=== PATIENT | male | born 1935 | race Caucasian/White ===

== ENCOUNTER → 2016-08-26 | Outpatient (CLI) | payer MEDICARE, OTHER ==
[~2016-08-26] MED LIST: ALLO300T2 PO; AMLO10TA82 PO; ASPI-875 PO; ATOR40TA PO; CHOL200025 PO; CYCL5TAB11 PO; DCS100C PO; FAMO20TA13 PO; FOLI0.4T2 PO; IRBE300T9 PO; ISM30TCR PO; ISM60TCR PO; MELO-195 PO; MTP25TSR PO; MULT-1029 PO; OMEG1CAP51 PO; RT-ALBUTEROL SULF 2.5 MG/3 ML PRE-MIX VIAL IH ONE; TERA2CAP13 PO; TESTOSTERONE INJ
== END ==
LOC: RT 13:27
PROVIDERS: ATTEND Family Medicine
DX: R06.00 Dyspnea, unspecified (principal); F17.210 Nicotine dependence, cigarettes, uncomplicated
CPT/HCPCS: 94060; 94640; 94726; 94729

== ENCOUNTER → 2016-09-08 | Outpatient (CLI) | payer MEDICARE, OTHER ==
[~2016-09-08] MED LIST changes: -RT-ALBUTEROL SULF 2.5 MG/3 ML PRE-MIX VIAL IH ONE
--- NOTE | 2016-09-08 15:25 | Diagnostic Imaging Report ---
EXAMINATION: DEXA scan. INDICATION: Osteopenia. TECHNIQUE: Bone mineral density estimated based on dual energy radiography over the lumbar spine and femoral necks, was performed. FINDINGS: The lumbar spine T-score is 3.4. This is exaggerated by degenerative sclerosis despite attempted correction and femoral neck density measurement would be more accurate in this patient. T score over the left femoral neck is -0.9 and on the right side is -1.3 for an average of -1.1. IMPRESSION: Osteopenia. Dictated by: Dictated on workstation # [id number]
== END ==
LOC: RAD 09:47
PROVIDERS: ATTEND Family Medicine
DX: M85.872 Other specified disorders of bone density and structure, left ankle and foot (principal)
CPT/HCPCS: 77080

== ENCOUNTER → 2016-10-24 | Outpatient (CLI) | payer MEDICARE, OTHER ==
--- NOTE | 2016-10-24 11:23 | Diagnostic Imaging Report ---
PROCEDURE: CT chest without contrast. TECHNIQUE: Multiple contiguous axial images were obtained through the chest without the use of intravenous contrast. INDICATION: Obstructive lung disease. Shortness of breath. FINDINGS: There is beam hardening artifact related to right shoulder replacement. In the right lower lobe posterolateral aspect, there is a 6 mm nodule with central calcification, better appreciated on an image on a thin section reconstruction performed on [employer] with a saved image sent to PACS. This is consistent with a benign calcified granuloma. There is no significant consolidation, mass, or suspicious nodule seen otherwise. No significant interstitial lung disease, emphysema, or bronchiectasis is seen. There is mild ectasia of the thoracic aorta. The heart size is normal. There is no mediastinal mass or significantly enlarged lymph node. No axillary significantly enlarged node. The jose are not opacified on this unenhanced exam with no obvious hilar mass or significant lymphadenopathy. No pericardial or pleural effusion. There are prominent atherosclerotic coronary artery calcifications. Sections in the upper abdomen demonstrate multiple calcified gallstones and a mild degree of diffuse hepatic steatosis. Prominent degenerative changes of the thoracic spine are seen. IMPRESSION: 1. No acute pulmonary abnormality. 2. Cholelithiasis. 3. Hepatic steatosis. Dictated by: Dictated on workstation # [id number]
== END ==
LOC: RAD 08:28
PROVIDERS: ATTEND Nurse Practitioner Family
DX: K80.20 Calculus of gallbladder without cholecystitis without obstruction; R06.00 Dyspnea, unspecified; K76.0 Fatty (change of) liver, not elsewhere classified; G47.34 Idiopathic sleep related nonobstructive alveolar hypoventilation
CPT/HCPCS: 71250

== ENCOUNTER 2016-11-10 19:50 | Outpatient (CLI) | payer MEDICARE, OTHER | END 2016-11-11 06:15 | disposition home or self-care (01) | LOC: SLEEP 19:50 | PROVIDERS: ATTEND Nurse Practitioner Family | DX: G47.34 Idiopathic sleep related nonobstructive alveolar hypoventilation (principal); G47.50 Parasomnia, unspecified | CPT/HCPCS: 95811 ==

== ENCOUNTER 2017-06-20 15:35 | Emergency (ER) | payer MEDICARE, OTHER ==
[~2017-06-20] VITALS: Ht 177.8 cm; Wt 93.4 kg
--- OUTSIDE RECORDS SUMMARY | 2017-06-20 15:42 | XMS REPORT | CCD ---
Author Author [facility]ice [facility] Organization [facility] Address [address] [place] [address] Phone Care Team Providers Care Boiler Technician Name Role Phone PP Unavailable CCM Unavailable Summary Purpose Interface Exchange Insurance Providers Payer name Policy type / Coverage type Covered republican ID Effective Begin Date Effective End Date Earlier Media Commercial Insurance [id number] Unknown Unknown Family history Father Diagnosis Age At Onset Arthritis Unknown Heart Attack Unknown Daughter Nunu Salvador Diagnosis Age At Onset Melanoma Unknown Runs in the family Diagnosis Age At Onset Colon cancer Unknown brain cancer Unknown Social History Social History Element Codes Description Effective Dates Marital status Unknown Amee 08/18/2016 Number of children Unknown 2 10/22/2014 Employment Unknown Retired 10/22/[address]: 675756 Currently drinks alcohol 10/22/2014 Allergies, Adverse Reactions, Alerts Allergies, Adverse Reactions, Alerts data not found Past Medical History Illness Codes Condition Status Onset Date Resolved Date Essential (primary) hypertension ICD-9: 401.1 ICD-10: I10 Active 08/18/2016 Unknown Mixed hyperlipidemia ICD-9: 272.4 ICD-10: E78.2 Active 10/21/2014 Unknown Obstructive sleep apnea (adult) (pediatric) ICD-9: 327.23 ICD-10: G47.33 Active 12/26/2016 Unknown Encounter for immunization ICD-9: V04.81 ICD-10: Z23 Active 01/16/2017 Unknown Benign prostatic hyperplasia without lower urinary tract symptoms ICD-9: 600.00 ICD-10: N40.0 Active 12/26/2016 Unknown Other forms of dyspnea ICD-9: 786.09 ICD-10: R06.09 Active 12/08/2015 Unknown Other specified disorders of bone density and structure, left ankle and foot ICD-9: 733.90 ICD-10: M85.872 Active 08/18/2016 Unknown Essential (primary) hypertension ICD-9: 401.9 ICD-10: I10 Active 10/21/2014 Unknown Slow transit constipation ICD-9: 564.01 ICD-10: K59.01 Active 08/04/2015 Unknown Encounter for immunization ICD-9: V03.9 ICD-10: Z23 Active 12/29/2015 Unknown Tinea corporis ICD-9: 110.5 ICD-10: B35.4 Active 12/29/2015 Unknown Anemia, unspecified ICD-9: 285.9 ICD-10: D64.9 Active 12/08/2015 Unknown Other myositis, unspecified lower leg ICD-9: 729.1 ICD-10: M60.869 Active 10/21/2014 Unknown Pain in leg, unspecified ICD-9: 729.5 ICD-10: M79.606 Active 02/01/2015 Unknown Hyperlipidemia Unknown Active 10/22/2014 Unknown Hypertension Unknown Active 10/22/2014 Unknown ESSENTIAL HYPERTENSION ICD-9: 401.9 Active 10/21/2014 Unknown HYPERLIPIDEMIA ICD-9: 272.4 Active 10/21/2014 Unknown MYALGIA AND MYOSITIS ICD-9: 729.1 Active 10/21/2014 Unknown Problems Condition Codes Effective Dates Condition Status Essential (primary) hypertension ICD-9: 401.1 ICD-10: I10 08/18/2016 Active Mixed hyperlipidemia ICD-9: 272.4 ICD-10: E78.2 10/21/2014 Active Obstructive sleep apnea (adult) (pediatric) ICD-9: 327.23 ICD-10: G47.33 12/26/2016 Active Encounter for immunization ICD-9: V04.81 ICD-10: Z23 01/16/2017 Active Benign prostatic hyperplasia without lower urinary tract symptoms ICD-9: 600.00 ICD-10: N40.0 12/26/2016 Active Other forms of dyspnea ICD-9: 786.09 ICD-10: R06.09 12/08/2015 Active Other specified disorders of bone density and structure, left ankle and foot ICD-9: 733.90 ICD-10: M85.872 08/18/2016 Active Essential (primary) hypertension ICD-9: 401.9 ICD-10: I10 10/21/2014 Active Slow transit constipation ICD-9: 564.01 ICD-10: K59.01 08/04/2015 Active Encounter for immunization ICD-9: V03.9 ICD-10: Z23 12/29/2015 Active Tinea corporis ICD-9: 110.5 ICD-10: B35.4 12/29/2015 Active Anemia, unspecified ICD-9: 285.9 ICD-10: D64.9 12/08/2015 Active Other myositis, unspecified lower leg ICD-9: 729.1 ICD-10: M60.869 10/21/2014 Active Pain in leg, unspecified ICD-9: 729.5 ICD-10: M79.606 02/01/2015 Active Hyperlipidemia Unknown 10/22/2014 Active Hypertension Unknown 10/22/2014 Active ESSENTIAL HYPERTENSION ICD-9: 401.9 10/21/2014 Active HYPERLIPIDEMIA ICD-9: 272.4 10/21/2014 Active MYALGIA AND MYOSITIS ICD-9: 729.1 10/21/2014 Active Medications Medication Codes Instructions Start Date Stop Date Status Fill Instructions Avapro 300 mg tablet RxNorm: 188330 TAKE 1 TABLET DAILY 201604/06/2018 Active meloxicam 15 mg tablet RxNorm: 175574 TAKE 1 TABLET DAILY 04/0704/01/2018 Active isosorbide mononitrate ER 30 mg tablet,extended release 24 hr RxNorm: 182037 TAKE 1 TABLET DAILY 04/07/2017 04/01/2018 Active atorvastatin 20 mg tablet RxNorm: 863886 TAKE 1 TABLET DAILY 10/09/2017 Active Breo Ellipta 100 mcg-25 mcg/dose powder for inhalation RxNorm: 4386914 1 Puff(s) INH daily 09/30/2016 09/24/2017 Active Breo Ellipta 100 mcg-25 mcg/dose powder for inhalation RxNorm: 3564474 1 Puff(s) INH daily 09/30/2016 09/29/2016 Inactive Calcium 600 + D(3) 600 mg-125 unit tablet RxNorm: 7507861 1 Tablet(s) PO daily 09/19/2016 No Stop Date Active terazosin 2 mg capsule RxNorm: 319080 TAKE 1 CAPSULE AT BEDTIME 09/02/2016 08/27/2017 Active metoprolol succinate ER 25 mg tablet,extended release 24 hr RxNorm: 483236 TAKE 1 TABLET DAILY 07/29/2016 07/23/2017 Active Avapro 300 mg tablet RxNorm: 278358 TAKE 1 TABLET DAILY 201604/08/2017 Inactive allopurinol 300 mg tablet RxNorm: 148242 TAKE 1 TABLET DAILY 06/14/2017 Active amoxicillin 500 mg capsule RxNorm: 715380 4 Capsule(s) PO daily 06/20/2016 06/23/2016 Inactive clotrimazole-betamethasone 1 %-0.05 % topical cream RxNorm: 567498 APPLY 1 APPLICATION TOPICALLY 3 TIMES A DAY 06/03/2016 08/31/2016 Inactive famotidine 20 mg tablet RxNorm: 241252 TAKE 1 TABLET TWICE A DAY 05/26/2016 05/20/2017 Inactive meloxicam 15 mg tablet RxNorm: 970862 1 Tablet(s) PO daily 06/201604/06/2017 Inactive isosorbide mononitrate ER 30 mg tablet,extended release 24 hr RxNorm: 087584 TAKE 1 TABLET DAILY 04/07/2016 04/01/2017 Inactive Diflucan 150 mg tablet RxNorm: 685493 1 Tablet(s) PO daily 01/12/2016 Inactive atorvastatin 20 mg tablet RxNorm: 619433 TAKE 1 TABLET DAILY 12/10/2016 Inactive Diflucan 150 mg tablet RxNorm: 032918 1 Tablet(s) PO daily 12/22/2015 Inactive Avapro 300 mg tablet RxNorm: 029550 TAKE 1 TABLET DAILY 201507/12/2016 Inactive terazosin 2 mg capsule RxNorm: 404800 1 Capsule(s) PO [facility] 09/1609/01/2016 Inactive terazosin 2 mg capsule RxNorm: 692113 TAKE 1 CAPSULE DAILY 03/07/2016 Inactive metoprolol succinate ER 25 mg tablet,extended release 24 hr RxNorm: 562317 1 Tablet(s) PO daily 07/22/2015 07/15/2016 Inactive allopurinol 300 mg tablet RxNorm: 303353 1 Tablet(s) PO daily 06/18/2015 06/11/2016 Inactive isosorbide mononitrate ER 30 mg tablet,extended release 24 hr RxNorm: 793567 1 Tablet(s) PO daily 03/31/2015 03/24/2016 Inactive meloxicam 15 mg tablet RxNorm: 954854 1 Tablet(s) PO daily 03/09/2016 Inactive coenzyme Q10 100 mg capsule RxNorm: 588862 1 Capsule(s) PO daily 02/02/2015 03/03/2015 Inactive ketoconazole 2 % shampoo RxNorm: 605654 1 Application TOP daily 02/02/2015 04/02/2015 Inactive clotrimazole-betamethasone 1 %-0.05 % topical cream RxNorm: 667072 1 Application TOP TID 02/02/2015 06/01/2015 Inactive Avapro 300 mg tablet RxNorm: 814076 1 Tablet(s) PO daily 201410/19/2015 Inactive famotidine 20 mg tablet RxNorm: 264399 1 Tablet(s) PO BID 01/0103/25/2016 Inactive famotidine 20 mg tablet RxNorm: 803275 1 Tablet(s) PO daily 12/31/2014 Inactive famotidine 20 mg tablet RxNorm: 875211 1 Tablet(s) PO daily 12/31/2014 Inactive famotidine 20 mg tablet RxNorm: 725494 1 Tablet(s) PO daily 12/31/2014 Inactive terazosin 2 mg capsule RxNorm: 697764 1 Capsule(s) PO daily 07/201409/09/2015 Inactive terazosin 2 mg capsule RxNorm: 181789 1 Capsule(s) PO daily 07/201412/18/2014 Inactive atorvastatin 20 mg tablet RxNorm: 874814 1 Tablet(s) PO daily 10/22/2014 12/16/2015 Inactive amoxicillin 500 mg capsule RxNorm: 270979 4 Capsule(s) PO daily 10/22/2014 10/25/2014 Inactive atorvastatin 40 mg tablet RxNorm: 377784 1 Tablet(s) PO daily 09/18/2014 10/21/2014 Inactive atorvastatin 40 mg tablet RxNorm: 546156 1 Tablet(s) PO daily 09/18/2014 09/17/2014 Inactive amlodipine 10 mg tablet RxNorm: 502928 1 Tablet(s) PO daily No Start Date Active Colace 100 mg capsule RxNorm: 3136939 1 Capsule(s) PO BID No Start Date Active aspirin 81 mg tablet RxNorm: 044624 1 Tablet(s) PO daily No Start Date Active Vitamin D3 5,000 unit tablet RxNorm: 791696 1 Tablet(s) PO daily No Start Date Active metoprolol succinate ER 25 mg tablet,extended release 24 hr RxNorm: 045157 1 Tablet(s) PO daily No Start Date 2015 Inactive omega 3-vitamin E-fish oil oral RxNorm: 4419 oral No Start Date 08/04/2015 Inactive Calcium 600 oral RxNorm: oral No Start Date 09/18/2016 Inactive isosorbide mononitrate ER 30 mg tablet,extended release 24 hr RxNorm: 026567 1 Tablet(s) PO daily No Start Date 2014 Inactive Avapro 300 mg tablet RxNorm: 890057 1 Tablet(s) PO daily No Start Date 01/22/2015 Inactive allopurinol 300 mg tablet RxNorm: 932847 1 Tablet(s) PO daily No Start Date 06/17/2015 Inactive Vitamin D3 (with calcium carbonate) oral RxNorm: 433500 oral No Start Date 09/18/2016 Inactive famotidine 20 mg tablet RxNorm: 104982 1 Tablet(s) PO daily No Start Date 12/29/2014 Inactive multivitamin oral RxNorm: 23488 oral No Start Date 08/04/2015 Inactive terazosin 2 mg tablet RxNorm: 562360 1 Tablet(s) PO QHS No Start Date 09/16/2015 Inactive meloxicam 15 mg tablet RxNorm: 803726 1 Tablet(s) PO daily No Start Date 03/15/2015 Inactive Lipitor 40 mg tablet RxNorm: 273135 1 Tablet(s) PO daily No Start Date 02/02/2015 Inactive Medication Administered No Medication Administered data Immunizations Vaccine Codes Date Status Influenza CVX: 141 01/16/2017 completed Influenza CVX: 141 12/30/2015 completed Pneumococcal (Adult) CVX: 133 12/30/2015 completed Influenza CVX: 141 02/15/2014 completed Zoster CVX: 121 08/16/2011 completed Assessments Condition Codes Effective Dates Mixed hyperlipidemia ICD-10: E78.2 ICD-9: 272.4 05/29/2017 Essential (primary) hypertension ICD-10: I10 ICD-9: 401.1 05/29/2017 Obstructive sleep apnea (adult) (pediatric) ICD-10: G47.33 ICD-9: 327.23 05/29/2017 Encounter for immunization ICD-10: Z23 ICD-9: V04.81 01/16/2017 Benign prostatic hyperplasia without lower urinary tract symptoms ICD-10: N40.0 ICD-9: 600.00 12/26/2016 Other forms of dyspnea ICD-10: R06.09 ICD-9: 786.09 08/18/2016 Other specified disorders of bone density and structure, left ankle and foot ICD-10: M85.872 ICD-9: 733.90 08/18/2016 Slow transit constipation ICD-10: K59.01 ICD-9: 564.01 04/28/2016 Essential (primary) hypertension ICD-10: I10 ICD-9: 401.9 04/28/2016 Tinea corporis ICD-10: B35.4 ICD-9: 110.5 12/30/2015 Encounter for immunization ICD-10: Z23 ICD-9: V03.9 12/30/2015 Anemia, unspecified ICD-10: D64.9 ICD-9: 285.9 12/09/2015 Pain in leg, unspecified ICD-10: M79.606 ICD-9: 729.5 02/02/2015 Other myositis, unspecified lower leg ICD-10: M60.869 ICD-9: 729.1 02/02/2015 HYPERLIPIDEMIA ICD-9: 272.4 10/22/2014 ESSENTIAL HYPERTENSION ICD-9: 401.9 10/22 MYALGIA AND MYOSITIS ICD-9: 729.1 2014 Reason For Visit Reason For Visit Effective Dates Notes hypertension 05/29/2017 hypertension 01/16/2017 hypertension 12/26/2016 hypertension 08/18/2016 hypertension 04/28/2016 hypertension 12/30/2015 hypertension 12/09/2015 myalgias 08/05/2015 myalgias 02/02/2015 myalgias 10/22/2014 Results Observation Observation Code Item Item Code Result Date Comp Metabolic Jwg513 NA 143 mEq/L 05/18/2017 Comp Metabolic Oyg059 K 5.1 mEq/L 05/18/2017 Comp Metabolic Kmp021 CL 105 mEq/L 05/18/2017 Comp Metabolic Epu701 CO2 30.0 mEq/L 05/18/2017 Comp Metabolic Ifo933 ANION GAP 13 05/18/2017 Comp Metabolic Uje176 GLUCOSE 108 mg/dL 05/18/2017 Comp Metabolic Ejy194 Creat 1.0 mg/dL 05/18/2017 Comp Metabolic Dsi266 eGFR 77 ml/min/1.73m2 05/18/2017 Comp Metabolic Qpf127 BUN 12 mg/dL 05/18/2017 Comp Metabolic Qno359 B/C Ratio 12.1 Ratio 05/18/2017 Comp Metabolic Fjx146 CALCIUM 9.7 mg/dL 05/18/2017 Comp Metabolic Wzm979 ALK PHOS 140 U/L 05/18/2017 Comp Metabolic Dar577 AST(SGOT) 18 U/L 05/18/2017 Comp Metabolic Xmc753 ALT(SGPT) 30 U/L 05/18/2017 Comp Metabolic Oxq621 BILI T 0.6 mg/dL 05/18/2017 Comp Metabolic Uys296 ALBUMIN 4.1 g/dL 05/18/2017 Comp Metabolic Vdq343 TPRO 6.5 g/dL 05/18/2017 Comp Metabolic Nks835 GLOB 2.4 g/dL 05/18/2017 Comp Metabolic Jwt927 A/G Ratio 1.7 Ratio 05/18/2017 Comp Metabolic Pbz241 Osmo 285 mOsmo 05/18/2017 B12 Uas117 B12 1065.00 pg/ml 05/18/2017 Tsh Ord6 TSH (3rd IS) 1.53 uIU/mL 05/18/2017 Cbc With Differential Ord2 WBC 9.29 K/ul 05/18/2017 Cbc With Differential Ord2 RBC 4.18 M/ul 05/18/2017 Cbc With Differential Ord2 HGB 13.6 g/dl 05/18/2017 Cbc With Differential Ord2 Neut% 58.0 % 05/18/2017 Cbc With Differential Ord2 HCT 41.1 % 05/18/2017 Cbc With Differential Ord2 MCV 98.3 fl 05/18/2017 Cbc With Differential Ord2 Lymph% 29.0 % 05/18/2017 Cbc With Differential Ord2 MCH 32.5 pg 05/18/2017 Cbc With Differential Ord2 [place]% 8.9 % 05/18/2017 Cbc With Differential Ord2 MCHC 33.1 pg 05/18/2017 Cbc With Differential Ord2 Eos% 3.9 % 05/18/2017 Cbc With Differential Ord2 PLT 184 K/ul 05/18/2017 Cbc With Differential Ord2 Baso% 0.2 % 05/18/2017 Cbc With Differential Ord2 RDW 13.4 % 05/18/2017 Cbc With Differential Ord2 Neut ABS# 5.39 K/ul 05/18/2017 Cbc With Differential Ord2 Lymph ABS# 2.69 K/ul 05/18/2017 Cbc With Differential Ord2 [place] ABS# 0.8 K/ul 05/18/2017 Cbc With Differential Ord2 Eos ABS# 0.4 K/ul 05/18/2017 Cbc With Differential Ord2 Baso ABS# 0.0 K/ul 05/18/2017 Lipid Ord30 CHOL 165 mg/dL 05/18/2017 Lipid Ord30 HDL 68.0 mg/dl 05/18/2017 Lipid Ord30 TRIG 168 mg/dL 05/18/2017 Lipid Ord30 LDL 63 mg/dL 05/18/2017 Lipid Ord30 C/HDL 2.4 Ratio 05/18/2017 Total Psa Ord10 PSA 1.37 ng/mL 12/23/2016 Cbc With Differential Ord2 WBC 7.23 K/ul 12/23/2016 Cbc With Differential Ord2 RBC 3.86 M/ul 12/23/2016 Cbc With Differential Ord2 HGB 12.8 g/dl 12/23/2016 Cbc With Differential Ord2 Neut% 51.6 % 12/23/2016 Cbc With Differential Ord2 HCT 37.9 % 12/23/2016 Cbc With Differential Ord2 MCV 98.2 fl 12/23/2016 Cbc With Differential Ord2 Lymph% 33.6 % 12/23/2016 Cbc With Differential Ord2 MCH 33.2 pg 12/23/2016 Cbc With Differential Ord2 [place]% 10.1 % 12/23/2016 Cbc With Differential Ord2 MCHC 33.8 pg 12/23/2016 Cbc With Differential Ord2 Eos% 4.4 % 12/23/2016 Cbc With Differential Ord2 PLT 184 K/ul 12/23/2016 Cbc With Differential Ord2 Baso% 0.3 % 12/23/2016 Cbc With Differential Ord2 RDW 13.4 % 12/23/2016 Cbc With Differential Ord2 Neut ABS# 3.73 K/ul 12/23/2016 Cbc With Differential Ord2 Lymph ABS# 2.43 K/ul 12/23/2016 Cbc With Differential Ord2 [place] ABS# 0.7 K/ul 12/23/2016 Cbc With Differential Ord2 Eos ABS# 0.3 K/ul 12/23/2016 Cbc With Differential Ord2 Baso ABS# 0.0 K/ul 12/23/2016 B12 Hpw151 B12 1132.00 pg/ml 12/23/2016 Lipid Ord30 CHOL 168 mg/dL 12/23/2016 Lipid Ord30 HDL 57.0 mg/dl 12/23/2016 Lipid Ord30 TRIG 138 mg/dL 12/23/2016 Lipid Ord30 LDL 83 mg/dL 12/23/2016 Lipid Ord30 C/HDL 2.9 Ratio 12/23/2016 Comp Metabolic Dow587 NA 142 mEq/L 12/23/2016 Comp Metabolic Yaf659 K 4.5 mEq/L 12/23/2016 Comp Metabolic Cfd950 CL 106 mEq/L 12/23/2016 Comp Metabolic Gda683 CO2 28.0 mEq/L 12/23/2016 Comp Metabolic Eou994 ANION GAP 13 12/23/2016 Comp Metabolic Ici258 GLUCOSE 119 mg/dL 12/23/2016 Comp Metabolic Iiz626 Creat 0.9 mg/dL 12/23/2016 Comp Metabolic Eck888 eGFR 88 ml/min/1.73m2 12/23/2016 Comp Metabolic Wza665 BUN 14 mg/dL 12/23/2016 Comp Metabolic Whi379 B/C Ratio 15.9 Ratio 12/23/2016 Comp Metabolic Yst100 CALCIUM 9.1 mg/dL 12/23/2016 Comp Metabolic Zbz093 ALK PHOS 105 U/L 12/23/2016 Comp Metabolic Tdf047 AST(SGOT) 18 U/L 12/23/2016 Comp Metabolic Vlm606 ALT(SGPT) 21 U/L 12/23/2016 Comp Metabolic Siw359 BILI T 0.6 mg/dL 12/23/2016 Comp Metabolic Wau531 ALBUMIN 4.0 g/dL 12/23/2016 Comp Metabolic Zsb652 TPRO 6.3 g/dL 12/23/2016 Comp Metabolic Paz711 GLOB 2.3 g/dL 12/23/2016 Comp Metabolic Rmt892 A/G Ratio 1.7 Ratio 12/23/2016 Comp Metabolic Aje670 Osmo 285 mOsmo 12/23/2016 Lipid Ord30 CHOL 209 mg/dL 04/25/2016 Lipid Ord30 HDL 61.0 mg/dl 04/25/2016 Lipid Ord30 TRIG 276 mg/dL 04/25/2016 Lipid Ord30 LDL 93 mg/dL 04/25/2016 Lipid Ord30 C/HDL 3.4 Ratio 04/25/2016 Comp Metabolic Nea117 NA 139 mEq/L 04/25/2016 Comp Metabolic Nau963 K 5.0 mEq/L 04/25/2016 Comp Metabolic Jaj152 CL 104 mEq/L 04/25/2016 Comp Metabolic Hnv811 CO2 29.0 mEq/L 04/25/2016 Comp Metabolic Ovg432 ANION GAP 11 04/25/2016 Comp Metabolic Kgl001 GLUCOSE 110 mg/dL 04/25/2016 Comp Metabolic Orh359 Creat 1.0 mg/dL 04/25/2016 Comp Metabolic Kns618 eGFR 77 ml/min/1.73m2 04/25/2016 Comp Metabolic Qbz993 BUN 17 mg/dL 04/25/2016 Comp Metabolic Zto184 B/C Ratio 17.2 Ratio 04/25/2016 Comp Metabolic Ker969 CALCIUM 9.6 mg/dL 04/25/2016 Comp Metabolic Kog812 ALK PHOS 114 U/L 04/25/2016 Comp Metabolic Ieg015 AST(SGOT) 22 U/L 04/25/2016 Comp Metabolic Gey552 ALT(SGPT) 24 U/L 04/25/2016 Comp Metabolic Ggt524 BILI T 0.6 mg/dL 04/25/2016 Comp Metabolic Xte282 ALBUMIN 4.4 g/dL 04/25/2016 Comp Metabolic Ail059 TPRO 6.8 g/dL 04/25/2016 Comp Metabolic Vae656 GLOB 2.4 g/dL 04/25/2016 Comp Metabolic Dms954 A/G Ratio 1.8 Ratio 04/25/2016 Comp Metabolic Mqq378 Osmo 280 mOsmo 04/25/2016 B12 Vmt050 B12 264.00 pg/ml 04/25/2016 Cbc With Differential Ord2 WBC 7.82 K/ul 04/25/2016 Cbc With Differential Ord2 RBC 4.26 M/ul 04/25/2016 Cbc With Differential Ord2 HGB 13.9 g/dl 04/25/2016 Cbc With Differential Ord2 Neut% 51.8 % 04/25/2016 Cbc With Differential Ord2 HCT 41.1 % 04/25/2016 Cbc With Differential Ord2 MCV 96.5 fl 04/25/2016 Cbc With Differential Ord2 Lymph% 33.5 % 04/25/2016 Cbc With Differential Ord2 MCH 32.6 pg 04/25/2016 Cbc With Differential Ord2 [place]% 10.1 % 04/25/2016 Cbc With Differential Ord2 MCHC 33.8 pg 04/25/2016 Cbc With Differential Ord2 Eos% 4.3 % 04/25/2016 Cbc With Differential Ord2 PLT 177 K/ul 04/25/2016 Cbc With Differential Ord2 Baso% 0.3 % 04/25/2016 Cbc With Differential Ord2 RDW 13.1 % 04/25/2016 Cbc With Differential Ord2 Neut ABS# 4.05 K/ul 04/25/2016 Cbc With Differential Ord2 Lymph ABS# 2.62 K/ul 04/25/2016 Cbc With Differential Ord2 [place] ABS# 0.8 K/ul 04/25/2016 Cbc With Differential Ord2 Eos ABS# 0.3 K/ul 04/25/2016 Cbc With Differential Ord2 Baso ABS# 0.0 K/ul 04/25/2016 B12 Hmo515 B12 239.00 pg/ml 12/09/2015 Tsh Ord6 hTSH II 1.24 uIU/mL 12/07/2015 Comp Metabolic Hqi820 NA 140 mEq/L 12/07/2015 Comp Metabolic Hds681 K 4.6 mEq/L 12/07/2015 Comp Metabolic Zlb324 CL 105 mEq/L 12/07/2015 Comp Metabolic Bib820 CO2 29.0 mEq/L 12/07/2015 Comp Metabolic Cvt568 ANION GAP 11 12/07/2015 Comp Metabolic Xhy729 GLUCOSE 116 mg/dL 12/07/2015 Comp Metabolic Jrv123 Creat 0.9 mg/dL 12/07/2015 Comp Metabolic Zmi045 eGFR 89 ml/min/1.73m2 12/07/2015 Comp Metabolic Oqv837 BUN 11 mg/dL 12/07/2015 Comp Metabolic Sbu270 B/C Ratio 12.6 Ratio 12/07/2015 Comp Metabolic Aht298 CALCIUM 9.4 mg/dL 12/07/2015 Comp Metabolic Edb531 ALK PHOS 94 U/L 12/07/2015 Comp Metabolic Gbo157 AST(SGOT) 16 U/L 12/07/2015 Comp Metabolic Apv369 ALT(SGPT) 16 U/L 12/07/2015 Comp Metabolic Tdi566 BILI T 0.6 mg/dL 12/07/2015 Comp Metabolic Epl891 ALBUMIN 4.1 g/dL 12/07/2015 Comp Metabolic Imt533 TPRO 6.4 g/dL 12/07/2015 Comp Metabolic Fvl994 GLOB 2.3 g/dL 12/07/2015 Comp Metabolic Cce636 A/G Ratio 1.8 Ratio 12/07/2015 Comp Metabolic Czi009 Osmo 280 mOsmo 12/07/2015 Lipid Ord30 CHOL 186 mg/dL 12/07/2015 Lipid Ord30 HDL 56.0 mg/dl 12/07/2015 Lipid Ord30 TRIG 199 mg/dL 12/07/2015 Lipid Ord30 LDL 90 mg/dL 12/07/2015 Lipid Ord30 C/HDL 3.3 Ratio 12/07/2015 Cbc With Differential Ord2 WBC 7.44 K/ul 12/07/2015 Cbc With Differential Ord2 RBC 4.06 M/ul 12/07/2015 Cbc With Differential Ord2 HGB 13.3 g/dl 12/07/2015 Cbc With Differential Ord2 Neut% 48.5 % 12/07/2015 Cbc With Differential Ord2 HCT 39.7 % 12/07/2015 Cbc With Differential Ord2 MCV 97.8 fl 12/07/2015 Cbc With Differential Ord2 Lymph% 36.2 % 12/07/2015 Cbc With Differential Ord2 MCH 32.8 pg 12/07/2015 Cbc With Differential Ord2 [place]% 9.9 % 12/07/2015 Cbc With Differential Ord2 MCHC 33.5 pg 12/07/2015 Cbc With Differential Ord2 Eos% 5.0 % 12/07/2015 Cbc With Differential Ord2 PLT 169 K/ul 12/07/2015 Cbc With Differential Ord2 Baso% 0.4 % 12/07/2015 Cbc With Differential Ord2 RDW 13.3 % 12/07/2015 Cbc With Differential Ord2 Neut ABS# 3.61 K/ul 12/07/2015 Cbc With Differential Ord2 Lymph ABS# 2.69 K/ul 12/07/2015 Cbc With Differential Ord2 [place] ABS# 0.7 K/ul 12/07/2015 Cbc With Differential Ord2 Eos ABS# 0.4 K/ul 12/07/2015 Cbc With Differential Ord2 Baso ABS# 0.0 K/ul 12/07/2015 Cbc With Differential Ord2 WBC 7.60 K/ul 07/31/2015 Cbc With Differential Ord2 RBC 4.05 M/ul 07/31/2015 Cbc With Differential Ord2 HGB 12.7 g/dl 07/31/2015 Cbc With Differential Ord2 Neut% 51.4 % 07/31/2015 Cbc With Differential Ord2 HCT 39.2 % 07/31/2015 Cbc With Differential Ord2 MCV 96.8 fl 07/31/2015 Cbc With Differential Ord2 Lymph% 33.0 % 07/31/2015 Cbc With Differential Ord2 MCH 31.4 pg 07/31/2015 Cbc With Differential Ord2 [place]% 11.2 % 07/31/2015 Cbc With Differential Ord2 MCHC 32.4 pg 07/31/2015 Cbc With Differential Ord2 Eos% 4.1 % 07/31/2015 Cbc With Differential Ord2 PLT 180 K/ul 07/31/2015 Cbc With Differential Ord2 Baso% 0.3 % 07/31/2015 Cbc With Differential Ord2 RDW 13.4 % 07/31/2015 Cbc With Differential Ord2 Neut ABS# 3.91 K/ul 07/31/2015 Cbc With Differential Ord2 Lymph ABS# 2.51 K/ul 07/31/2015 Cbc With Differential Ord2 [place] ABS# 0.9 K/ul 07/31/2015 Cbc With Differential Ord2 Eos ABS# 0.3 K/ul 07/31/2015 Cbc With Differential Ord2 Baso ABS# 0.0 K/ul 07/31/2015 Cbc With Differential Ord2 New Analyzer Notice Please note new ref ranges starting 04-29-2015 due to implemntation of new five part differential hematolgy analyzer. 07/31/2015 Comp Metabolic Mum488 NA 140 mEq/L 07/31/2015 Comp Metabolic Bww021 K 4.3 mEq/L 07/31/2015 Comp Metabolic Dea945 CL 105 mEq/L 07/31/2015 Comp Metabolic Hjz091 CO2 28.0 mEq/L 07/31/2015 Comp Metabolic Ggl623 ANION GAP 11 07/31/2015 Comp Metabolic Qew788 GLUCOSE 112 mg/dL 07/31/2015 Comp Metabolic Cqb465 Creat 0.9 mg/dL 07/31/2015 Comp Metabolic Cmc216 eGFR 85 ml/min/1.73m2 07/31/2015 Comp Metabolic Zjw967 BUN 15 mg/dL 07/31/2015 Comp Metabolic Ynr070 B/C Ratio 16.5 Ratio 07/31/2015 Comp Metabolic Jwx827 CALCIUM 9.2 mg/dL 07/31/2015 Comp Metabolic Cci892 ALK PHOS 135 U/L 07/31/2015 Comp Metabolic Dox430 AST(SGOT) 27 U/L 07/31/2015 Comp Metabolic Mew065 ALT(SGPT) 30 U/L 07/31/2015 Comp Metabolic Abf373 BILI T 0.5 mg/dL 07/31/2015 Comp Metabolic Ysf691 ALBUMIN 4.0 g/dL 07/31/2015 Comp Metabolic Aep455 TPRO 6.2 g/dL 07/31/2015 Comp Metabolic Xky399 GLOB 2.3 g/dL 07/31/2015 Comp Metabolic Nef370 A/G Ratio 1.8 Ratio 07/31/2015 Comp Metabolic Sfx122 Osmo 281 mOsmo 07/31/2015 Tsh Ord6 hTSH II 1.20 uIU/mL 07/31/2015 Lipid Ord30 CHOL 166 mg/dL 07/31/2015 Lipid Ord30 HDL 61.0 mg/dl 07/31/2015 Lipid Ord30 TRIG 129 mg/dL 07/31/2015 Lipid Ord30 LDL 79 mg/dL 07/31/2015 Lipid Ord30 C/HDL 2.7 Ratio 07/31/2015 Review of Systems System Result Effective Dates Constitutional No recent illness 2017 Constitutional No chills 05/29/2017 Constitutional fatigue 05/29/2017 Constitutional No fever 05/29/2017 Constitutional No insomnia 05/29/2017 Constitutional No malaise 05/29/2017 Eyes No blindness 05/29/2017 Eyes No vision change 05/29/2017 Ears/Nose/Throat/Neck No dental pain 03/2018 Ears/Nose/Throat/Neck No dizziness 2017 Ears/Nose/Throat/Neck No dysphagia 2017 Ears/Nose/Throat/Neck No headache 2017 Ears/Nose/Throat/Neck No hearing loss 03/2018 Ears/Nose/Throat/Neck No nasal allergies 05/29/2017 Ears/Nose/Throat/Neck No sore throat 03/2018 Ears/Nose/Throat/Neck No postnasal drip 05/29/2017 Ears/Nose/Throat/Neck No sinus congestion 05/29/2017 Cardiovascular No chest pain/pressure 03/2018 Cardiovascular dyspnea 05/29/2017 Cardiovascular No edema 05/29/2017 Cardiovascular exercise intolerance 05/29 Cardiovascular fatigue 05/29/2017 Respiratory No chest tightness 2017 Respiratory No cough 05/29/2017 Respiratory dyspnea on exertion 2017 Respiratory No dyspnea 05/29/2017 Respiratory No pedal edema 05/29/2017 Gastrointestinal No abdominal pain 2017 Gastrointestinal No constipation 2017 Gastrointestinal No diarrhea 05/29/2017 Gastrointestinal No gastroesophageal reflux 05/29/2017 Gastrointestinal No nausea 05/29/2017 Gastrointestinal No vomiting 05/29/2017 Genitourinary/Nephrology No dysuria 05/29 Genitourinary/Nephrology No urinary urgency 05/29/2017 Genitourinary/Nephrology No urinary incontinence 05/29/2017 Musculoskeletal No stiffness 05/29/2017 Musculoskeletal No swelling 05/29/2017 Musculoskeletal No muscle weakness 2017 Musculoskeletal No myalgias 05/29/2017 Dermatologic No rash 05/29/2017 Dermatologic No sores 05/29/2017 Dermatologic No scar 05/29/2017 Neurologic No dizziness 05/29/2017 Neurologic No headache 05/29/2017 Neurologic No neck pain 05/29/2017 Neurologic No syncope 05/29/2017 Psychiatric No anxiety 05/29/2017 Psychiatric No depression 05/29/2017 Constitutional No recent illness 2016 Constitutional No chills 01/16/2017 Constitutional fatigue 01/16/2017 Constitutional No fever 01/16/2017 Constitutional No insomnia 01/16/2017 Constitutional No malaise 01/16/2017 Ears/Nose/Throat/Neck No nasal allergies 01/16/2017 Ears/Nose/Throat/Neck No sore throat 05/2016 Ears/Nose/Throat/Neck No sinus congestion 01/16/2017 Cardiovascular No chest pain/pressure 05/2016 Cardiovascular dyspnea 01/16/2017 Cardiovascular No edema 01/16/2017 Cardiovascular exercise intolerance 01/16 Cardiovascular fatigue 01/16/2017 Respiratory No chest tightness 2016 Respiratory No cough 01/16/2017 Respiratory dyspnea on exertion 2016 Respiratory No dyspnea 01/16/2017 Respiratory No pedal edema 01/16/2017 Gastrointestinal No abdominal pain 2016 Gastrointestinal No constipation 2016 Gastrointestinal No diarrhea 01/16/2017 Gastrointestinal No gastroesophageal reflux 01/16/2017 Gastrointestinal No nausea 01/16/2017 Gastrointestinal No vomiting 01/16/2017 Genitourinary/Nephrology No dysuria 01/16 Genitourinary/Nephrology No urinary urgency 01/16/2017 Genitourinary/Nephrology No urinary incontinence 01/16/2017 Musculoskeletal No stiffness 01/16/2017 Musculoskeletal No swelling 01/16/2017 Musculoskeletal No muscle weakness 2016 Musculoskeletal No myalgias 01/16/2017 Dermatologic No rash 01/16/2017 Dermatologic No sores 01/16/2017 Dermatologic No scar 01/16/2017 Neurologic No dizziness 01/16/2017 Neurologic No headache 01/16/2017 Neurologic No neck pain 01/16/2017 Neurologic No syncope 01/16/2017 Psychiatric No anxiety 01/16/2017 Psychiatric No depression 01/16/2017 Ears/Nose/Throat/Neck No dizziness 2016 Constitutional No recent illness 2016 Constitutional No chills 12/26/2016 Constitutional fatigue 12/26/2016 Constitutional No fever 12/26/2016 Constitutional No insomnia 12/26/2016 Constitutional No malaise 12/26/2016 Eyes No blindness 12/26/2016 Eyes No vision change 12/26/2016 Ears/Nose/Throat/Neck No dental pain 02/2017 Ears/Nose/Throat/Neck No dizziness 2016 Ears/Nose/Throat/Neck No dysphagia 2016 Ears/Nose/Throat/Neck No headache 2016 Ears/Nose/Throat/Neck No hearing loss 02/2017 Ears/Nose/Throat/Neck No nasal allergies 12/26/2016 Ears/Nose/Throat/Neck No sore throat 02/2017 Ears/Nose/Throat/Neck No postnasal drip 12/26/2016 Ears/Nose/Throat/Neck No sinus congestion 12/26/2016 Cardiovascular No chest pain/pressure 02/2017 Cardiovascular dyspnea 12/26/2016 Cardiovascular No edema 12/26/2016 Cardiovascular exercise intolerance 12/26 Cardiovascular fatigue 12/26/2016 Respiratory No chest tightness 2016 Respiratory No cough 12/26/2016 Respiratory dyspnea on exertion 2016 Respiratory No dyspnea 12/26/2016 Respiratory No pedal edema 12/26/2016 Gastrointestinal No abdominal pain 2016 Gastrointestinal No constipation 2016 Gastrointestinal No diarrhea 12/26/2016 Gastrointestinal No gastroesophageal reflux 12/26/2016 Gastrointestinal No nausea 12/26/2016 Gastrointestinal No vomiting 12/26/2016 Musculoskeletal No stiffness 12/26/2016 Musculoskeletal No swelling 12/26/2016 Musculoskeletal No muscle weakness 2016 Musculoskeletal No myalgias 12/26/2016 Dermatologic No rash 12/26/2016 Dermatologic No sores 12/26/2016 Dermatologic No scar 12/26/2016 Neurologic No dizziness 12/26/2016 Neurologic No headache 12/26/2016 Neurologic No neck pain 12/26/2016 Neurologic No syncope 12/26/2016 Psychiatric No anxiety 12/26/2016 Psychiatric No depression 12/26/2016 Genitourinary/Nephrology No dysuria 12/26 Genitourinary/Nephrology No urinary urgency 12/26/2016 Genitourinary/Nephrology No urinary incontinence 12/26/2016 Constitutional No recent illness 2016 Constitutional No chills 08/18/2016 Constitutional fatigue 08/18/2016 Constitutional No fever 08/18/2016 Constitutional No insomnia 08/18/2016 Constitutional No malaise 08/18/2016 Eyes No blindness 08/18/2016 Eyes No vision change 08/18/2016 Ears/Nose/Throat/Neck No dental pain 07/2016 Ears/Nose/Throat/Neck No dizziness 2016 Ears/Nose/Throat/Neck No dysphagia 2016 Ears/Nose/Throat/Neck No headache 2016 Ears/Nose/Throat/Neck No hearing loss 07/2016 Ears/Nose/Throat/Neck No nasal allergies 08/18/2016 Ears/Nose/Throat/Neck No sore throat 07/2016 Ears/Nose/Throat/Neck No postnasal drip 08/18/2016 Ears/Nose/Throat/Neck No sinus congestion 08/18/2016 Cardiovascular No chest pain/pressure 07/2016 Cardiovascular dyspnea 08/18/2016 Cardiovascular No edema 08/18/2016 Cardiovascular exercise intolerance 08/18 Cardiovascular fatigue 08/18/2016 Respiratory No chest tightness 2016 Respiratory No cough 08/18/2016 Respiratory dyspnea on exertion 2016 Respiratory No dyspnea 08/18/2016 Respiratory No pedal edema 08/18/2016 Gastrointestinal No abdominal pain 2016 Gastrointestinal No constipation 2016 Gastrointestinal No diarrhea 08/18/2016 Gastrointestinal No gastroesophageal reflux 08/18/2016 Gastrointestinal No nausea 08/18/2016 Gastrointestinal No vomiting 08/18/2016 Musculoskeletal No stiffness 08/18/2016 Musculoskeletal No swelling 08/18/2016 Musculoskeletal No muscle weakness 2016 Musculoskeletal No myalgias 08/18/2016 Dermatologic No rash 08/18/2016 Dermatologic No sores 08/18/2016 Dermatologic No scar 08/18/2016 Neurologic No dizziness 08/18/2016 Neurologic No headache 08/18/2016 Neurologic No neck pain 08/18/2016 Neurologic No syncope 08/18/2016 Psychiatric No anxiety 08/18/2016 Psychiatric No depression 08/18/2016 Constitutional No recent illness 2016 Constitutional No chills 04/28/2016 Constitutional No fatigue 04/28/2016 Constitutional No fever 04/28/2016 Constitutional No insomnia 04/28/2016 Constitutional No malaise 04/28/2016 Eyes No blindness 04/28/2016 Eyes No vision change 04/28/2016 Ears/Nose/Throat/Neck No dental pain 03/2017 Ears/Nose/Throat/Neck No dizziness 2016 Ears/Nose/Throat/Neck No dysphagia 2016 Ears/Nose/Throat/Neck No headache 2016 Ears/Nose/Throat/Neck No hearing loss 03/2017 Ears/Nose/Throat/Neck No nasal allergies 04/28/2016 Ears/Nose/Throat/Neck No sore throat 03/2017 Ears/Nose/Throat/Neck No postnasal drip 04/28/2016 Ears/Nose/Throat/Neck No sinus congestion 04/28/2016 Cardiovascular No chest pain/pressure 03/2017 Cardiovascular No dyspnea 04/28/2016 Cardiovascular No edema 04/28/2016 Cardiovascular No exercise intolerance Cardiovascular No fatigue 04/28/2016 Cardiovascular No near-syncope/dizziness 04/28/2016 Respiratory No chest tightness 2016 Respiratory No cough 04/28/2016 Respiratory No dyspnea 04/28/2016 Respiratory No pedal edema 04/28/2016 Gastrointestinal No abdominal pain 2016 Gastrointestinal No constipation 2016 Gastrointestinal No diarrhea 04/28/2016 Gastrointestinal No gastroesophageal reflux 04/28/2016 Gastrointestinal No nausea 04/28/2016 Gastrointestinal No vomiting 04/28/2016 Genitourinary/Nephrology No dysuria 04/28 Genitourinary/Nephrology No nocturia 03/2017 Genitourinary/Nephrology No urinary incontinence 04/28/2016 Musculoskeletal No stiffness 04/28/2016 Musculoskeletal No swelling 04/28/2016 Musculoskeletal No muscle weakness 2016 Musculoskeletal No myalgias 04/28/2016 Dermatologic No rash 04/28/2016 Dermatologic No sores 04/28/2016 Dermatologic No scar 04/28/2016 Neurologic No dizziness 04/28/2016 Neurologic No headache 04/28/2016 Neurologic No neck pain 04/28/2016 Neurologic No syncope 04/28/2016 Psychiatric No anxiety 04/28/2016 Psychiatric No depression 04/28/2016 Constitutional No recent illness 2015 Constitutional No chills 12/30/2015 Constitutional fatigue 12/30/2015 Constitutional No fever 12/30/2015 Constitutional No insomnia 12/30/2015 Constitutional No malaise 12/30/2015 Eyes No blindness 12/30/2015 Eyes No vision change 12/30/2015 Ears/Nose/Throat/Neck No dental pain Ears/Nose/Throat/Neck No dizziness 2015 Ears/Nose/Throat/Neck No dysphagia 2015 Ears/Nose/Throat/Neck No headache 2015 Ears/Nose/Throat/Neck No hearing loss Ears/Nose/Throat/Neck No nasal allergies 12/30/2015 Ears/Nose/Throat/Neck No sore throat Ears/Nose/Throat/Neck No postnasal drip 12/30/2015 Ears/Nose/Throat/Neck No sinus congestion 12/30/2015 Cardiovascular No chest pain/pressure Cardiovascular dyspnea 12/30/2015 Cardiovascular No edema 12/30/2015 Cardiovascular exercise intolerance 12/29 Cardiovascular fatigue 12/30/2015 Respiratory No chest tightness 2015 Respiratory No cough 12/30/2015 Respiratory dyspnea on exertion 2015 Respiratory No dyspnea 12/30/2015 Respiratory No pedal edema 12/30/2015 Gastrointestinal No abdominal pain 2015 Gastrointestinal No constipation 2015 Gastrointestinal No diarrhea 12/30/2015 Gastrointestinal No gastroesophageal reflux 12/30/2015 Gastrointestinal No nausea 12/30/2015 Gastrointestinal No vomiting 12/30/2015 Musculoskeletal No stiffness 12/30/2015 Musculoskeletal No swelling 12/30/2015 Musculoskeletal No muscle weakness 2015 Musculoskeletal No myalgias 12/30/2015 Dermatologic No rash 12/30/2015 Dermatologic No sores 12/30/2015 Dermatologic No scar 12/30/2015 Neurologic No dizziness 12/30/2015 Neurologic No headache 12/30/2015 Neurologic No neck pain 12/30/2015 Neurologic No syncope 12/30/2015 Psychiatric No anxiety 12/30/2015 Psychiatric No depression 12/30/2015 Constitutional No recent illness 2015 Constitutional No chills 12/09/2015 Constitutional fatigue 12/09/2015 Constitutional No fever 12/09/2015 Constitutional No insomnia 12/09/2015 Constitutional No malaise 12/09/2015 Eyes No blindness 12/09/2015 Eyes No vision change 12/09/2015 Ears/Nose/Throat/Neck No dental pain Ears/Nose/Throat/Neck No dizziness 2015 Ears/Nose/Throat/Neck No dysphagia 2015 Ears/Nose/Throat/Neck No headache 2015 Ears/Nose/Throat/Neck No hearing loss Ears/Nose/Throat/Neck No nasal allergies 12/09/2015 Ears/Nose/Throat/Neck No sore throat Ears/Nose/Throat/Neck No postnasal drip 12/09/2015 Ears/Nose/Throat/Neck No sinus congestion 12/09/2015 Cardiovascular No chest pain/pressure Cardiovascular dyspnea 12/09/2015 Cardiovascular No edema 12/09/2015 Cardiovascular exercise intolerance 12/08 Cardiovascular fatigue 12/09/2015 Respiratory No chest tightness 2015 Respiratory No cough 12/09/2015 Respiratory No dyspnea 12/09/2015 Respiratory No pedal edema 12/09/2015 Gastrointestinal No abdominal pain 2015 Gastrointestinal No constipation 2015 Gastrointestinal No diarrhea 12/09/2015 Gastrointestinal No gastroesophageal reflux 12/09/2015 Gastrointestinal No nausea 12/09/2015 Gastrointestinal No vomiting 12/09/2015 Musculoskeletal No stiffness 12/09/2015 Musculoskeletal No swelling 12/09/2015 Musculoskeletal No muscle weakness 2015 Musculoskeletal No myalgias 12/09/2015 Dermatologic No rash 12/09/2015 Dermatologic No sores 12/09/2015 Dermatologic No scar 12/09/2015 Neurologic No dizziness 12/09/2015 Neurologic No headache 12/09/2015 Neurologic No neck pain 12/09/2015 Neurologic No syncope 12/09/2015 Psychiatric No anxiety 12/09/2015 Psychiatric No depression 12/09/2015 Respiratory dyspnea on exertion 2015 Constitutional No recent illness 2015 Constitutional No chills 08/05/2015 Constitutional No fatigue 08/05/2015 Constitutional No fever 08/05/2015 Constitutional No insomnia 08/05/2015 Constitutional No malaise 08/05/2015 Eyes No blindness 08/05/2015 Eyes No vision change 08/05/2015 Ears/Nose/Throat/Neck No dental pain Ears/Nose/Throat/Neck No dizziness 2015 Ears/Nose/Throat/Neck No dysphagia 2015 Ears/Nose/Throat/Neck No headache 2015 Ears/Nose/Throat/Neck No hearing loss Ears/Nose/Throat/Neck No nasal allergies 08/05/2015 Ears/Nose/Throat/Neck No sore throat Ears/Nose/Throat/Neck No postnasal drip 08/05/2015 Ears/Nose/Throat/Neck No sinus congestion 08/05/2015 Cardiovascular No chest pain/pressure Cardiovascular No dyspnea 08/05/2015 Cardiovascular No edema 08/05/2015 Cardiovascular No exercise intolerance Cardiovascular No fatigue 08/05/2015 Cardiovascular No near-syncope/dizziness 08/05/2015 Respiratory No chest tightness 2015 Respiratory No cough 08/05/2015 Respiratory No dyspnea 08/05/2015 Respiratory No pedal edema 08/05/2015 Gastrointestinal No abdominal pain 2015 Gastrointestinal No constipation 2015 Gastrointestinal No diarrhea 08/05/2015 Gastrointestinal No gastroesophageal reflux 08/05/2015 Gastrointestinal No nausea 08/05/2015 Gastrointestinal No vomiting 08/05/2015 Genitourinary/Nephrology No dysuria 08/04 Genitourinary/Nephrology No nocturia Genitourinary/Nephrology No urinary incontinence 08/05/2015 Musculoskeletal No stiffness 08/05/2015 Musculoskeletal No swelling 08/05/2015 Musculoskeletal No muscle weakness 2015 Musculoskeletal No myalgias 08/05/2015 Dermatologic No rash 08/05/2015 Dermatologic No sores 08/05/2015 Dermatologic No scar 08/05/2015 Neurologic No dizziness 08/05/2015 Neurologic No headache 08/05/2015 Neurologic No neck pain 08/05/2015 Neurologic No syncope 08/05/2015 Psychiatric No anxiety 08/05/2015 Psychiatric No depression 08/05/2015 Constitutional No recent illness 2014 Constitutional No chills 10/22/2014 Constitutional No fatigue 10/22/2014 Constitutional No fever 10/22/2014 Constitutional No insomnia 10/22/2014 Constitutional No malaise 10/22/2014 Eyes No blindness 10/22/2014 Eyes No vision change 10/22/2014 Ears/Nose/Throat/Neck No dental pain 11/2014 Ears/Nose/Throat/Neck No dizziness 2014 Ears/Nose/Throat/Neck No dysphagia 2014 Ears/Nose/Throat/Neck No headache 2014 Ears/Nose/Throat/Neck No hearing loss 11/2014 Ears/Nose/Throat/Neck No nasal allergies 10/22/2014 Ears/Nose/Throat/Neck No sore throat 11/2014 Ears/Nose/Throat/Neck No postnasal drip 10/22/2014 Ears/Nose/Throat/Neck No sinus congestion 10/22/2014 Cardiovascular No chest pain/pressure 11/2014 Cardiovascular No dyspnea 10/22/2014 Cardiovascular No edema 10/22/2014 Cardiovascular No exercise intolerance Cardiovascular No fatigue 10/22/2014 Cardiovascular No near-syncope/dizziness 10/22/2014 Respiratory No chest tightness 2014 Respiratory No cough 10/22/2014 Respiratory No dyspnea 10/22/2014 Respiratory No pedal edema 10/22/2014 Gastrointestinal No abdominal pain 2014 Gastrointestinal No constipation 2014 Gastrointestinal No diarrhea 10/22/2014 Gastrointestinal No gastroesophageal reflux 10/22/2014 Gastrointestinal No nausea 10/22/2014 Gastrointestinal No vomiting 10/22/2014 Genitourinary/Nephrology No dysuria 10/22 Genitourinary/Nephrology No nocturia 11/2014 Genitourinary/Nephrology No urinary incontinence 10/22/2014 Musculoskeletal No stiffness 10/22/2014 Musculoskeletal No swelling 10/22/2014 Musculoskeletal No muscle weakness 2014 Musculoskeletal No myalgias 10/22/2014 Dermatologic No rash 10/22/2014 Dermatologic No sores 10/22/2014 Dermatologic No scar 10/22/2014 Neurologic No dizziness 10/22/2014 Neurologic No headache 10/22/2014 Neurologic No neck pain 10/22/2014 Neurologic No syncope 10/22/2014 Psychiatric No anxiety 10/22/2014 Psychiatric No depression 10/22/2014 Physical Exam Exam Name System Name Item Name Status Result Effective Dates Notes Full Exam - General 1994 Constitutional general appearance Development: well developed 05/29/2017 None Full Exam - General 1994 Constitutional general appearance Development: appears stated age 0205/29/2017 None Full Exam - General 1994 Constitutional general appearance Hygiene/Attention to Grooming: good hygiene 05/29/2017 None Full Exam - General 1994 Eyes conjunctiva /eyelids Overall: conjunctiva clear 05/29/2017 None Full Exam - General 1994 Eyes conjunctiva /eyelids Overall: cornea clear 05/29/2017 None Full Exam - General 1994 Eyes conjunctiva /eyelids Overall: eyelids normal 05/29/2017 None Full Exam - General 1994 Eyes pupils and irises Overall: pupils equal, round, reactive to light and accomodation 05/29/2017 None Full Exam - General 1994 Ears/Nose/Throat otoscopic exam Overall: external auditory canals clear 05/29/2017 None Full Exam - General 1994 Ears/Nose/Throat otoscopic exam Overall: tympanic membranes clear 05/29/2017 None Full Exam - General 1994 Ears/Nose/Throat lips/teeth/gingiva Overall: benign lips 05/29/2017 None Full Exam - General 1994 Ears/Nose/Throat lips/teeth/gingiva Overall: normal dentition 05/29/2017 None Full Exam - General 1994 Ears/Nose/Throat oral cavity/pharynx/larynx Overall: oral mucosa clear 05/29/2017 None Full Exam - General 1994 Ears/Nose/Throat oral cavity/pharynx/larynx Overall: oropharyngeal mucosa clear 05/29/2017 None Full Exam - General 1994 Ears/Nose/Throat oral cavity/pharynx/larynx Overall: hypopharynx benign 05/29/2017 None Full Exam - General 1994 Ears/Nose/Throat oral cavity/pharynx/larynx Overall: no masses 05/29/2017 None Full Exam - General 1994 Respiratory auscultation Overall: breath sounds clear bilaterally 05/29/2017 None Full Exam - General 1994 Respiratory respiratory effort/rhythm Overall: no retractions 05/29/2017 None Full Exam - General 1994 Respiratory respiratory effort/rhythm Overall: normal rate 05/29/2017 None Full Exam - General 1994 Cardiovascular extremities Overall: no clubbing 05/29/2017 None Full Exam - General 1994 Cardiovascular auscultation of heart Overall: regular rate 05/29/2017 None Full Exam - General 1994 Cardiovascular auscultation of heart Overall: normal heart sounds 05/29/2017 None Full Exam - General 1994 Abdomen abdominal exam Overall: no tenderness 05/29/2017 None Full Exam - General 1994 Abdomen abdominal exam Overall: normal bowel sounds 05/29/2017 None Full Exam - General 1994 Musculoskeletal spine, ribs and pelvis Overall: spine benign 05/29/2017 None Full Exam - General 1994 Musculoskeletal spine, ribs and pelvis Overall: sacroiliac joint benign 05/29/2017 None Full Exam - General 1994 Musculoskeletal spine, ribs and pelvis Overall: good posture 05/29/2017 None Full Exam - General 1994 Musculoskeletal head and neck Overall: head atraumatic 05/29/2017 None Full Exam - General 1994 Musculoskeletal head and neck Overall: cervical spine benign 05/29/2017 None Full Exam - General 1994 Neurologic deep tendon reflexes Overall: deep tendon reflexes intact 05/29/2017 None Full Exam - General 1994 Neurologic cranial nerves Overall: crainial nerves 2 - 12 grossly intact 05/29/2017 None Full Exam - General 1994 Psychiatric orientation/consciousness Overall: oriented to person, place and time 05/29/2017 None Full Exam - General 1994 Psychiatric mood and affect Overall: normal mood and affect 05/29/2017 None Full Exam - General 1994 Constitutional general appearance Development: well developed 01/16/2017 None Full Exam - General 1994 Constitutional general appearance Development: appears stated age 1001/16/2017 None Full Exam - General 1994 Constitutional general appearance Hygiene/Attention to Grooming: good hygiene 01/16/2017 None Full Exam - General 1994 Eyes conjunctiva /eyelids Overall: conjunctiva clear 01/16/2017 None Full Exam - General 1994 Eyes conjunctiva /eyelids Overall: cornea clear 01/16/2017 None Full Exam - General 1994 Eyes conjunctiva /eyelids Overall: eyelids normal 01/16/2017 None Full Exam - General 1994 Eyes pupils and irises Overall: pupils equal, round, reactive to light and accomodation 01/16/2017 None Full Exam - General 1994 Ears/Nose/Throat otoscopic exam Overall: external auditory canals clear 01/16/2017 None Full Exam - General 1994 Ears/Nose/Throat otoscopic exam Overall: tympanic membranes clear 01/16/2017 None Full Exam - General 1994 Ears/Nose/Throat lips/teeth/gingiva Overall: benign lips 01/16/2017 None Full Exam - General 1994 Ears/Nose/Throat lips/teeth/gingiva Overall: normal dentition 01/16/2017 None Full Exam - General 1994 Ears/Nose/Throat oral cavity/pharynx/larynx Overall: oral mucosa clear 01/16/2017 None Full Exam - General 1994 Ears/Nose/Throat oral cavity/pharynx/larynx Overall: oropharyngeal mucosa clear 01/16/2017 None Full Exam - General 1994 Ears/Nose/Throat oral cavity/pharynx/larynx Overall: hypopharynx benign 01/16/2017 None Full Exam - General 1994 Ears/Nose/Throat oral cavity/pharynx/larynx Overall: no masses 01/16/2017 None Full Exam - General 1994 Respiratory auscultation Overall: breath sounds clear bilaterally 01/16/2017 None Full Exam - General 1994 Respiratory respiratory effort/rhythm Overall: no retractions 01/16/2017 None Full Exam - General 1994 Respiratory respiratory effort/rhythm Overall: normal rate 01/16/2017 None Full Exam - General 1994 Cardiovascular extremities Overall: no clubbing 01/16/2017 None Full Exam - General 1994 Cardiovascular auscultation of heart Overall: regular rate 01/16/2017 None Full Exam - General 1994 Cardiovascular auscultation of heart Overall: normal heart sounds 01/16/2017 None Full Exam - General 1994 Musculoskeletal spine, ribs and pelvis Overall: good posture 01/16/2017 None Full Exam - General 1994 Musculoskeletal head and neck Overall: head atraumatic 01/16/2017 None Full Exam - General 1994 Musculoskeletal head and neck Overall: cervical spine benign 01/16/2017 None Full Exam - General 1994 Psychiatric orientation/consciousness Overall: oriented to person, place and time 01/16/2017 None Full Exam - General 1994 Psychiatric mood and affect Overall: normal mood and affect 01/16/2017 None Full Exam - General 1994 Constitutional general appearance Development: well developed 12/26/2016 None Full Exam - General 1994 Constitutional general appearance Development: appears stated age 0912/26/2016 None Full Exam - General 1994 Constitutional general appearance Hygiene/Attention to Grooming: good hygiene 12/26/2016 None Full Exam - General 1994 Eyes conjunctiva /eyelids Overall: conjunctiva clear 12/26/2016 None Full Exam - General 1994 Eyes conjunctiva /eyelids Overall: cornea clear 12/26/2016 None Full Exam - General 1994 Eyes conjunctiva /eyelids Overall: eyelids normal 12/26/2016 None Full Exam - General 1994 Eyes pupils and irises Overall: pupils equal, round, reactive to light and accomodation 12/26/2016 None Full Exam - General 1994 Ears/Nose/Throat otoscopic exam Overall: external auditory canals clear 12/26/2016 None Full Exam - General 1994 Ears/Nose/Throat otoscopic exam Overall: tympanic membranes clear 12/26/2016 None Full Exam - General 1994 Ears/Nose/Throat lips/teeth/gingiva Overall: benign lips 12/26/2016 None Full Exam - General 1994 Ears/Nose/Throat lips/teeth/gingiva Overall: normal dentition 12/26/2016 None Full Exam - General 1994 Ears/Nose/Throat oral cavity/pharynx/larynx Overall: oral mucosa clear 12/26/2016 None Full Exam - General 1994 Ears/Nose/Throat oral cavity/pharynx/larynx Overall: oropharyngeal mucosa clear 12/26/2016 None Full Exam - General 1994 Ears/Nose/Throat oral cavity/pharynx/larynx Overall: hypopharynx benign 12/26/2016 None Full Exam - General 1994 Ears/Nose/Throat oral cavity/pharynx/larynx Overall: no masses 12/26/2016 None Full Exam - General 1994 Respiratory auscultation Overall: breath sounds clear bilaterally 12/26/2016 None Full Exam - General 1994 Respiratory respiratory effort/rhythm Overall: no retractions 12/26/2016 None Full Exam - General 1994 Respiratory respiratory effort/rhythm Overall: normal rate 12/26/2016 None Full Exam - General 1994 Cardiovascular extremities Overall: no clubbing 12/26/2016 None Full Exam - General 1994 Cardiovascular auscultation of heart Overall: regular rate 12/26/2016 None Full Exam - General 1994 Cardiovascular auscultation of heart Overall: normal heart sounds 12/26/2016 None Full Exam - General 1994 Abdomen abdominal exam Overall: no tenderness 12/26/2016 None Full Exam - General 1994 Abdomen abdominal exam Overall: normal bowel sounds 12/26/2016 None Full Exam - General 1994 Musculoskeletal spine, ribs and pelvis Overall: spine benign 12/26/2016 None Full Exam - General 1994 Musculoskeletal spine, ribs and pelvis Overall: sacroiliac joint benign 12/26/2016 None Full Exam - General 1994 Musculoskeletal spine, ribs and pelvis Overall: good posture 12/26/2016 None Full Exam - General 1994 Musculoskeletal head and neck Overall: head atraumatic 12/26/2016 None Full Exam - General 1994 Musculoskeletal head and neck Overall: cervical spine benign 12/26/2016 None Full Exam - General 1994 Neurologic deep tendon reflexes Overall: deep tendon reflexes intact 12/26/2016 None Full Exam - General 1994 Neurologic cranial nerves Overall: crainial nerves 2 - 12 grossly intact 12/26/2016 None Full Exam - General 1994 Psychiatric orientation/consciousness Overall: oriented to person, place and time 12/26/2016 None Full Exam - General 1994 Psychiatric mood and affect Overall: normal mood and affect 12/26/2016 None Full Exam - General 1994 Constitutional general appearance Development: well developed 08/18/2016 None Full Exam - General 1994 Constitutional general appearance Development: appears stated age 0508/18/2016 None Full Exam - General 1994 Constitutional general appearance Hygiene/Attention to Grooming: good hygiene 08/18/2016 None Full Exam - General 1994 Eyes conjunctiva /eyelids Overall: conjunctiva clear 08/18/2016 None Full Exam - General 1994 Eyes conjunctiva /eyelids Overall: cornea clear 08/18/2016 None Full Exam - General 1994 Eyes conjunctiva /eyelids Overall: eyelids normal 08/18/2016 None Full Exam - General 1994 Eyes pupils and irises Overall: pupils equal, round, reactive to light and accomodation 08/18/2016 None Full Exam - General 1994 Ears/Nose/Throat otoscopic exam Overall: external auditory canals clear 08/18/2016 None Full Exam - General 1994 Ears/Nose/Throat otoscopic exam Overall: tympanic membranes clear 08/18/2016 None Full Exam - General 1994 Ears/Nose/Throat lips/teeth/gingiva Overall: benign lips 08/18/2016 None Full Exam - General 1994 Ears/Nose/Throat lips/teeth/gingiva Overall: normal dentition 08/18/2016 None Full Exam - General 1994 Ears/Nose/Throat oral cavity/pharynx/larynx Overall: oral mucosa clear 08/18/2016 None Full Exam - General 1994 Ears/Nose/Throat oral cavity/pharynx/larynx Overall: oropharyngeal mucosa clear 08/18/2016 None Full Exam - General 1994 Ears/Nose/Throat oral cavity/pharynx/larynx Overall: hypopharynx benign 08/18/2016 None Full Exam - General 1994 Ears/Nose/Throat oral cavity/pharynx/larynx Overall: no masses 08/18/2016 None Full Exam - General 1994 Respiratory auscultation Overall: breath sounds clear bilaterally 08/18/2016 None Full Exam - General 1994 Respiratory respiratory effort/rhythm Overall: no retractions 08/18/2016 None Full Exam - General 1994 Respiratory respiratory effort/rhythm Overall: normal rate 08/18/2016 None Full Exam - General 1994 Cardiovascular extremities Overall: no clubbing 08/18/2016 None Full Exam - General 1994 Cardiovascular auscultation of heart Overall: regular rate 08/18/2016 None Full Exam - General 1994 Cardiovascular auscultation of heart Overall: normal heart sounds 08/18/2016 None Full Exam - General 1994 Abdomen abdominal exam Overall: no tenderness 08/18/2016 None Full Exam - General 1994 Abdomen abdominal exam Overall: normal bowel sounds 08/18/2016 None Full Exam - General 1994 Musculoskeletal spine, ribs and pelvis Overall: spine benign 08/18/2016 None Full Exam - General 1994 Musculoskeletal spine, ribs and pelvis Overall: sacroiliac joint benign 08/18/2016 None Full Exam - General 1994 Musculoskeletal spine, ribs and pelvis Overall: good posture 08/18/2016 None Full Exam - General 1994 Musculoskeletal head and neck Overall: head atraumatic 08/18/2016 None Full Exam - General 1994 Musculoskeletal head and neck Overall: cervical spine benign 08/18/2016 None Full Exam - General 1994 Integument inspection of skin Rash/Lesions: patch 08/18/2016 on back, buttocks, upper posterior thighs Full Exam - General 1994 Neurologic deep tendon reflexes Overall: deep tendon reflexes intact 08/18/2016 None Full Exam - General 1994 Neurologic cranial nerves Overall: crainial nerves 2 - 12 grossly intact 08/18/2016 None Full Exam - General 1994 Psychiatric orientation/consciousness Overall: oriented to person, place and time 08/18/2016 None Full Exam - General 1994 Psychiatric mood and affect Overall: normal mood and affect 08/18/2016 None Full Exam - General 1994 Constitutional general appearance Development: well developed 04/28/2016 None Full Exam - General 1994 Constitutional general appearance Development: appears stated age 0104/28/2016 None Full Exam - General 1994 Constitutional general appearance Hygiene/Attention to Grooming: good hygiene 04/28/2016 None Full Exam - General 1994 Eyes conjunctiva /eyelids Overall: conjunctiva clear 04/28/2016 None Full Exam - General 1994 Eyes conjunctiva /eyelids Overall: cornea clear 04/28/2016 None Full Exam - General 1994 Eyes conjunctiva /eyelids Overall: eyelids normal 04/28/2016 None Full Exam - General 1994 Eyes pupils and irises Overall: pupils equal, round, reactive to light and accomodation 04/28/2016 None Full Exam - General 1994 Ears/Nose/Throat otoscopic exam Overall: external auditory canals clear 04/28/2016 None Full Exam - General 1994 Ears/Nose/Throat otoscopic exam Overall: tympanic membranes clear 04/28/2016 None Full Exam - General 1994 Ears/Nose/Throat lips/teeth/gingiva Overall: benign lips 04/28/2016 None Full Exam - General 1994 Ears/Nose/Throat lips/teeth/gingiva Overall: normal dentition 04/28/2016 None Full Exam - General 1994 Ears/Nose/Throat oral cavity/pharynx/larynx Overall: oral mucosa clear 04/28/2016 None Full Exam - General 1994 Ears/Nose/Throat oral cavity/pharynx/larynx Overall: oropharyngeal mucosa clear 04/28/2016 None Full Exam - General 1994 Ears/Nose/Throat oral cavity/pharynx/larynx Overall: hypopharynx benign 04/28/2016 None Full Exam - General 1994 Ears/Nose/Throat oral cavity/pharynx/larynx Overall: no masses 04/28/2016 None Full Exam - General 1994 Respiratory auscultation Overall: breath sounds clear bilaterally 04/28/2016 None Full Exam - General 1994 Respiratory respiratory effort/rhythm Overall: no retractions 04/28/2016 None Full Exam - General 1994 Respiratory respiratory effort/rhythm Overall: normal rate 04/28/2016 None Full Exam - General 1994 Cardiovascular extremities Overall: no clubbing 04/28/2016 None Full Exam - General 1994 Cardiovascular auscultation of heart Overall: regular rate 04/28/2016 None Full Exam - General 1994 Cardiovascular auscultation of heart Overall: normal heart sounds 04/28/2016 None Full Exam - General 1994 Abdomen abdominal exam Overall: no tenderness 04/28/2016 None Full Exam - General 1994 Abdomen abdominal exam Overall: normal bowel sounds 04/28/2016 None Full Exam - General 1994 Lymphatic neck nodes Overall: anterior cervical chain benign 04/28/2016 None Full Exam - General 1994 Lymphatic neck nodes Overall: posterior cervical chain benign 04/28/2016 None Full Exam - General 1994 Musculoskeletal head and neck Overall: head atraumatic 04/28/2016 None Full Exam - General 1994 Musculoskeletal head and neck Overall: cervical spine benign 04/28/2016 None Full Exam - General 1994 Integument inspection of skin Overall: few scattered moles, no gross abnormalities 04/28/2016 None Full Exam - General 1994 Neurologic deep tendon reflexes Overall: deep tendon reflexes intact 04/28/2016 None Full Exam - General 1994 Neurologic cranial nerves Overall: crainial nerves 2 - 12 grossly intact 04/28/2016 None Full Exam - General 1994 Psychiatric orientation/consciousness Overall: oriented to person, place and time 04/28/2016 None Full Exam - General 1994 Psychiatric mood and affect Overall: normal mood and affect 04/28/2016 None Full Exam - General 1994 Musculoskeletal spine, ribs and pelvis Overall: good posture 04/28/2016 None Full Exam - General 1994 Constitutional general appearance Development: well developed 12/30/2015 None Full Exam - General 1994 Constitutional general appearance Development: appears stated age 0912/30/2015 None Full Exam - General 1994 Constitutional general appearance Hygiene/Attention to Grooming: good hygiene 12/30/2015 None Full Exam - General 1994 Eyes conjunctiva /eyelids Overall: conjunctiva clear 12/30/2015 None Full Exam - General 1994 Eyes conjunctiva /eyelids Overall: cornea clear 12/30/2015 None Full Exam - General 1994 Eyes conjunctiva /eyelids Overall: eyelids normal 12/30/2015 None Full Exam - General 1994 Eyes pupils and irises Overall: pupils equal, round, reactive to light and accomodation 12/30/2015 None Full Exam - General 1994 Ears/Nose/Throat otoscopic exam Overall: external auditory canals clear 12/30/2015 None Full Exam - General 1994 Ears/Nose/Throat otoscopic exam Overall: tympanic membranes clear 12/30/2015 None Full Exam - General 1994 Ears/Nose/Throat lips/teeth/gingiva Overall: benign lips 12/30/2015 None Full Exam - General 1994 Ears/Nose/Throat lips/teeth/gingiva Overall: normal dentition 12/30/2015 None Full Exam - General 1994 Ears/Nose/Throat oral cavity/pharynx/larynx Overall: oral mucosa clear 12/30/2015 None Full Exam - General 1994 Ears/Nose/Throat oral cavity/pharynx/larynx Overall: oropharyngeal mucosa clear 12/30/2015 None Full Exam - General 1994 Ears/Nose/Throat oral cavity/pharynx/larynx Overall: hypopharynx benign 12/30/2015 None Full Exam - General 1994 Ears/Nose/Throat oral cavity/pharynx/larynx Overall: no masses 12/30/2015 None Full Exam - General 1994 Respiratory auscultation Overall: breath sounds clear bilaterally 12/30/2015 None Full Exam - General 1994 Respiratory respiratory effort/rhythm Overall: no retractions 12/30/2015 None Full Exam - General 1994 Respiratory respiratory effort/rhythm Overall: normal rate 12/30/2015 None Full Exam - General 1994 Cardiovascular extremities Overall: no clubbing 12/30/2015 None Full Exam - General 1994 Cardiovascular auscultation of heart Overall: regular rate 12/30/2015 None Full Exam - General 1994 Cardiovascular auscultation of heart Overall: normal heart sounds 12/30/2015 None Full Exam - General 1994 Abdomen abdominal exam Overall: no tenderness 12/30/2015 None Full Exam - General 1994 Abdomen abdominal exam Overall: normal bowel sounds 12/30/2015 None Full Exam - General 1994 Musculoskeletal spine, ribs and pelvis Overall: spine benign 12/30/2015 None Full Exam - General 1994 Musculoskeletal spine, ribs and pelvis Overall: sacroiliac joint benign 12/30/2015 None Full Exam - General 1994 Musculoskeletal spine, ribs and pelvis Overall: good posture 12/30/2015 None Full Exam - General 1994 Musculoskeletal head and neck Overall: head atraumatic 12/30/2015 None Full Exam - General 1994 Musculoskeletal head and neck Overall: cervical spine benign 12/30/2015 None Full Exam - General 1994 Integument inspection of skin Rash/Lesions: patch 12/30/2015 on back, buttocks, upper posterior thighs Full Exam - General 1994 Neurologic deep tendon reflexes Overall: deep tendon reflexes intact 12/30/2015 None Full Exam - General 1994 Neurologic cranial nerves Overall: crainial nerves 2 - 12 grossly intact 12/30/2015 None Full Exam - General 1994 Psychiatric orientation/consciousness Overall: oriented to person, place and time 12/30/2015 None Full Exam - General 1994 Psychiatric mood and affect Overall: normal mood and affect 12/30/2015 None Full Exam - General 1994 Constitutional general appearance Development: well developed 12/09/2015 None Full Exam - General 1994 Constitutional general appearance Development: appears stated age 0812/09/2015 None Full Exam - General 1994 Constitutional general appearance Hygiene/Attention to Grooming: good hygiene 12/09/2015 None Full Exam - General 1994 Eyes conjunctiva /eyelids Overall: conjunctiva clear 12/09/2015 None Full Exam - General 1994 Eyes conjunctiva /eyelids Overall: cornea clear 12/09/2015 None Full Exam - General 1994 Eyes conjunctiva /eyelids Overall: eyelids normal 12/09/2015 None Full Exam - General 1994 Eyes pupils and irises Overall: pupils equal, round, reactive to light and accomodation 12/09/2015 None Full Exam - General 1994 Ears/Nose/Throat otoscopic exam Overall: external auditory canals clear 12/09/2015 None Full Exam - General 1994 Ears/Nose/Throat otoscopic exam Overall: tympanic membranes clear 12/09/2015 None Full Exam - General 1994 Ears/Nose/Throat lips/teeth/gingiva Overall: benign lips 12/09/2015 None Full Exam - General 1994 Ears/Nose/Throat lips/teeth/gingiva Overall: normal dentition 12/09/2015 None Full Exam - General 1994 Ears/Nose/Throat oral cavity/pharynx/larynx Overall: oral mucosa clear 12/09/2015 None Full Exam - General 1994 Ears/Nose/Throat oral cavity/pharynx/larynx Overall: oropharyngeal mucosa clear 12/09/2015 None Full Exam - General 1994 Ears/Nose/Throat oral cavity/pharynx/larynx Overall: hypopharynx benign 12/09/2015 None Full Exam - General 1994 Ears/Nose/Throat oral cavity/pharynx/larynx Overall: no masses 12/09/2015 None Full Exam - General 1994 Respiratory auscultation Overall: breath sounds clear bilaterally 12/09/2015 None Full Exam - General 1994 Respiratory respiratory effort/rhythm Overall: no retractions 12/09/2015 None Full Exam - General 1994 Respiratory respiratory effort/rhythm Overall: normal rate 12/09/2015 None Full Exam - General 1994 Cardiovascular extremities Overall: no clubbing 12/09/2015 None Full Exam - General 1994 Cardiovascular auscultation of heart Overall: regular rate 12/09/2015 None Full Exam - General 1994 Cardiovascular auscultation of heart Overall: normal heart sounds 12/09/2015 None Full Exam - General 1994 Abdomen abdominal exam Overall: no tenderness 12/09/2015 None Full Exam - General 1994 Abdomen abdominal exam Overall: normal bowel sounds 12/09/2015 None Full Exam - General 1994 Musculoskeletal spine, ribs and pelvis Overall: spine benign 12/09/2015 None Full Exam - General 1994 Musculoskeletal spine, ribs and pelvis Overall: sacroiliac joint benign 12/09/2015 None Full Exam - General 1994 Musculoskeletal spine, ribs and pelvis Overall: good posture 12/09/2015 None Full Exam - General 1994 Musculoskeletal head and neck Overall: head atraumatic 12/09/2015 None Full Exam - General 1994 Musculoskeletal head and neck Overall: cervical spine benign 12/09/2015 None Full Exam - General 1994 Neurologic deep tendon reflexes Overall: deep tendon reflexes intact 12/09/2015 None Full Exam - General 1994 Neurologic cranial nerves Overall: crainial nerves 2 - 12 grossly intact 12/09/2015 None Full Exam - General 1994 Psychiatric orientation/consciousness Overall: oriented to person, place and time 12/09/2015 None Full Exam - General 1994 Psychiatric mood and affect Overall: normal mood and affect 12/09/2015 None Full Exam - General 1994 Integument inspection of skin Rash/Lesions: patch 12/09/2015 on back, buttocks, upper posterior thighs Full Exam - General 1994 Constitutional general appearance Development: well developed 08/05/2015 None Full Exam - General 1994 Constitutional general appearance Development: appears stated age 0408/05/2015 None Full Exam - General 1994 Constitutional general appearance Hygiene/Attention to Grooming: good hygiene 08/05/2015 None Full Exam - General 1994 Eyes conjunctiva /eyelids Overall: conjunctiva clear 08/05/2015 None Full Exam - General 1994 Eyes conjunctiva /eyelids Overall: cornea clear 08/05/2015 None Full Exam - General 1994 Eyes conjunctiva /eyelids Overall: eyelids normal 08/05/2015 None Full Exam - General 1994 Eyes pupils and irises Overall: pupils equal, round, reactive to light and accomodation 08/05/2015 None Full Exam - General 1994 Ears/Nose/Throat otoscopic exam Overall: external auditory canals clear 08/05/2015 None Full Exam - General 1994 Ears/Nose/Throat otoscopic exam Overall: tympanic membranes clear 08/05/2015 None Full Exam - General 1994 Ears/Nose/Throat lips/teeth/gingiva Overall: benign lips 08/05/2015 None Full Exam - General 1994 Ears/Nose/Throat lips/teeth/gingiva Overall: normal dentition 08/05/2015 None Full Exam - General 1994 Ears/Nose/Throat oral cavity/pharynx/larynx Overall: oral mucosa clear 08/05/2015 None Full Exam - General 1994 Ears/Nose/Throat oral cavity/pharynx/larynx Overall: oropharyngeal mucosa clear 08/05/2015 None Full Exam - General 1994 Ears/Nose/Throat oral cavity/pharynx/larynx Overall: hypopharynx benign 08/05/2015 None Full Exam - General 1994 Ears/Nose/Throat oral cavity/pharynx/larynx Overall: no masses 08/05/2015 None Full Exam - General 1994 Respiratory auscultation Overall: breath sounds clear bilaterally 08/05/2015 None Full Exam - General 1994 Respiratory respiratory effort/rhythm Overall: no retractions 08/05/2015 None Full Exam - General 1994 Respiratory respiratory effort/rhythm Overall: normal rate 08/05/2015 None Full Exam - General 1994 Cardiovascular extremities Overall: no clubbing 08/05/2015 None Full Exam - General 1994 Cardiovascular auscultation of heart Overall: regular rate 08/05/2015 None Full Exam - General 1994 Cardiovascular auscultation of heart Overall: normal heart sounds 08/05/2015 None Full Exam - General 1994 Abdomen abdominal exam Overall: no tenderness 08/05/2015 None Full Exam - General 1994 Abdomen abdominal exam Overall: normal bowel sounds 08/05/2015 None Full Exam - General 1994 Lymphatic neck nodes Overall: anterior cervical chain benign 08/05/2015 None Full Exam - General 1994 Lymphatic neck nodes Overall: posterior cervical chain benign 08/05/2015 None Full Exam - General 1994 Musculoskeletal spine, ribs and pelvis Overall: spine benign 08/05/2015 None Full Exam - General 1994 Musculoskeletal spine, ribs and pelvis Overall: sacroiliac joint benign 08/05/2015 None Full Exam - General 1994 Musculoskeletal spine, ribs and pelvis Overall: good posture 08/05/2015 None Full Exam - General 1994 Musculoskeletal head and neck Overall: head atraumatic 08/05/2015 None Full Exam - General 1994 Musculoskeletal head and neck Overall: cervical spine benign 08/05/2015 None Full Exam - General 1994 Integument inspection of skin Overall: few scattered moles, no gross abnormalities 08/05/2015 None Full Exam - General 1994 Neurologic deep tendon reflexes Overall: deep tendon reflexes intact 08/05/2015 None Full Exam - General 1994 Neurologic cranial nerves Overall: crainial nerves 2 - 12 grossly intact 08/05/2015 None Full Exam - General 1994 Psychiatric orientation/consciousness Overall: oriented to person, place and time 08/05/2015 None Full Exam - General 1994 Psychiatric mood and affect Overall: normal mood and affect 08/05/2015 None Full Exam - General 1994 Constitutional general appearance Development: well developed 10/22/2014 None Full Exam - General 1994 Constitutional general appearance Development: appears stated age 0710/22/2014 None Full Exam - General 1994 Constitutional general appearance Hygiene/Attention to Grooming: good hygiene 10/22/2014 None Full Exam - General 1994 Eyes conjunctiva /eyelids Overall: conjunctiva clear 10/22/2014 None Full Exam - General 1994 Eyes conjunctiva /eyelids Overall: cornea clear 10/22/2014 None Full Exam - General 1994 Eyes conjunctiva /eyelids Overall: eyelids normal 10/22/2014 None Full Exam - General 1994 Eyes pupils and irises Overall: pupils equal, round, reactive to light and accomodation 10/22/2014 None Full Exam - General 1994 Ears/Nose/Throat otoscopic exam Overall: external auditory canals clear 10/22/2014 None Full Exam - General 1994 Ears/Nose/Throat otoscopic exam Overall: tympanic membranes clear 10/22/2014 None Full Exam - General 1994 Ears/Nose/Throat lips/teeth/gingiva Overall: benign lips 10/22/2014 None Full Exam - General 1994 Ears/Nose/Throat lips/teeth/gingiva Overall: normal dentition 10/22/2014 None Full Exam - General 1994 Ears/Nose/Throat oral cavity/pharynx/larynx Overall: oral mucosa clear 10/22/2014 None Full Exam - General 1994 Ears/Nose/Throat oral cavity/pharynx/larynx Overall: oropharyngeal mucosa clear 10/22/2014 None Full Exam - General 1994 Ears/Nose/Throat oral cavity/pharynx/larynx Overall: hypopharynx benign 10/22/2014 None Full Exam - General 1994 Ears/Nose/Throat oral cavity/pharynx/larynx Overall: no masses 10/22/2014 None Full Exam - General 1994 Respiratory auscultation Overall: breath sounds clear bilaterally 10/22/2014 None Full Exam - General 1994 Respiratory respiratory effort/rhythm Overall: no retractions 10/22/2014 None Full Exam - General 1994 Respiratory respiratory effort/rhythm Overall: normal rate 10/22/2014 None Full Exam - General 1994 Cardiovascular extremities Overall: no clubbing 10/22/2014 None Full Exam - General 1994 Cardiovascular auscultation of heart Overall: regular rate 10/22/2014 None Full Exam - General 1994 Cardiovascular auscultation of heart Overall: normal heart sounds 10/22/2014 None Full Exam - General 1994 Abdomen abdominal exam Overall: no tenderness 10/22/2014 None Full Exam - General 1994 Abdomen abdominal exam Overall: normal bowel sounds 10/22/2014 None Full Exam - General 1994 Lymphatic neck nodes Overall: anterior cervical chain benign 10/22/2014 None Full Exam - General 1994 Lymphatic neck nodes Overall: posterior cervical chain benign 10/22/2014 None Full Exam - General 1994 Musculoskeletal spine, ribs and pelvis Overall: spine benign 10/22/2014 None Full Exam - General 1994 Musculoskeletal spine, ribs and pelvis Overall: sacroiliac joint benign 10/22/2014 None Full Exam - General 1994 Musculoskeletal spine, ribs and pelvis Overall: good posture 10/22/2014 None Full Exam - General 1994 Musculoskeletal head and neck Overall: head atraumatic 10/22/2014 None Full Exam - General 1994 Musculoskeletal head and neck Overall: cervical spine benign 10/22/2014 None Full Exam - General 1994 Integument inspection of skin Overall: few scattered moles, no gross abnormalities 10/22/2014 None Full Exam - General 1994 Neurologic deep tendon reflexes Overall: deep tendon reflexes intact 10/22/2014 None Full Exam - General 1994 Neurologic cranial nerves Overall: crainial nerves 2 - 12 grossly intact 10/22/2014 None Full Exam - General 1994 Psychiatric orientation/consciousness Overall: oriented to person, place and time 10/22/2014 None Full Exam - General 1994 Psychiatric mood and affect Overall: normal mood and affect 10/22/2014 None Procedures Procedure Codes Date IIV4 VACC NO PRSV 3 YRS+ IM CPT-4: 44129 01/16/2017 FLU VAC NO PRSV 4 SURJIT 3 YRS+ CPT-4: 85314 01/16/2017 ADMIN INFLUENZA VIRUS VAC CPT-4: G0008 01/16/2017 IIV4 VACC NO PRSV 3 YRS+ IM CPT-4: 50229 01/16/2017 FLU VACC PRSV FREE INC ANTIG CPT-4: 65132 12/30/2015 PNEUMOCOCCAL VACC [address]: 62191771 CPT-4: 09724 12/30/2015 ADMIN INFLUENZA VIRUS VAC CPT-4: G0008 12/30/2015 ADMIN PNEUMOCOCCAL VACCINE SNOMED CT: 44645039 CPT-4: G0009 12/30/2015 Vital Signs Date Vital 05/29/2017 Blood Pressure 1: 148/78 Code : 8480-6 BMI: 29.0 Code : 58547-7 Heart Rate 1 : 59 bpm Height: 5'10" SpO2: 99% Weight: 202 lbs 01/16/2017 Blood Pressure 1: 140/76 Code : 8480-6 BMI: 29.9 Code : 79899-0 Heart Rate 1 : 73 bpm Height: 5'10" SpO2: 96% Weight: 208 lbs 8 oz 12/26/2016 Blood Pressure 1: 152/82 Code : 8480-6 BMI: 30.4 Code : 90677-9 Heart Rate 1 : 69 bpm Height: 5'10" SpO2: 96% Weight: 212 lbs 08/18/2016 Blood Pressure 1: 150/82 Code : 8480-6 BMI: 30.4 Code : 84517-4 Heart Rate 1 : 64 bpm Height: 5'10" SpO2: 97% Weight: 212 lbs 04/28/2016 Blood Pressure 1: 120/68 Code : 8480-6 BMI: 30.1 Code : 07543-0 Heart Rate 1 : 65 bpm Height: 5'10" SpO2: 98% Weight: 210 lbs 12/30/2015 Blood Pressure 1: 128/68 Code : 8480-6 BMI: 29.4 Code : 52010-3 Heart Rate 1 : 71 bpm Height: 5'10" SpO2: 97% Weight: 205 lbs 12/09/2015 Blood Pressure 1: 118/70 Code : 8480-6 BMI: 29.7 Code : 81135-5 Heart Rate 1 : 67 bpm Height: 5'10" SpO2: 95% Weight: 207 lbs 08/05/2015 Blood Pressure 1: 132/76 Code : 8480-6 BMI: 28.4 Code : 51941-3 Heart Rate 1 : 62 bpm Height: 5'10" SpO2: 98% Weight: 198 lbs 02/02/2015 Blood Pressure 1: 124/84 Code : 8480-6 BMI: 28.7 Code : 50844-2 Heart Rate 1 : 58 bpm Height: 5'10" SpO2: 96% Weight: 200 lbs 10/22/2014 Blood Pressure 1: 140/72 Code : 8480-6 BMI: 28.0 Code : 65231-1 Heart Rate 1 : 60 bpm Height: 5'10" Weight: 195 lbs Functional Status No Functional Status data History of Present Illness Symptom Name Status Result Effective Date Notes hypertension Quality chronic 05/29/2017 None hypertension Quality primary hypertension 05/29/2017 None hypertension Onset and Resolution ongoing 05/29/2017 None hypertension Onset of Symptom during adulthood 05/29/2017 None hypertension Alleviating Factors medication 05/29/2017 None hypertension Exacerbating Factors stress 05/29/2017 None hypertension Pertinent Findings Denies dizziness 05/29/2017 None hypertension Pertinent Findings dyspnea 05/29/2017 --improved hypertension Pertinent Findings Denies edema 05/29/2017 None dyspnea Quality intermittent 05/29/2017 He reports that there are times that he is working and he is fine, then other times he has shortness of breath without significant activty dyspnea Quality shortness of breath 05/29/2017 - pt has history of smoking cigars - he quit when he was about 69 - dyspnea Onset and Resolution ongoing 05/29/2017 None dyspnea Alleviating Factors rest 05/29/2017 None dyspnea Exacerbating Factors exertion 05/29/2017 None hyperlipidemia Onset and Resolution gradual in onset 05/29/2017 None hyperlipidemia Onset of Symptom during adulthood 05/29/2017 None hyperlipidemia Alleviating Factors medication 05/29/2017 None hyperlipidemia Exacerbating Factors diet 05/29/2017 None hyperlipidemia Quality chronic 05/29/2017 None hyperlipidemia Quality stable 05/29/2017 None hyperlipidemia Significant Medications statin 05/29/2017 None dyspnea Quality improving 05/29/2017 None dyspnea Frequency of Episodes decreasing 05/29/2017 None hypertension Quality chronic 01/16/2017 None hypertension Quality primary hypertension 01/16/2017 None hypertension Onset and Resolution ongoing 01/16/2017 None hypertension Onset of Symptom during adulthood 01/16/2017 None hypertension Alleviating Factors medication 01/16/2017 None hypertension Exacerbating Factors stress 01/16/2017 None hypertension Pertinent Findings Denies dizziness 01/16/2017 None hypertension Pertinent Findings dyspnea 01/16/2017 None hypertension Pertinent Findings Denies edema 01/16/2017 None hypertension Quality chronic 12/26/2016 None hypertension Quality primary hypertension 12/26/2016 None hypertension Onset and Resolution ongoing 12/26/2016 None hypertension Onset of Symptom during adulthood 12/26/2016 None hypertension Alleviating Factors medication 12/26/2016 None hypertension Exacerbating Factors stress 12/26/2016 None hypertension Pertinent Findings Denies dizziness 12/26/2016 None hypertension Pertinent Findings dyspnea 12/26/2016 None hypertension Pertinent Findings Denies edema 12/26/2016 None dyspnea Quality intermittent 12/26/2016 He reports that there are times that he is working and he is fine, then other times he has shortness of breath without significant activty dyspnea Quality shortness of breath 12/26/2016 - pt has history of smoking cigars - he quit when he was about 69 - dyspnea Onset and Resolution ongoing 12/26/2016 None dyspnea Frequency of Episodes unchanged 12/26/2016 None dyspnea Alleviating Factors rest 12/26/2016 None dyspnea Exacerbating Factors exertion 12/26/2016 None hyperlipidemia Onset and Resolution gradual in onset 12/26/2016 None hyperlipidemia Onset and Resolution ongoing 12/26/2016 None hyperlipidemia Onset of Symptom during adulthood 12/26/2016 None hyperlipidemia Alleviating Factors medication 12/26/2016 None hyperlipidemia Exacerbating Factors diet 12/26/2016 None hyperlipidemia Quality chronic 12/26/2016 None hyperlipidemia Quality increased cholesterol 12/26/2016 None hyperlipidemia Quality increased TG 12/26/2016 None hypertension Quality chronic 08/18/2016 None hypertension Onset and Resolution ongoing 08/18/2016 None hypertension Onset of Symptom during adulthood 08/18/2016 None hypertension Alleviating Factors medication 08/18/2016 None hypertension Exacerbating Factors stress 08/18/2016 None hypertension Pertinent Findings Denies dizziness 08/18/2016 None hypertension Pertinent Findings edema 08/18/2016 occasionally dyspnea Quality intermittent 08/18/2016 He reports that there are times that he is working and he is fine, then other times he has shortness of breath without significant activty dyspnea Quality shortness of breath 08/18/2016 - pt has history of smoking cigars - he quit when he was about 69 - dyspnea Onset and Resolution ongoing 08/18/2016 None dyspnea Frequency of Episodes unchanged 08/18/2016 None dyspnea Alleviating Factors rest 08/18/2016 None dyspnea Exacerbating Factors exertion 08/18/2016 None hyperlipidemia Onset and Resolution gradual in onset 08/18/2016 None hyperlipidemia Onset and Resolution ongoing 08/18/2016 None hyperlipidemia Onset of Symptom during adulthood 08/18/2016 None hyperlipidemia Alleviating Factors medication 08/18/2016 None hyperlipidemia Exacerbating Factors diet 08/18/2016 None hyperlipidemia Quality chronic 08/18/2016 None hyperlipidemia Quality increased cholesterol 08/18/2016 None hyperlipidemia Quality increased TG 08/18/2016 None hypertension Pertinent Findings dyspnea 08/18/2016 None hypertension Quality primary hypertension 08/18/2016 None hypertension Quality chronic 04/28/2016 None hypertension Onset and Resolution ongoing 04/28/2016 None hypertension Onset of Symptom during adulthood 04/28/2016 None hypertension Severity mild 04/28/2016 None hypertension Alleviating Factors medication 04/28/2016 None hypertension Exacerbating Factors stress 04/28/2016 None hypertension Pertinent Findings dizziness 04/28/2016 occasionally hypertension Pertinent Findings Denies edema 04/28/2016 None dyspnea Quality shortness of breath 04/28/2016 - pt has history of smoking cigars - he quit when he was about 69 - dyspnea Onset and Resolution ongoing 04/28/2016 None dyspnea Frequency of Episodes unchanged 04/28/2016 None dyspnea Alleviating Factors rest 04/28/2016 None hyperlipidemia Onset and Resolution gradual in onset 04/28/2016 None hyperlipidemia Onset and Resolution ongoing 04/28/2016 None hyperlipidemia Onset of Symptom during adulthood 04/28/2016 None hyperlipidemia Severity mild 04/28/2016 None hyperlipidemia Quality increased cholesterol 04/28/2016 None hyperlipidemia Quality increased TG 04/28/2016 None hyperlipidemia Quality worsening 04/28/2016 None hyperlipidemia Alleviating Factors medication 04/28/2016 None hyperlipidemia Exacerbating Factors diet 04/28/2016 None dyspnea Quality intermittent 04/28/2016 He reports that there are times that he is working and he is fine, then other times he has shortness of breath without significant activty dyspnea Exacerbating Factors exertion 04/28/2016 None hyperlipidemia Quality chronic 04/28/2016 None hypertension Quality chronic 12/30/2015 None hypertension Onset and Resolution ongoing 12/30/2015 None hypertension Onset of Symptom during adulthood 12/30/2015 None hypertension Severity mild 12/30/2015 None hypertension Alleviating Factors medication 12/30/2015 None hypertension Exacerbating Factors stress 12/30/2015 None hypertension Pertinent Findings Denies dizziness 12/30/2015 -Only if he gets up quickly from sitting hypertension Pertinent Findings dyspnea 12/30/2015 None hypertension Pertinent Findings Denies edema 12/30/2015 None dyspnea Quality acute 12/30/2015 None dyspnea Quality shortness of breath 12/30/2015 - pt has history of smoking cigars - he quit when he was about 69 - dyspnea Onset and Resolution ongoing 12/30/2015 None dyspnea Onset of Symptom 3+ months ago 12/30/2015 None dyspnea Alleviating Factors rest 12/30/2015 None rash Location-Trunk on the buttocks 12/30/2015 None rash Quality improving 12/30/2015 None dyspnea Frequency of Episodes unchanged 12/30/2015 None hypertension Quality chronic 12/09/2015 None hypertension Onset and Resolution ongoing 12/09/2015 None hypertension Onset of Symptom during adulthood 12/09/2015 None hypertension Severity mild 12/09/2015 None hypertension Alleviating Factors medication 12/09/2015 None hypertension Exacerbating Factors stress 12/09/2015 None hypertension Pertinent Findings Denies dizziness 12/09/2015 -Only if he gets up quickly from sitting hypertension Pertinent Findings dyspnea 12/09/2015 None hypertension Pertinent Findings Denies edema 12/09/2015 None hyperlipidemia Onset and Resolution ongoing 12/09/2015 None hyperlipidemia Onset of Symptom during adulthood 12/09/2015 None hyperlipidemia Severity mild 12/09/2015 None hyperlipidemia Alleviating Factors medication 12/09/2015 None hyperlipidemia Exacerbating Factors diet 12/09/2015 None hyperlipidemia Quality chronic 12/09/2015 None hyperlipidemia Onset and Resolution gradual in onset 12/09/2015 None dyspnea Quality acute 12/09/2015 None dyspnea Quality shortness of breath 12/09/2015 - pt has history of smoking cigars - he quit when he was about 69 - dyspnea Onset and Resolution ongoing 12/09/2015 None dyspnea Onset of Symptom 2-3 months ago 12/09/2015 None dyspnea Alleviating Factors rest 12/09/2015 None myalgias Location on the left leg 08/05/2015 None myalgias Location on the right leg 08/05/2015 None hypertension Quality chronic 08/05/2015 None hypertension Onset and Resolution ongoing 08/05/2015 None hypertension Onset of Symptom during adulthood 08/05/2015 None hypertension Severity mild 08/05/2015 None hypertension Alleviating Factors medication 08/05/2015 None hypertension Exacerbating Factors stress 08/05/2015 None hyperlipidemia Onset and Resolution ongoing 08/05/2015 None hyperlipidemia Severity mild 08/05/2015 None hyperlipidemia Quality chronic 08/05/2015 None hypertension Pertinent Findings Denies dizziness 08/05/2015 None hypertension Pertinent Findings dyspnea 08/05/2015 -occasionally hypertension Pertinent Findings Denies edema 08/05/2015 None hyperlipidemia Onset of Symptom during adulthood 08/05/2015 None hyperlipidemia Alleviating Factors medication 08/05/2015 None hyperlipidemia Exacerbating Factors diet 08/05/2015 None myalgias Quality intermittent 08/05/2015 None myalgias Exacerbating Factors medication 08/05/2015 lipitor myalgias Location on the left leg 02/02/2015 thought it was due to knees- but wondering if it is due to Lipitor- worse at night myalgias Location on the right leg 02/02/2015 None hypertension Quality chronic 02/02/2015 None hypertension Onset and Resolution ongoing 02/02/2015 None hypertension Onset of Symptom during adulthood 02/02/2015 None hypertension Severity mild 02/02/2015 None hypertension Alleviating Factors medication 02/02/2015 None hypertension Exacerbating Factors change in dietary habits 02/02/2015 None hypertension Exacerbating Factors stress 02/02/2015 None hyperlipidemia Onset and Resolution ongoing 02/02/2015 None hyperlipidemia Severity mild 02/02/2015 None hyperlipidemia Quality chronic 02/02/2015 None myalgias Location on the right leg 10/22/2014 None myalgias Location on the left leg 10/22/2014 thought it was due to knees- but wondering if it is due to Lipitor- worse at night hypertension Onset and Resolution ongoing 10/22/2014 None hyperlipidemia Onset and Resolution ongoing 10/22/2014 None hypertension Quality chronic 10/22/2014 None hypertension Onset of Symptom during adulthood 10/22/2014 None hypertension Severity mild 10/22/2014 None hypertension Alleviating Factors medication 10/22/2014 None hypertension Exacerbating Factors stress 10/22/2014 None hypertension Exacerbating Factors change in dietary habits 10/22/2014 None Advance Directives No Advance Directive data Encounters Encounter Performer Location Codes Date ([id number]) [id number] EST. PATIENT, LEVEL IV Diagnosis: Essential (primary) hypertension[ICD10: I10] Diagnosis: Mixed hyperlipidemia[ICD10: E78.2] Diagnosis: Obstructive sleep apnea (adult) (pediatric)[ICD10: G47.33] [facility] CPT-4: 66393 05/29/2017 ([id number]) 85624 EST. PATIENT, LEVEL III Diagnosis: Essential (primary) hypertension[ICD10: I10] Diagnosis: Encounter for immunization[ICD10: Z23] [facility] CPT-4: 11646 01/16/2017 ([id number]) 93236 EST. PATIENT, LEVEL IV Diagnosis: Essential (primary) hypertension[ICD10: I10] Diagnosis: Mixed hyperlipidemia[ICD10: E78.2] Diagnosis: Benign prostatic hyperplasia without lower urinary tract symptoms[ ICD10: N40.0] Diagnosis: Obstructive sleep apnea (adult) (pediatric)[ICD10: G47.33] [facility] CPT-4: 18455 12/26/2016 ([id number]) 16457 EST. PATIENT, LEVEL IV Diagnosis: Essential (primary) hypertension[ICD10: I10] Diagnosis: Other specified disorders of bone density and structure, left ankle and foot[ICD10: M85.872] Diagnosis: Other forms of dyspnea[ICD10: R06.09] Candice Salas MD [facility] CPT-4: 36193 08/18/2016 ([id number]) 09737 EST. PATIENT, LEVEL IV Diagnosis: Essential (primary) hypertension[ICD10: I10] Diagnosis: Slow transit constipation[ICD10: K59.01] Diagnosis: Mixed hyperlipidemia[ICD10: E78.2] Candice Salas MD [facility] CPT-4: 10705 04/28/2016 ([id number]) 29896 EST. PATIENT, LEVEL IV Diagnosis: Essential (primary) hypertension[ICD10: I10] Diagnosis: Mixed hyperlipidemia[ICD10: E78.2] Diagnosis: Tinea corporis[ICD10: B35.4] Candice Salas MD, [facility] CPT- 4: 09476 12/30/2015 ([id number]) 53586 EST. PATIENT, LEVEL IV Diagnosis: Essential (primary) hypertension[ICD10: I10] Diagnosis: Other forms of dyspnea[ICD10: R06.09] Diagnosis: Tinea corporis[ICD10: B35.4] Candice Salas MD [facility] CPT- 4: 37651 12/09/2015 ([id number]) 75853 EST. PATIENT, LEVEL IV Diagnosis: Essential (primary) hypertension[ICD10: I10] Diagnosis: Mixed hyperlipidemia[ICD10: E78.2] Diagnosis: Slow transit constipation[ICD10: K59.01] Candice Salas MD, [facility] CPT-4: 29704 08/05/2015 ([id number]) 14255 EST. PATIENT, LEVEL III Diagnosis: Essential (primary) hypertension[ICD10: I10] Diagnosis: Other myositis, unspecified lower leg[ICD10: M60.869] Diagnosis: Pain in leg, unspecified[ICD10: M79.606] Candice Salas MD, [facility] CPT-4: 66688 02/02/2015 ([id number]) OFFICE VISIT, NEW - LEVEL 4 Diagnosis: ESSENTIAL HYPERTENSION[ICD9: 401.9] Diagnosis: HYPERLIPIDEMIA[ICD9: 272.4] Diagnosis: MYALGIA AND MYOSITIS[ICD9: 729.1] Candice Salas MD, [facility] CPT-4: 12894 10/22/2014 Plan of Care Planned Activity Notes Codes Status Date Visit Plan: Hypertension - well controlled - continue with current medications, continue with no added salt diet. Pt has been encouraged to exercise daily. The pt has been advised to call the office if there are any acute concerns about change in blood pressure readings at home. Hyperlipidemia - pt has been counseled about appropriate diet, exercise, and need for low fat food choices. I have discussed the need for the patient to take medications as prescribed. If the patient has negative side effects from the medication, they are to CALL the office and not abruptly discontinue the medication without discussion with a practitioner in the office. We will check labs in 3-6 months for follow up on the patient's chronic medical problem and to assure normal liver response to medications. Sleep apnea - continue with cpap machine and oxygen supplementation. 05/29/2017 Appointment: Candice Salas WPtel: [phone] [id number] (15 min) Moderate 05/29/2017 Patient Education: Patient Medication Summary Completed 05/29/2017 Appointment: [id number] (15 min) Moderate 05/22/2017 Appointment: [id number] (15 min) Moderate 01/16/2017 Patient Education: Patient Medication Summary Completed 01/16/2017 Visit Plan: Hypertension - well controlled - continue with current medications, continue with no added salt diet. Pt has been encouraged to exercise daily. The pt has been advised to call the office if there are any acute concerns about change in blood pressure readings at home. Echo 03/16/[address] Wood Hyperlipidemia - pt has been counseled about appropriate diet, exercise, and need for low fat food choices. I have discussed the need for the patient to take medications as prescribed. If the patient has negative side effects from the medication, they are to CALL the office and not abruptly discontinue the medication without discussion with a practitioner in the office. We will check labs in 3-6 months for follow up on the patient's chronic medical problem and to assure normal liver response to medications. Sleep apnea - continue with CPAP, monitor symptoms, pt to have appt for follow-up with Dr. Adams in the next month. BPH - supportive care, continue [place] medication. 12/26/2016 Appointment: [id number] (15 min) Moderate 12/26/2016 Patient Education: Patient Medication Summary Completed 12/26/2016 Patient Education: Obesity Completed 12/26/2016 Visit Plan: Hypertension - well controlled - continue with current medications, continue with no added salt diet. Pt has been encouraged to exercise daily. The pt has been advised to call the office if there are any acute concerns about change in blood pressure readings at home. Dyspnea - recommended pulmonary function studies Osteopenia from heel test from [place] - needs to have a routine bone density due to his heel having thinness. 08/18/2016 Appointment: [id number] (15 min) Moderate 08/18/2016 Patient Education: Patient Medication Summary Completed 08/18/2016 Patient Education: Obesity Completed 08/18/2016 Care Plan: DXA BONE DENSITY AXIAL LOINC : 88175-0 Pending 08/18/2016 Visit Plan: Hypertension - well controlled - continue with current medications, continue with no added salt diet. Pt has been encouraged to exercise daily. The pt has been advised to call the office if there are any acute concerns about change in blood pressure readings at home. Hyperlipidemia - pt has been counseled about appropriate diet, exercise, and need for low fat food choices. I have discussed the need for the patient to take medications as prescribed. If the patient has negative side effects from the medication, they are to CALL the office and not abruptly discontinue the medication without discussion with a practitioner in the office. We will check labs in 3-6 months for follow up on the patient's chronic medical problem and to assure normal liver response to medications. 04/28/2016 Appointment: [id number] (15 min) Moderate 04/28/2016 Patient Education: Patient Medication Summary Completed 04/28/2016 Patient Education: Hypertension Completed 04/28/2016 Visit Plan: Hypertension - well controlled - continue with current medications, continue with no added salt diet. Pt has been encouraged to exercise daily. The pt has been advised to call the office if there are any acute concerns about change in blood pressure readings at home. Hyperlipidemia - pt has been counseled about appropriate diet, exercise, and need for low fat food choices. I have discussed the need for the patient to take medications as prescribed. If the patient has negative side effects from the medication, they are to CALL the office and not abruptly discontinue the medication without discussion with a practitioner in the office. We will check labs in 3-6 months for follow up on the patient's chronic medical problem and to assure normal liver response to medications. Rash - finish use of topical medication - RX for diflucan sent to pharmacy 12/30/2015 Visit Plan: Hypertension - well controlled - continue with current medications, continue with no added salt diet. Pt has been encouraged to exercise daily. The pt has been advised to call the office if there are any acute concerns about change in blood pressure readings at home. Hyperlipidemia - pt has been counseled about appropriate diet, exercise, and need for low fat food choices. I have discussed the need for the patient to take medications as prescribed. If the patient has negative side effects from the medication, they are to CALL the office and not abruptly discontinue the medication without discussion with a practitioner in the office. We will check labs in 3-6 months for follow up on the patient's chronic medical problem and to assure normal liver response to medications. Rash - finish use of topical medication - RX for diflucan sent to pharmacy 12/30/2015 Appointment: [facility]el[id number] (15 min) Moderate 12/30/2015 Patient Education: Patient Medication Summary Completed 12/30/2015 Visit Plan: Hypertension - well controlled - continue with current medications, continue with no added salt diet. Pt has been encouraged to exercise daily. The pt has been advised to call the office if there are any acute concerns about change in blood pressure readings at home. Rash - rx for diflucan and clotrimazole cream. Dyspnea - continue with exercise - defer to security system analyst. 12/09/2015 Patient Education: Patient Medication Summary Completed 12/09/2015 Patient Education: Patient Medication Summary Completed 12/09/2015 Patient Education: Hypertension Completed 12/09/2015 Care Plan: B12 Pending 12/09/2015 Care Plan: CHEST X-RAY 2VW FRONTAL&LATL LOINC : 72921-1 Pending 12/09/2015 Visit Plan: Hypertension - well controlled - continue with current medications, continue with no added salt diet. Pt has been encouraged to exercise daily. The pt has been advised to call the office if there are any acute concerns about change in blood pressure readings at home. Hyperlipidemia - pt has been counseled about appropriate diet, exercise, and need for low fat food choices. I have discussed the need for the patient to take medications as prescribed. If the patient has negative side effects from the medication, they are to CALL the office and not abruptly discontinue the medication without discussion with a practitioner in the office. We will check labs in 3-6 months for follow up on the patient's chronic medical problem and to assure normal liver response to medications. Constipation - Power Pudding: equal parts of prune juice, bran flakes, apple sauce - mix together, and take 1-2 tablespoons up to three times daily. The mixture will stay good in the fridge for 10 days. if this helps to decrease your constipation - then you can stop the colace 08/05/2015 Appointment: Candice Salas WPtel: [address] [place], [place] [id number] (15 min) Moderate 08/05/2015 Patient Education: Patient Medication Summary Completed 08/05/2015 Patient Education: Hypertension Completed 08/05/2015 Visit Plan: Hypertension - well controlled - continue with current medications, continue with no added salt diet. Pt has been encouraged to exercise daily. The pt has been advised to call the office if there are any acute concerns about change in blood pressure readings at home. stop lipitor x 1 month - to see if pain and weakness in legs improves. Myalgia/Myositis/ arthralgia - 02/02/2015 Appointment: [facility]el[id number] (15 min) Moderate 02/02/2015 Patient Education: Patient Medication Summary Completed 02/02/2015 Patient Education: Hypertension Completed 02/02/2015 Visit Plan: Hypertension - well controlled - continue with current medications, continue with no added salt diet. Pt has been encouraged to exercise daily. The pt has been advised to call the office if there are any acute concerns about change in blood pressure readings at home. Hyperlipidemia - pt has been counseled about appropriate diet, exercise, and need for low fat food choices. I have discussed the need for the patient to take medications as prescribed. If the patient has negative side effects from the medication, they are to CALL the office and not abruptly discontinue the medication without discussion with a practitioner in the office. We will check labs in 3-6 months for follow up on the patient's chronic medical problem and to assure normal liver response to medications. Myalgias - recommended pt to decrease dose of lipitor due to myalgias and to start on co-enzyme Q10. 10/22/2014 Appointment: [facility]ue[facility]ice aldana [facility]el[id number] [place] ([place] New Patient 10/22/2014 Patient Education: Patient Medication Summary Completed 10/22/2014 Patient Education: Hypertension Completed 10/22/2014 Instructions Comment stop lipitor x 1 month - to see if pain and weakness in legs improves. . Hypertension - well controlled - continue with current medications, continue with no added salt diet. Pt has been encouraged to exercise daily. The pt has been advised to call the office if there are any acute concerns about change in blood pressure readings at home. stop lipitor x 1 month - to see if pain and weakness in legs improves. Myalgia/Myositis/arthralgia - Power Pudding: equal parts of prune juice, bran flakes, apple sauce - mix together, and take 1-2 tablespoons up to three times daily. The mixture will stay good in the fridge for 10 days. if this helps to decrease your constipation - then you can stop the colace decrease the famotidine to every other day x 2 weeks, if the acid reflux does not flair up- then it is okay to stop the famotidine and just take it NEEDED for acid flairs. . Hypertension - well controlled - continue with current medications, continue with no added salt diet. Pt has been encouraged to exercise daily. The pt has been advised to call the office if there are any acute concerns about change in blood pressure readings at home. Hyperlipidemia - pt has been counseled about appropriate diet, exercise, and need for low fat food choices. I have discussed the need for the patient to take medications as prescribed. If the patient has negative side effects from the medication, they are to CALL the office and not abruptly discontinue the medication without discussion with a practitioner in the office. We will check labs in 3-6 months for follow up on the patient's chronic medical problem and to assure normal liver response to medications. Constipation - Power Pudding: equal parts of prune juice, bran flakes, apple sauce - mix together, and take 1-2 tablespoons up to three times daily. The mixture will stay good in the fridge for 10 days. if this helps to decrease your constipation - then you can stop the colace start on b12 liquid or b12 dissolving tablets - take it daily - one pill of the dissolving tabs or 2000mcg of the liquid daily. triglycerides are high - and you need to cut back on the fats in the diet. . Hypertension - well controlled - continue with current medications, continue with no added salt diet. Pt has been encouraged to exercise daily. The pt has been advised to call the office if there are any acute concerns about change in blood pressure readings at home. Hyperlipidemia - pt has been counseled about appropriate diet, exercise, and need for low fat food choices. I have discussed the need for the patient to take medications as prescribed. If the patient has negative side effects from the medication, they are to CALL the office and not abruptly discontinue the medication without discussion with a practitioner in the office. We will check labs in 3-6 months for follow up on the patient's chronic medical problem and to assure normal liver response to medications. . Hypertension - well controlled - continue with current medications, continue with no added salt diet. Pt has been encouraged to exercise daily. The pt has been advised to call the office if there are any acute concerns about change in blood pressure readings at home. Echo 03/16/[address] Wood Hyperlipidemia - pt has been counseled about appropriate diet, exercise, and need for low fat food choices. I have discussed the need for the patient to take medications as prescribed. If the patient has negative side effects from the medication, they are to CALL the office and not abruptly discontinue the medication without discussion with a practitioner in the office. We will check labs in 3-6 months for follow up on the patient's chronic medical problem and to assure normal liver response to medications. Sleep apnea - continue with CPAP, monitor symptoms, pt to have appt for follow- up with Dr. Adams in the next month. BPH - supportive care, continue [place] medication. . Hypertension - well controlled - continue with current medications, continue with no added salt diet. Pt has been encouraged to exercise daily. The pt has been advised to call the office if there are any acute concerns about change in blood pressure readings at home. Dyspnea - recommended pulmonary function studies Osteopenia from heel test from [facility] - needs to have a routine bone density due to his heel having thinness. use the diflucan pill one pill daily x 10 days use the clotrimazole cream on your bottom and back and leg three times daily . Hypertension - well controlled - continue with current medications, continue with no added salt diet. Pt has been encouraged to exercise daily. The pt has been advised to call the office if there are any acute concerns about change in blood pressure readings at home. Rash - rx for diflucan and clotrimazole cream. Dyspnea - continue with exercise - defer to security system analyst. . Hypertension - well controlled - continue with current medications, continue with no added salt diet. Pt has been encouraged to exercise daily. The pt has been advised to call the office if there are any acute concerns about change in blood pressure readings at home. Hyperlipidemia - pt has been counseled about appropriate diet, exercise, and need for low fat food choices. I have discussed the need for the patient to take medications as prescribed. If the patient has negative side effects from the medication, they are to CALL the office and not abruptly discontinue the medication without discussion with a practitioner in the office. We will check labs in 3-6 months for follow up on the patient's chronic medical problem and to assure normal liver response to medications. Rash - finish use of topical medication - RX for diflucan sent to pharmacy . Hypertension - well controlled - continue with current medications, continue with no added salt diet. Pt has been encouraged to exercise daily. The pt has been advised to call the office if there are any acute concerns about change in blood pressure readings at home. Hyperlipidemia - pt has been counseled about appropriate diet, exercise, and need for low fat food choices. I have discussed the need for the patient to take medications as prescribed. If the patient has negative side effects from the medication, they are to CALL the office and not abruptly discontinue the medication without discussion with a practitioner in the office. We will check labs in 3-6 months for follow up on the patient's chronic medical problem and to assure normal liver response to medications. Rash - finish use of topical medication - RX for diflucan sent to pharmacy co Q10 (co-enzyme Q10) take as directed one pill daily. . Hypertension - well controlled - continue with current medications, continue with no added salt diet. Pt has been encouraged to exercise daily. The pt has been advised to call the office if there are any acute concerns about change in blood pressure readings at home. Hyperlipidemia - pt has been counseled about appropriate diet, exercise, and need for low fat food choices. I have discussed the need for the patient to take medications as prescribed. If the patient has negative side effects from the medication, they are to CALL the office and not abruptly discontinue the medication without discussion with a practitioner in the office. We will check labs in 3-6 months for follow up on the patient's chronic medical problem and to assure normal liver response to medications. Myalgias - recommended pt to decrease dose of lipitor due to myalgias and to start on co-enzyme Q10. . Hypertension - well controlled - continue with current medications, continue with no added salt diet. Pt has been encouraged to exercise daily. The pt has been advised to call the office if there are any acute concerns about change in blood pressure readings at home. Hyperlipidemia - pt has been counseled about appropriate diet, exercise, and need for low fat food choices. I have discussed the need for the patient to take medications as prescribed. If the patient has negative side effects from the medication, they are to CALL the office and not abruptly discontinue the medication without discussion with a practitioner in the office. We will check labs in 3-6 months for follow up on the patient's chronic medical problem and to assure normal liver response to medications. Sleep apnea - continue with cpap machine and oxygen supplementation.
--- OUTSIDE RECORDS SUMMARY | 2017-06-20 15:42 | XMS REPORT | Continuity of Care Document ---
Author Author [facility] Organization [facility] Address Unknown Phone Unavailable Allergies Active Description Code Type Severity Reaction Onset Reported/Identified Relationship to Patient Clinical Status Yes NKANo Known Allergies NKA Miscellaneous Allergy Unknown N/A 01/17/2006 Medications There is no data. 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 12/26/2012 BRITTANI MARCUM MD Ot 562.10 DIVERTICULOSIS COLON (W/O MENT OF HEMORR 12/26/2012 BRITTANI MARCUM MD Ot V16.0 FAMILY HX-GI MALIGNANCY 05/27/2014 YU GUDINO, DONNA Cervantes Ot V43.65 05/27/2014 YU GUDINO, DONNA Cervantes Ot V58.62 05/27/2014 YU GUDINO, DONNA Cervantes Ot V58.83 06/10/2014 OTIS GUDINO, RUDY Ta Ot V43.65 06/10/2014 OTIS GUDINO, RUDY Ta Ot V58.62 06/10/2014 OTIS GUDINO, RUDY Ta Ot V58.83 06/10/2014 YU GUDINO, DONNA Cervantes Ot V43.65 06/10/2014 YU GUDINO, DONNA Cervantes Ot V58.62 06/10/2014 YU GUDINO, DONNA Cervantes Ot V58.83 06/11/2014 YU GUDINO, DONNA Cervantes Ot V43.65 06/11/2014 YU GUDINO, DONNA Cervantes Ot V58.62 06/11/2014 YU GUDINO, DONNA Cervantes Ot V58.83 05/25/2015 WEN SOFIA DO Ot K59.00 CONSTIPATION, UNSPECIFIED 05/25/2015 WEN SOFIA DO Ot Z96.659 PRESENCE OF UNSPECIFIED ARTIFICIAL KNEE 05/25/2015 WEN SOFIA DO Ot Z98.89 OTHER SPECIFIED POSTPROCEDURAL STATES 12/09/2015 Ot 719.41 JOINT PAIN- SHLDER 12/09/2015 BRITTANI MARCUM MD Ot V72.84 EXAM PRE-OPERATIVE NOS 12/09/2015 DONNA NICHOLAS MD Ot V43.65 KNEE JOINT REPLACEMENT STATUS 12/09/2015 DONNA NICHOLAS MD Ot V58.62 ENCOUNT FOR LONG-TERM(CURRENT) USE OF AN 12/09/2015 DONNA NICHOLAS MD Ot V58.83 ENCOUNTER FOR THERAPEUTIC DRUG MONITORIN 12/09/2015 RUDY BERG MD Ot 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 JOINT REPLACEMENT STATUS 12/09/2015 RUDY BERG MD Ot V58.62 ENCOUNT FOR LONG-TERM(CURRENT) USE OF AN 12/09/2015 RUDY BERG MD Ot V58.83 ENCOUNTER FOR THERAPEUTIC DRUG MONITORIN 12/09/2015 DONNA NICHOLAS MD Ot V43.65 KNEE JOINT REPLACEMENT STATUS 12/09/2015 DONNA NICHOLAS MD Ot V58.62 ENCOUNT FOR LONG-TERM(CURRENT) USE OF AN 12/09/2015 DONNA NICHOLAS MD Ot V58.83 ENCOUNTER FOR THERAPEUTIC DRUG MONITORIN 12/09/2015 DONNA NICHOLAS MD Ot V43.65 KNEE JOINT REPLACEMENT STATUS 12/09/2015 DONNA NICHOLAS MD Ot V58.62 ENCOUNT FOR LONG-TERM(CURRENT) USE OF AN 12/09/2015 DONNA NICHOLAS MD Ot V58.83 ENCOUNTER FOR THERAPEUTIC DRUG MONITORIN 12/09/2015 Ot 719.41 JOINT PAIN- SHLDER 12/09/2015 BRITTANI MARCUM MD Ot V72.84 EXAM PRE-OPERATIVE NOS 12/09/2015 DONNA NICHOLAS MD Ot V43.65 KNEE JOINT REPLACEMENT STATUS 12/09/2015 DONNA NICHOLAS MD Ot V58.62 ENCOUNT FOR LONG-TERM(CURRENT) USE OF AN 12/09/2015 DONNA NICHOLAS MD Ot V58.83 ENCOUNTER FOR THERAPEUTIC DRUG MONITORIN 12/09/2015 RUDY BERG MD Ot V43.65 KNEE JOINT REPLACEMENT STATUS 12/09/2015 RUDY BERG MD Ot V58.62 ENCOUNT FOR LONG-TERM(CURRENT) USE OF AN 12/09/2015 RUDY BERG MD Ot V58.83 ENCOUNTER FOR THERAPEUTIC DRUG MONITORIN 12/09/2015 DONNA NICHOLAS MD Ot 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 JOINT REPLACEMENT STATUS 12/09/2015 DONNA NICHOLAS MD, Ot V58.62 ENCOUNT FOR LONG-TERM(CURRENT) USE OF AN 12/09/2015 DONNA NICHOLAS MD Ot V58.83 ENCOUNTER FOR THERAPEUTIC DRUG MONITORIN 12/09/2015 DONNA NICHOLAS MD, Ot V43.65 KNEE JOINT REPLACEMENT STATUS 12/09/2015 DONNA NICHOLAS MD, Ot V58.62 ENCOUNT FOR LONG-TERM(CURRENT) USE OF AN 12/09/2015 DONNA NICHOLAS MD, Ot V58.83 ENCOUNTER FOR THERAPEUTIC DRUG MONITORIN 12/10/2015 Ot 719.41 JOINT PAIN- SHLDER 12/10/2015 BRITTANI MARCUM MD Ot V72.84 EXAM PRE-OPERATIVE NOS 12/10/2015 DONNA NICHOLAS MD, Ot V43.65 KNEE JOINT REPLACEMENT STATUS 12/10/2015 DONNA NICHOLAS MD, Ot V58.62 ENCOUNT FOR LONG-TERM(CURRENT) USE OF AN 12/10/2015 DONNA NICHOLAS MD Ot V58.83 ENCOUNTER FOR THERAPEUTIC DRUG MONITORIN 12/10/2015 RUDY BERG MD Ot 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 JOINT REPLACEMENT STATUS 12/10/2015 RUDY BERG MD Ot V58.62 ENCOUNT FOR LONG-TERM(CURRENT) USE OF AN 12/10/2015 RUDY BERG MD Ot V58.83 ENCOUNTER FOR THERAPEUTIC DRUG MONITORIN 12/10/2015 DONNA NICHOLAS MD Ot V43.65 KNEE JOINT REPLACEMENT STATUS 12/10/2015 DONNA NICHOLAS MD Ot V58.62 ENCOUNT FOR LONG-TERM(CURRENT) USE OF AN 12/10/2015 DONNA NICHOLAS MD Ot V58.83 ENCOUNTER FOR THERAPEUTIC DRUG MONITORIN 12/10/2015 DONNA NICHOLAS MD Ot V43.65 KNEE JOINT REPLACEMENT STATUS 12/10/2015 DONNA NICHOLAS MD, Ot V58.62 ENCOUNT FOR LONG-TERM(CURRENT) USE OF AN 12/10/2015 DONNA NICHOLAS MD Ot V58.83 ENCOUNTER FOR THERAPEUTIC DRUG MONITORIN 12/11/2015 CASSIE GORDON MD Ot R06.09 OTHER FORMS OF DYSPNEA 12/15/2015 CASSIE GORDON MD Ot R06.09 OTHER FORMS OF DYSPNEA 12/30/2015 CASSIE GORDON MD Ot R06.09 OTHER FORMS OF DYSPNEA 08/19/2016 CASSIE GORDON MD Ot 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, 08/26/2016 Ot 719.41 JOINT PAIN- SHLDER 08/26/2016 BRITTANI MARCUM MD, Ot V72.84 EXAM PRE-OPERATIVE NOS 08/26/2016 DONNA NICHOLAS MD Ot V43.65 KNEE JOINT REPLACEMENT STATUS 08/26/2016 DONNA NICHOLAS MD Ot V58.62 ENCOUNT FOR LONG-TERM(CURRENT) USE OF AN 08/26/2016 DONNA NICHOLAS MD Ot V58.83 ENCOUNTER FOR THERAPEUTIC DRUG MONITORIN 08/26/2016 RUDY BERG MD Ot V43.65 KNEE JOINT REPLACEMENT STATUS 08/26/2016 RUDY BERG MD Ot V58.62 ENCOUNT FOR LONG-TERM(CURRENT) USE OF AN 08/26/2016 RUDY BERG MD Ot V58.83 ENCOUNTER FOR THERAPEUTIC DRUG MONITORIN 08/26/2016 DONNA NICHOLAS MD Ot V43.65 KNEE JOINT REPLACEMENT STATUS 08/26/2016 DONNA NICHOLAS MD Ot V58.62 ENCOUNT FOR LONG-TERM(CURRENT) USE OF AN 08/26/2016 DONNA NICHOLAS MD Ot V58.83 ENCOUNTER FOR THERAPEUTIC DRUG MONITORIN 08/26/2016 DONNA NICHOLAS MD Ot V43.65 KNEE JOINT REPLACEMENT STATUS 08/26/2016 DONNA NICHOLAS MD Ot V58.62 ENCOUNT FOR LONG-TERM(CURRENT) USE OF AN 08/26/2016 DONNA NICHOLAS MD Ot V58.83 ENCOUNTER FOR THERAPEUTIC DRUG MONITORIN 08/26/2016 CASSIE GORDON MD Ot R06.09 OTHER FORMS OF DYSPNEA 08/26/2016 CASSIE GORDON MD Ot 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, 08/26/2016 CASSIE GORDON MD Ot 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, 08/29/2016 CASSIE GORDON MD Ot F17.210 NICOTINE DEPENDENCE, CIGARETTES, UNCOMPL 08/29/2016 CASSIE GORDON MD Ot R06.00 DYSPNEA, UNSPECIFIED 09/07/2016 CASSIE GORDON MD Ot 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, 09/08/2016 Ot 719.41 JOINT PAIN- SHLDER 09/08/2016 BRITTANI MARCUM MD Ot V72.84 EXAM PRE-OPERATIVE NOS 09/08/2016 DONNA NICHOLAS MD Ot V43.65 KNEE JOINT REPLACEMENT STATUS 09/08/2016 DONNA NICHOLAS MD Ot V58.62 ENCOUNT FOR LONG-TERM(CURRENT) USE OF AN 09/08/2016 DONNA NICHOLAS MD Ot V58.83 ENCOUNTER FOR THERAPEUTIC DRUG MONITORIN 09/08/2016 OTIS GUDINO, RUDY Ta Ot V43.65 KNEE JOINT REPLACEMENT STATUS 09/08/2016 RUDY BERG MD Ot V58.62 ENCOUNT FOR LONG-TERM(CURRENT) USE OF AN 09/08/2016 RUDY BERG MD A Ot V58.83 ENCOUNTER FOR THERAPEUTIC DRUG MONITORIN 09/08/2016 DONNA NICHOLAS MD Ot V43.65 KNEE JOINT REPLACEMENT STATUS 09/08/2016 DONNA NICHOLAS MD Ot V58.62 ENCOUNT FOR LONG-TERM(CURRENT) USE OF AN 09/08/2016 DONNA NICHOLAS MD Ot V58.83 ENCOUNTER FOR THERAPEUTIC DRUG MONITORIN 09/08/2016 DONNA NICHOLAS MD Ot V43.65 KNEE JOINT REPLACEMENT STATUS 09/08/2016 DONNA NICHOLAS MD Ot V58.62 ENCOUNT FOR LONG-TERM(CURRENT) USE OF AN 09/08/2016 DONNA NICHOLAS MD Ot V58.83 ENCOUNTER FOR THERAPEUTIC DRUG MONITORIN 09/08/2016 CASSIE GORDON MD Ot R06.09 OTHER FORMS OF DYSPNEA 09/08/2016 CASSIE GORDON MD Ot 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, 09/08/2016 CASSIE GORDON MD Ot F17.210 NICOTINE DEPENDENCE, CIGARETTES, UNCOMPL 09/08/2016 CASSIE GORDON MD Ot R06.00 DYSPNEA, UNSPECIFIED 09/13/2016 CASSIE GORDON MD Ot 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, 09/13/2016 CASSIE GORDON MD Ot 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, 09/16/2016 CASSIE GORDON MD Ot 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, 09/29/2016 CASSIE GORDON MD, Ot 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, 10/10/2016 CASSIE GORDON MD Ot F17.210 NICOTINE DEPENDENCE, CIGARETTES, UNCOMPL 10/10/2016 HEIDI GUDINO, CASSIE Ta Ot R06.00 DYSPNEA, UNSPECIFIED 10/25/2016 NILSON NUNES FOLDER HAND Ot G47.34 IDIO SLEEP RELATED NONOBSTRUCTIVE ALVEOL 10/25/2016 NILSON NUNES FOLDER HAND Ot K76.0 FATTY (CHANGE OF) LIVER, NOT ELSEWHERE C 10/25/2016 NILSON NUNES FOLDER HAND Ot K80.20 CALCULUS OF GALLBLADDER W/O CHOLECYSTITI 10/25/2016 NILSON NUNES FOLDER HAND Ot R06.00 DYSPNEA, UNSPECIFIED 10/26/2016 NILSON NUNES FOLDER HAND Ot G47.10 HYPERSOMNIA, UNSPECIFIED 11/03/2016 NILSON NUNES FOLDER HAND Ot G47.10 HYPERSOMNIA, UNSPECIFIED 11/08/2016 NILSON NUNES E FOLDER HAND Ot G47.10 HYPERSOMNIA, UNSPECIFIED 11/10/2016 NILSON NUNES FOLDER HAND Ot G47.10 HYPERSOMNIA, UNSPECIFIED 11/11/2016 NILSON NUNES FOLDER HAND Ot G47.34 IDIO SLEEP RELATED NONOBSTRUCTIVE ALVEOL 11/11/2016 NILSON NUNES FOLDER HAND Ot G47.50 PARASOMNIA, UNSPECIFIED 11/11/2016 NILSON NUNES FOLDER HAND Ot G47.34 IDIO SLEEP RELATED NONOBSTRUCTIVE ALVEOL 11/11/2016 NILSON NUNES FOLDER HAND Ot G47.50 PARASOMNIA, UNSPECIFIED 11/12/2016 HEIDI GUDINO, CASSIE Ta Ot F17.210 NICOTINE DEPENDENCE, CIGARETTES, UNCOMPL 11/12/2016 HEIDI GUDINO, CASSIE Ta Ot R06.00 DYSPNEA, UNSPECIFIED 11/15/2016 NILSON NNUES FOLDER HAND Ot G47.34 IDIO SLEEP RELATED NONOBSTRUCTIVE ALVEOL 11/15/2016 NILSON NUNES FOLDER HAND Ot K76.0 FATTY (CHANGE OF) LIVER, NOT ELSEWHERE C 11/15/2016 NILSON NUNES FOLDER HAND Ot K80.20 CALCULUS OF GALLBLADDER W/O CHOLECYSTITI 11/15/2016 NILSON NUNES FOLDER HAND Ot R06.00 DYSPNEA, UNSPECIFIED 11/16/2016 NILSON NUNES FOLDER HAND Ot G47.34 IDIO SLEEP RELATED NONOBSTRUCTIVE ALVEOL 11/16/2016 INLSON NUNES APRN Ot G47.50 PARASOMNIA, UNSPECIFIED 01/03/2017 Ot 719.41 JOINT PAIN- SHLDER 01/03/2017 BRITTANI MARCUM MD Ot V72.84 EXAM PRE-OPERATIVE NOS 01/03/2017 DONNA NICHOLAS MD, Ot V43.65 KNEE JOINT REPLACEMENT STATUS 01/03/2017 DONNA NICHOLAS MD Ot V58.62 ENCOUNT FOR LONG-TERM(CURRENT) USE OF AN 01/03/2017 DONNA NICHOLAS MD, Ot V58.83 ENCOUNTER FOR THERAPEUTIC DRUG MONITORIN 01/03/2017 RUDY BERG MD Ot V43.65 KNEE JOINT REPLACEMENT STATUS 01/03/2017 RUDY BERG MD Ot V58.62 ENCOUNT FOR LONG-TERM(CURRENT) USE OF AN 01/03/2017 RUDY BERG MD Ot V58.83 ENCOUNTER FOR THERAPEUTIC DRUG MONITORIN 01/03/2017 DONNA NICHOLAS MD Ot V43.65 KNEE JOINT REPLACEMENT STATUS 01/03/2017 DONNA NICHOLAS MD Ot V58.62 ENCOUNT FOR LONG-TERM(CURRENT) USE OF AN 01/03/2017 DONNA NICHOLAS MD Ot V58.83 ENCOUNTER FOR THERAPEUTIC DRUG MONITORIN 01/03/2017 DONNA NICHOLAS MD, Ot 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 JOINT REPLACEMENT STATUS 01/03/2017 DONNA NICHOLAS MD, Ot V58.62 ENCOUNT FOR LONG-TERM(CURRENT) USE OF AN 01/03/2017 DONNA NICHOLAS MD Ot V58.83 ENCOUNTER FOR THERAPEUTIC DRUG MONITORIN 01/03/2017 HEIDI GUDINO, CASSIE Ta Ot R06.09 OTHER FORMS OF DYSPNEA 01/03/2017 HEIDI GUDINO, CASSIE Ta Ot M85.872 [facility] DISRD OF BONE DENSITY AND STRUCTURE, 01/03/2017 CASSIE GORDON MD Ot F17.210 NICOTINE DEPENDENCE, CIGARETTES, UNCOMPL 01/03/2017 CASSIE GORDON MD Ot R06.00 DYSPNEA, UNSPECIFIED 01/03/2017 NILSON NUNES APRN Ot G47.34 IDIO SLEEP RELATED NONOBSTRUCTIVE ALVEOL 01/03/2017 NILSON NUNES APRN Ot K76.0 FATTY (CHANGE OF) LIVER, NOT ELSEWHERE C 01/03/2017 NILSON NUNES APRN Ot K80.20 CALCULUS OF GALLBLADDER W/O CHOLECYSTITI 01/03/2017 NILSON NUNES FOLDER HAND Ot R06.00 DYSPNEA, UNSPECIFIED Procedures There is no data. Results There is no data. Encounters ACCT No. Visit Date/Time Discharge Status Pt. Type Provider Facility Loc./Unit Complaint [id number] 11/10/2016 19:50:00 11/11/2016 06:15:00 DIS Outpatient NILSON NUNES APRN [facility] SLEEP G47.10,G47.34 [id number] 10/24/2016 08:28:00 10/24/2016 23:59:59 CLS Outpatient NILSON NUNES APRN [facility] RAD J98.4 RESTRICTIVE LUNG DISEASE [id number] 09/08/2016 09:47:00 09/08/2016 23:59:59 CLS Outpatient CASSIE GORDON MD [facility] RAD OSTEOPENIA [id number] 08/26/2016 13:27:00 08/26/2016 23:59:59 CLS Outpatient CASSIE GORDON MD [facility] RT TOBACCO USE [id number] 12/09/2015 10:21:00 12/09/2015 23:59:59 CLS Outpatient CASSIE GORDON MD [facility] RAD DYSPNEA [id number] 05/25/2015 07:19:00 05/25/2015 08:31:00 DIS Emergency KIMBERLYN DOWEN K [facility] ER CONSTIPATION/ABD PAIN [id number] 05/19/2014 08:52:00 05/19/2014 23:59:59 CLS Outpatient DONNA NICHOLAS MD [facility] IV ANTIBIOTIC, KNEE REPLACEMENT [id number] 05/15/2014 08:15:00 05/15/2014 23:59:59 CLS Outpatient DONNA NICHOLAS MD [facility] IV ANTIBIOTICS,S/P KNEE REPLACEMENT [id number] 05/12/2014 08:10:00 05/12/2014 23:59:59 CLS Outpatient RUDY BERG MD [facility] S/P (L) TKA, IV ANTIBIOTICS [id number] 05/06/2014 20:27:00 05/06/2014 23:59:59 CLS Outpatient DONNA NICHOLAS MD [facility] IV ANTIBIOTIC THERAPY, S/ P KNEE REPLACEMENT [id number] 12/26/2012 08:28:00 12/26/2012 12:40:00 DIS Outpatient BRITTANI MARCUM MD [facility] SDC SCREENING [id number] 12/20/2012 07:11:00 12/20/2012 23:59:59 CLS Outpatient BRITTANI MARCUM MD [facility] PREOP SCREENING [id number] 11/11/2012 14:54:00 11/11/2012 23:59:59 CLS Emergency [id number] 06/20/2017 15:36:00 ACT Emergency SAM TAYLOR APRN [facility] ER LEFT WRIST LAC [id number] 03/28/2012 09:19:00 Document Registration
[2017-06-20] MEDS ORDERED: LIDOCAINE 2% 20 ML (XYLOCAINE) VIAL INJ ONE (16:00)
[2017-06-20] MEDS ORDERED: TETANUS,DIPTH,PERTUSS P/F (BOOSTRIX) 0.5 ML VIAL IM ONE (16:00)
--- NOTE | 2017-06-20 16:05 | ED Lower Extremity ---
General Chief Complaint: Laceration Stated Complaint: LEFT WRIST LAC Nursing Triage Note: pt presents to laceration to L wrist, pt was cutting bottle with knife and knife slipped. Nursing Sepsis Screen: No Definite Risk History of Present Illness Date Seen by Provider: Jun 20, 2017 Time Seen by Provider: 16:03 Initial Comments Patient presents to the emergency room with laceration to the left wrist. Laceration is 3 cm in length superficial. Patient reports he was using a box knife to cut the plastic off of a frozen water bottle and the knife slipped resulting in laceration. Onset: just prior to arrival Severity: moderate Pain/Injury Location: left other (wrist) Allergies and Home Medications Allergies Coded Allergies: NKANo Known Allergies (Verified Allergy, Unknown, 01/17/06) Home Medications Allopurinol 300 Mg Tab, 300 MG PO DAILY, (Reported) Amlodipine Besylate 10 Mg Tablet, 10 MG PO DAILY, (Reported) Aspirin 81 Mg Tablet.dr, 81 MG PO DAILY, (Reported) Atorvastatin Calcium 40 Mg Tablet, 40 MG PO HS, (Reported) Cholecalciferol (Vitamin D3) 2,000 Unit Tablet, 2,000 UNIT PO DAILY, (Reported) Cyclobenzaprine Hcl 5 Mg Tablet, 5 MG PO DAILY, (Reported) Docusate Sodium 100 Mg Capsule, 100 MG PO BID, (Reported) Famotidine 20 Mg Tablet, 20 MG PO DAILY, (Reported) Folic Acid 0.4 Mg Tablet, 400 MCG PO DAILY, (Reported) Irbesartan 300 Mg Tablet, 300 MG PO DAILY, (Reported) Isosorbide Mononitrate 30 Mg Tablet, 30 MG PO DAILY, (Reported) Meloxicam 15 Mg Tablet, 15 MG PO DAILY, (Reported) Metoprolol Succinate 25 Mg Tab.sr.24h, 25 MG PO DAILY, (Reported) Mu-Vits-Min Th/Lycopene/Lutein 1 Each Tablet, 1 TAB PO DAILY, (Reported) [place]-3 Fatty Acids/Fish Oil 1 Each Capsule, 1,000 MG PO DAILY, (Reported) Terazosin Hcl 2 Mg Capsule, 2 MG PO DAILY, (Reported) [Testosterone] , INJ MONTHLY, (Reported) GETS AT DR. MOON OFFICE THE Monday OF EVERY MONTH Patient Home Medication List Home Medication List Reviewed: Yes Constitutional: see HPI EENTM: see HPI Respiratory: no symptoms reported Cardiovascular: no symptoms reported Genitourinary: no symptoms reported Musculoskeletal: no symptoms reported Skin: see HPI Psychiatric/Neurological: No Symptoms Reported Past Bamwjha-Fxniyp-Nlizpm Hx Patient Social History Alcohol Use: Denies Use Recreational Drug Use: No Smoking Status: Never a Smoker Recent Foreign Travel: No Contact w/Someone Who Travel: No Recent Infectious Disease Expo: No Physical Abuse: No Sexual Abuse: No Immunizations Up To Date Date of Influenza Vaccine: Mar 17, 2015 Surgeries History of Surgeries: Yes (RIGHT KNEE SURGERY) Surgeries: Cardiac, Coronary Stent, Orthopedic Respiratory History of Respiratory Disorde: No Cardiovascular History of Cardiac Disorders: Yes (STENTS 9 YRS.AGO) Cardiac Disorders: Coronary Artery Disease Neurological History of Neurological Disord: No Gastrointestinal History of Gastrointestinal Di: No Musculoskeletal History of Musculoskeletal Dis: Yes (RIGHT KNEE SURGERY) Musculoskeletal Disorders: Arthritis Endocrine History of Endocrine Disorders: No Cancer History of Cancer: No Psychosocial History of Psychiatric Problem: No Suicide Risk Score: 0 Integumentary History of Skin or Integumenta: No Blood Transfusions History of Blood Disorders: No Physical Exam Vital Signs Vital Signs - First Documented 06/20/17 15:54 Temp 98.0 Pulse 90 Resp 22 B/P (MAP) 136/98 (111) Pulse Ox 93 O2 Delivery Room Air Capillary Refill : Less Than 3 Seconds General Appearance: WD/WN, no apparent distress HEENT: PERRL/EOMI, normal ENT inspection Neck: non-tender, full range of motion Respiratory: no respiratory distress, no accessory muscle use Gastrointestinal: normal bowel sounds, non tender Hips: bilateral hip non-tender, bilateral hip normal inspection, bilateral hip normal range of motion Legs: bilateral leg non-tender, bilateral leg normal inspection, bilateral leg normal range of motion Knees: bilateral knee non-tender, bilateral knee normal inspection, bilateral knee normal range of motion Ankles: bilateral ankle non-tender, bilateral ankle normal inspection, bilateral ankle normal range of motion Neurologic/Psychiatric: alert, normal mood/affect Skin: other (there is a 3 cm laceration with depth to the subcutaneous tissues to the radial side volar aspect left wrist. There is no evidence of arterial injury, bleeding is minimal. There is no evidence of a flexor tendon injury.) Laceration Repair : Wound Location: Upper Extremities Wound Length (cm): 3.5 Wound's Depth, Shape: sub Q Wound Explored: clean Irrigated w/ Saline (ccs): 30 Anesthesia: 1% Lidocaine Suture: Prolene Suture Size: 5-0 Number of Sutures: 8 Layer Closure?: 1 Number Deep Layer Sutures: 0 Progress Area anesthetized with 2 mL of 2% lidocaine without epinephrine. Wound then scrubbed with chlorhexidine/saline solution then irrigated with 30 mL of the same. Wound then closed with 8 simple sutures size 5-0 Prolene. Covered with gauze. Progress/Results/Core Measures Results/Orders My Orders Orders - SAM TAYLOR APRN Lidocaine 2% Injection 20 Ml (Xylocaine (06/20/17 16:00) Dipht,Pertuss(Acell),Tet Adult (Boostrix (06/20/17 16:00) Medications Given in ED Current Medications Medications Dose Ordered Sig/Izabel Route Start Time Stop Time Status Last Admin Dose Admin Diphtheria/ Tetanus/Acell Pertussis 0.5 ml ONCE ONCE IM 06/20/17 16:00 06/20/17 16:01 DC 06/20/17 16:04 0.5 ML Lidocaine HCl 20 ml ONCE ONCE INJ 06/20/17 16:00 06/20/17 16:01 DC 06/20/17 16:07 20 ML Vital Signs/I&O Vital Sign - Last 12Hours 06/20/17 15:54 Temp 98.0 Pulse 90 Resp 22 B/P (MAP) 136/98 (111) Pulse Ox 93 O2 Delivery Room Air Blood Pressure Mean: 111 Departure Impression Impression: Primary Impression: Wrist laceration Disposition: 01 HOME, SELF-CARE Condition: Stable Departure-Patient Inst. Decision time for Depature: 16:20 Referrals: CASSIE GORDON MD (PCP/Family) Primary Care Physician Patient Instructions: Laceration Repair With Stitches (DC) Add. Discharge Instructions: 1. Return to ER for any concerns such as fevers, redness or swelling. 2. Return to the emergency room otherwise 7-10 days to have the stitches removed. Keep this clean dry and covered for the next 48 hours. After this then you may remove the bandage and shower allowing water to run over this however, do not soak this in water such as a hot tub, dish sink or swimming pool. All discharge instructions reviewed with patient and/or family. Voiced understanding. SAM TAYLOR APRN Jun 20, 2017 16:05
[2017-06-20 16:36] VITALS: BP 136/98
== END 2017-06-20 16:35 | disposition home or self-care (01) ==
LOC: EDUNIT# 15:35 → ER 15:36
DX: S61.512A Laceration without foreign body of left wrist, initial encounter (principal); I25.10 Atherosclerotic heart disease of native coronary artery without angina pectoris; Z95.5 Presence of coronary angioplasty implant and graft; Z23 Encounter for immunization; Z79.82 Long term (current) use of aspirin; W26.0XXA Contact with knife, initial encounter
CPT/HCPCS: 90471; 90715

== ENCOUNTER 2017-06-25 17:46 | Emergency (ER) | payer MEDICARE, OTHER ==
[~2017-06-25] VITALS: Ht 177.8 cm; Wt 93.4 kg
--- NOTE | 2017-06-25 19:21 | ED Upper Extremity ---
General Chief Complaint: Laceration Stated Complaint: WOUND CARE Nursing Triage Note: PT HERE WITH C/O STITCHES COMING OUT. PT REPORTS CHANGING HIS BANDAGE AND PULLING OUT THE STITCHES. History of Present Illness Date Seen by Provider: Jun 25, 2017 Time Seen by Provider: 19:15 Initial Comments 82-year-old male presents with wound concerns, he reports he was taking the scab off of the wound to his wrist and 2 of the sutures came out. There is a slight dehiscent in the wound noted. Pain/Injury Location: left wrist Method of Injury: incised Allergies and Home Medications Allergies Coded Allergies: NKANo Known Allergies (Verified Allergy, Unknown, 01/17/06) Home Medications Allopurinol 300 Mg Tab, 300 MG PO DAILY, (Reported) Amlodipine Besylate 10 Mg Tablet, 10 MG PO DAILY, (Reported) Aspirin 81 Mg Tablet.dr, 81 MG PO DAILY, (Reported) Atorvastatin Calcium 40 Mg Tablet, 40 MG PO HS, (Reported) Cholecalciferol (Vitamin D3) 2,000 Unit Tablet, 2,000 UNIT PO DAILY, (Reported) Cyclobenzaprine Hcl 5 Mg Tablet, 5 MG PO DAILY, (Reported) Docusate Sodium 100 Mg Capsule, 100 MG PO BID, (Reported) Famotidine 20 Mg Tablet, 20 MG PO DAILY, (Reported) Folic Acid 0.4 Mg Tablet, 400 MCG PO DAILY, (Reported) Irbesartan 300 Mg Tablet, 300 MG PO DAILY, (Reported) Isosorbide Mononitrate 30 Mg Tablet, 30 MG PO DAILY, (Reported) Meloxicam 15 Mg Tablet, 15 MG PO DAILY, (Reported) Metoprolol Succinate 25 Mg Tab.sr.24h, 25 MG PO DAILY, (Reported) Mu-Vits-Min Th/Lycopene/Lutein 1 Each Tablet, 1 TAB PO DAILY, (Reported) [place]-3 Fatty Acids/Fish Oil 1 Each Capsule, 1,000 MG PO DAILY, (Reported) Terazosin Hcl 2 Mg Capsule, 2 MG PO DAILY, (Reported) [Testosterone] , INJ MONTHLY, (Reported) GETS AT DR. MOON OFFICE THE Monday OF EVERY MONTH Patient Home Medication List Home Medication List Reviewed: Yes Constitutional: no symptoms reported, see HPI Skin: see HPI, other (slight wound dehiscence left wrist) All Other Systems Reviewed Negative Unless Noted: Yes Past Qlnpleb-Sftlaa-Xckzik Hx Patient Social History Alcohol Use: Denies Use Recreational Drug Use: No Smoking Status: Never a Smoker Immunizations Up To Date Date of Influenza Vaccine: Mar 17, 2015 Surgeries History of Surgeries: Yes (RIGHT KNEE SURGERY) Surgeries: Cardiac, Coronary Stent, Orthopedic Respiratory History of Respiratory Disorde: No Cardiovascular History of Cardiac Disorders: Yes (STENTS 9 YRS.AGO) Cardiac Disorders: Coronary Artery Disease Neurological History of Neurological Disord: No Gastrointestinal History of Gastrointestinal Di: No Musculoskeletal History of Musculoskeletal Dis: Yes (RIGHT KNEE SURGERY) Musculoskeletal Disorders: Arthritis Endocrine History of Endocrine Disorders: No Cancer History of Cancer: No Psychosocial History of Psychiatric Problem: No Integumentary History of Skin or Integumenta: No Blood Transfusions History of Blood Disorders: No Reviewed Nursing Assessment Reviewed/Agree w Nursing PMH: Yes Physical Exam Vital Signs Vital Signs - First Documented 06/25/17 06/25/17 19:09 19:25 Temp 97.8 Pulse 70 Resp 18 B/P (MAP) 123/75 Pulse Ox 99 O2 Delivery Room Air Capillary Refill : General Appearance: WD/WN, no apparent distress Wrist: Yes normal ROM, Yes soft tissue tenderness (left wrist) Skin: normal color, warm/dry, other (middle sutures from left wrist laceration no longer present. No active drainage or bleeding, erythema or warmth noted. Area cleaned with sterile saline, Steri-Strips and Mastisol used for wound closure.) Laceration Repair : Suture Size: 5-0 Progress/Results/Core Measures Results/Orders Vital Signs/I&O Vital Sign - Last 12Hours 06/25/17 06/25/17 19:09 19:25 Temp 97.8 Pulse 70 70 Resp 18 18 B/P (MAP) 123/75 123/75 Pulse Ox 99 99 O2 Delivery Room Air Room Air Departure Impression Impression: Primary Impression: Visit for wound check Disposition: HOME, SELF-CARE Condition: Stable Departure-Patient Inst. Decision time for Depature: 19:20 Referrals: CASSIE GORDON MD (PCP/Family) Primary Care Physician Patient Instructions: Laceration Repair With Stitches (DC) Add. Discharge Instructions: Leave Steri-Strips in place. Keep wound covered with Band-Aid. Return in 4-5 days for suture removal. Return to emergency department for new problems or concerns. All discharge instructions reviewed with patient and/or family. Voiced understanding. GARCÍA MCKINNEY Jun 25, 2017 19:21
[2017-06-25 19:25] VITALS: BP 123/75
== END 2017-06-25 19:26 | disposition home or self-care (01) ==
LOC: EDUNIT# 17:46 → ER 17:47
DX: S61.512D Laceration without foreign body of left wrist, subsequent encounter (principal); I25.10 Atherosclerotic heart disease of native coronary artery without angina pectoris; Z98.890 Other specified postprocedural states; Z95.5 Presence of coronary angioplasty implant and graft; Z79.82 Long term (current) use of aspirin; X58.XXXD Exposure to other specified factors, subsequent encounter
CPT/HCPCS: 12011

== ENCOUNTER 2017-06-30 13:06 | Emergency (ER) | payer MEDICARE, OTHER ==
[~2017-06-30] VITALS: Ht 177.8 cm; Wt 93.4 kg
--- OUTSIDE RECORDS SUMMARY | 2017-06-30 13:19 | XMS REPORT | Continuity of Care Document ---
Author Author [facility] Organization [facility] Address Unknown Phone Unavailable Allergies Active Description [...] Ot V43.65 KNEE JOINT REPLACEMENT STATUS 08/26/2016 DNONA NICHOLAS MD Ot V58.62 ENCOUNT FOR LONG-TERM(CURRENT) [...] DISRD OF BONE DENSITY AND STRUCTURE, 10/10/2016 CASISE GORDON MD Ot F17.210 NICOTINE DEPENDENCE, CIGARETTES, UNCOMPL 10/10/2016 HEIDI GUDINO, CASSIE Ta Ot R06.00 DYSPNEA, UNSPECIFIED 10/25/2016 NILSON NUNES [employer] Ot G47.34 IDIO SLEEP RELATED NONOBSTRUCTIVE ALVEOL 10/25/2016 NILSON NUNES [employer] Ot K76.0 FATTY (CHANGE OF) LIVER, NOT ELSEWHERE C 10/25/2016 NILSON NUNES [employer] Ot K80.20 CALCULUS OF GALLBLADDER W/O CHOLECYSTITI 10/25/2016 NILSON NUNES [employer] Ot R06.00 DYSPNEA, UNSPECIFIED 10/26/2016 NILSON NUNES [employer] Ot G47.10 HYPERSOMNIA, UNSPECIFIED 11/03/2016 NILSON NUNES [employer] Ot G47.10 HYPERSOMNIA, UNSPECIFIED 11/08/2016 NILSON NUNES E [employer] Ot G47.10 HYPERSOMNIA, UNSPECIFIED 11/10/2016 NILSON NUNES [employer] Ot G47.10 HYPERSOMNIA, UNSPECIFIED 11/11/2016 NILSON NUNES [employer] Ot G47.34 IDIO SLEEP RELATED NONOBSTRUCTIVE ALVEOL 11/11/2016 NILSON NUNES [employer] Ot G47.50 PARASOMNIA, UNSPECIFIED 11/11/2016 NILSON NUNES [employer] Ot G47.34 IDIO SLEEP RELATED NONOBSTRUCTIVE ALVEOL 11/11/2016 NILSON NUNES [employer] Ot G47.50 PARASOMNIA, UNSPECIFIED 11/12/2016 HEIDI GUDINO, CASSIE Ta Ot F17.210 NICOTINE DEPENDENCE, CIGARETTES, UNCOMPL 11/12/2016 HEIDI GUDINO, CASSIE Ta Ot R06.00 DYSPNEA, UNSPECIFIED 11/15/2016 NILSON NUNES [employer] Ot G47.34 IDIO SLEEP RELATED NONOBSTRUCTIVE ALVEOL 11/15/2016 NILSON NUNES [employer] Ot K76.0 FATTY (CHANGE OF) LIVER, NOT ELSEWHERE C 11/15/2016 NILSON NUNES [employer] Ot K80.20 CALCULUS OF GALLBLADDER W/O CHOLECYSTITI 11/15/2016 NILSON NUNES [employer] Ot R06.00 DYSPNEA, UNSPECIFIED 11/16/2016 NILSON NUNES [employer] Ot G47.34 IDIO SLEEP RELATED NONOBSTRUCTIVE ALVEOL 11/16/2016 NILSON NUNES APRN Ot G47.50 PARASOMNIA, UNSPECIFIED 01/03/2017 [...] 01/03/2017 HEIDI GUDINO, CASSIE Ta Ot M85.872 [facility] DISRD OF BONE DENSITY AND STRUCTURE, 01/03/2017 CASSIE GORDON MD Ot F17.210 NICOTINE DEPENDENCE, CIGARETTES, UNCOMPL 01/03/2017 CASSIE GORDON MD Ot R06.00 DYSPNEA, UNSPECIFIED 01/03/2017 NILSON NUNES APRN Ot G47.34 IDIO SLEEP RELATED NONOBSTRUCTIVE ALVEOL 01/03/2017 NILSON NUNES APRN Ot K76.0 FATTY (CHANGE OF) LIVER, NOT ELSEWHERE C 01/03/2017 NILSON NUNES APRN Ot K80.20 CALCULUS OF GALLBLADDER W/O CHOLECYSTITI 01/03/2017 NILSON NUNES APRN Ot R06.00 DYSPNEA, UNSPECIFIED 06/22/2017 SAM TAYLOR APRN Ot I25.10 ATHSCL HEART DISEASE OF [place] CORONARY 06/22/2017 SAM TAYLOR APRN Ot S61.512A LACERATION WITHOUT FOREIGN BODY OF LEFT 06/22/2017 SAM TAYLOR APRN Ot W26.0XXA CONTACT WITH KNIFE, INITIAL ENCOUNTER 06/22/2017 SAM TAYLOR APRN Ot Z23 ENCOUNTER FOR IMMUNIZATION 06/22/2017 SAM TAYLOR APRN Ot Z79.82 LIBRARY SERVICES DEAN (CURRENT) USE OF ASPIRIN 06/22/2017 SAM TAYLOR APRN Ot Z95.5 PRESENCE OF CORONARY ANGIOPLASTY IMPLANT 06/27/2017 GARCÍA MCKINNEY Ot I25.10 ATHSCL HEART DISEASE OF [place] CORONARY 06/27/2017 GARCÍA MCKINNEY Ot S61.512D LACERATION WITHOUT FOREIGN BODY OF LEFT 06/27/2017 GARCÍA MCKINNEYP Ot X58.XXXD EXPOSURE TO OTHER SPECIFIED FACTORS, SUB 06/27/2017 GARCÍA MCKINNEYP Ot Z79.82 LIBRARY SERVICES DEAN (CURRENT) USE OF ASPIRIN 06/27/2017 GARCÍA MCKINNEYP Ot Z95.5 PRESENCE OF CORONARY ANGIOPLASTY IMPLANT 06/27/2017 GARCÍA MCKINNEYP Ot Z98.890 OTHER SPECIFIED POSTPROCEDURAL STATES Procedures There is no data. Results There is no data. Encounters ACCT No. Visit Date/Time Discharge Status Pt. 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 [id number] 09/08/2016 09:47:00 09/08/2016 23:59:59 CLS Outpatient CASSIE GORDON MD [facility] RAD OSTEOPENIA [id number] 08/26/2016 13:27:00 08/26/2016 23:59:59 CLS Outpatient CASSIE GORDON MD [facility] RT TOBACCO USE [id number] 12/09/2015 10:21:00 12/09/2015 23:59:59 CLS Outpatient CASSIE GORDON MD [facility] RAD DYSPNEA [id number] 05/25/2015 07:19:00 05/25/2015 08:31:00 DIS Emergency KIMBERLYN DO WEN K [facility] ER CONSTIPATION/ABD PAIN [id number] 05/19/2014 08:52:00 05/19/2014 23:59:59 CLS Outpatient DONNA NICHOLAS MD [facility] IV ANTIBIOTIC, KNEE REPLACEMENT [id number] 05/15/2014 08:15:00 05/15/2014 23:59:59 CLS Outpatient DONNA NICHOLAS MD [facility] IV ANTIBIOTICS,S/P KNEE REPLACEMENT [id number] 05/12/2014 08:10:00 05/12/2014 23:59:59 CLS Outpatient RUDY BERG MD [facility] S/P (L) TKA, IV ANTIBIOTICS [id number] 05/06/2014 20:27:00 05/06/2014 23:59:59 CLS Outpatient DONNA NICHOLAS MD [facility] IV ANTIBIOTIC THERAPY, S/ P KNEE REPLACEMENT [id number] 12/26/2012 08:28:00 12/26/2012 12:40:00 DIS Outpatient BRITTANI MARCUM MD [facility] SDC SCREENING [id number] 12/20/2012 07:11:00 12/20/2012 23:59:59 CLS Outpatient BRITTANI MARCUM MD [facility] PREOP SCREENING [id number] 11/11/2012 14:54:00 11/11/2012 23:59:59 CLS Emergency [id number] 06/30/2017 13:08:00 ACT Emergency BARRY GUDINO, FRANCIS Lopez [facility] ER SUTURE REMOVAL [id number] 03/28/2012 09:19:00 Document Registration
[2017-06-30 13:20] VITALS: BP 0/0
== END 2017-06-30 13:20 | disposition home or self-care (01) ==
LOC: EDUNIT# 13:06 → ER 13:08
DX: Z48.02 Encounter for removal of sutures (principal)

== ENCOUNTER 2018-01-31 06:33 | Outpatient (CLI) | payer MEDICARE, OTHER ==
[~2018-01-31] VITALS: Ht 177.8 cm; Wt 89.8 kg
[2018-01-31] MEDS ORDERED: ASPI-999 PO (14:44)
[2018-01-31] MEDS ORDERED: TERA2CAP4 PO (14:44)
[2018-01-31] MEDS ORDERED: ISOS30TA3 PO (14:44)
[2018-01-31] MEDS ORDERED: CALC-857 PO (14:44)
[2018-01-31] MEDS ORDERED: METO-387 PO (14:44)
[2018-01-31] MEDS ORDERED: UBID1CAP53 PO (14:44)
[2018-01-31] MEDS ORDERED: IRBE300T18 PO (14:44)
[2018-01-31] MEDS ORDERED: AMLO10TA6 PO (14:44)
[2018-01-31] MEDS ORDERED: CYCL5TAB PO (14:44)
[2018-01-31] MEDS ORDERED: FAMO20TA3 PO (14:44)
[2018-01-31] MEDS ORDERED: ALLO300T2 PO (14:44)
[2018-01-31] MEDS ORDERED: MELO15TA39 PO (14:44)
[2018-01-31] MEDS ORDERED: ATOR40TA70 PO (14:44)
[2018-01-31] MEDS ORDERED: DOCU100C37 PO (14:44)
== END 2018-01-31 14:50 | disposition home or self-care (01) ==
LOC: PREOP 06:33
PROVIDERS: ATTEND Specialist
DX: Z01.818 Encounter for other preprocedural examination (principal)

== ENCOUNTER 2018-02-02 09:02 | Day surgery (SDC) | payer MEDICARE, OTHER ==
[~2018-02-02] VITALS: Ht 177.8 cm; Wt 89.8 kg
[~2018-02-02 09:02] MED LIST changes: +AMLO10TA6 PO; +ASPI-999 PO; +ATOR40TA70 PO; +CALC-857 PO; +CYCL5TAB PO; +DOCU100C37 PO; +FAMO20TA3 PO; +IRBE300T18 PO; +ISOS30TA3 PO; +MELO15TA39 PO; +METO-387 PO; +TERA2CAP4 PO; +UBID1CAP53 PO; +acetaZOLAMIDE ER 500 MG CAP (DIAMOX SEQUELS) PO ONE
[2018-02-02 09:10] VITALS: BP 140/84
[2018-02-02] MEDS ORDERED: POVIDONE (BETADINE) OPHTH SOLN 5% 30 ML OP ONE (09:15)
[2018-02-02] MEDS ORDERED: TIMOLOL MALEATE 0.5% 5 ML (TIMOPTIC) BTL OU PRN (09:15)
[2018-02-02] MEDS ORDERED: LIDOCAINE PF 1% 2 ML AMP IR PRN (09:15)
[2018-02-02] MEDS ORDERED: EPINEPHrine INJECTION 1 MG/ML AMP INJ ONE (09:15)
[2018-02-02] MEDS ORDERED: BSS 15 ML IR PRN (09:15)
[2018-02-02] MEDS ORDERED: MOXIFLOXACIN OPHTH SOLN 5 MG/ML 0.3 ML SYRINGE OP ONE (09:15)
[2018-02-02] MEDS ORDERED: MIDAZOLAM 2 MG/2 ML (VERSED) VIAL ONE (09:20)
[2018-02-02] MEDS: TETRACAINE 0.5% OPHTH SOLN 4 ML BTL (SINGLE DOSE ONLY) OU PRN ×4 (09:22→09:32)
[2018-02-02] MEDS: CYCLOPENTOLATE 1% (CYCLOGYL) 2 ML DROPS OP SCH ×3 (09:25→09:32)
[2018-02-02] MEDS: PHENYLEPHRINE 10% OPHTH (NEO-SYN) 5 ML BTL OU SCH ×3 (09:25→09:32)
--- NOTE | 2018-02-02 09:44 | Ophthalmologist Pre-Op Note ---
Pre-Operative Progress Note H&P Reviewed The H&P was reviewed, patient examined and no changes noted. Date H&P Reviewed: Feb 02, 2018 Time H&P Reviewed: 09:44 Pre-Op Dx Cataract, Left Eye BESS HARMAN MD Feb 02, 2018 09:44
--- NOTE | 2018-02-02 10:06 | Ophthalmology Operative Report ---
Cataract removal/placement IOL PREOPERATIVE DIAGNOSIS: Cataract Left Eye POSTOPERATIVE DIAGNOSIS: Cataract Left Eye PROCEDURE: Cataract removal and placement of posterior chamber implant, left eye SURGEON: Napoleon Harman ANESTHESIA: Topical with sedation COMPLICATIONS: None ESTIMATED BLOOD LOSS: Minimal DESCRIPTION OF PROCEDURE: After proper informed consent was obtained, the patient, a 82 male, was taken to the Operating Room and the left eye was anesthetized with tetracaine. The left eye was then prepped and draped in the usual manner. A wire lid speculum was placed. A paracentesis was made at the left hand position. Preservative free lidocaine was injected into the anterior chamber followed by viscoelastic. A clear corneal incision was made in the temporal position. A capsulorrhexis was preformed and the central nuclear and cortical material were removed. The posterior capsule was polished and an Estrada 28.0 [id number] was placed into the capsular bag. The residual viscoelastic was aspirated and balanced saline solution was injected into the anterior chamber. Moxifloxacin was injected into the anterior chamber. The wound was checked and found to be water tight. The patient tolerated the procedure well without complications. NAPOLEON HARMAN MD Feb 02, 2018 10:06
[2018-02-02 10:15] VITALS: BP 126/80
--- NOTE | 2018-02-02 11:35 | Anesthesia-General Post-Op ---
MAC Patient Condition Mental Status/LOC: Same as Preop Cardiovascular: Satisfactory Nausea/Vomiting: Absent Respiratory: Satisfactory Pain: Controlled Complications: Absent Post Op Complications Complications None Follow Up Care/Instructions Patient Instructions None needed. Anesthesiology Discharge Order Discharge Order Patient is doing well, no complaints, stable vital signs, no apparent adverse anesthesia problems. No complications reported per nursing. UMESH HARRIS CRNA Feb 02, 2018 11:35
== END 2018-02-02 10:15 | disposition home or self-care (01) ==
LOC: SDC 09:02
PROVIDERS: ATTEND Specialist
DX: H25.12 Age-related nuclear cataract, left eye (principal); I10 Essential (primary) hypertension; Z79.82 Long term (current) use of aspirin; Z79.899 Other long term (current) drug therapy; Z95.5 Presence of coronary angioplasty implant and graft; Z87.891 Personal history of nicotine dependence

== ENCOUNTER 2018-02-09 05:37 | Outpatient (CLI) | payer MEDICARE, OTHER ==
[~2018-02-09] VITALS: Ht 177.8 cm; Wt 89.8 kg
[~2018-02-09 05:37] MED LIST changes: -acetaZOLAMIDE ER 500 MG CAP (DIAMOX SEQUELS) PO ONE
== END 2018-02-09 09:16 | disposition home or self-care (01) ==
LOC: PREOP 05:37
PROVIDERS: ATTEND Specialist
DX: Z01.818 Encounter for other preprocedural examination (principal)

== ENCOUNTER 2018-02-13 07:50 | Day surgery (SDC) | payer MEDICARE, OTHER ==
[~2018-02-13] VITALS: Ht 177.8 cm; Wt 89.8 kg
--- OUTSIDE RECORDS SUMMARY | 2018-02-13 07:57 | XMS REPORT | Continuity of Care Document ---
Author Author [facility] Organization [facility] Address Unknown Phone Unavailable Allergies Active Description Code Type Severity Reaction Onset Reported/Identified Relationship to Patient Clinical Status Yes NKANo Known Allergies NKA Miscellaneous Allergy Unknown N/A 01/17/2006 Yes No Known Drug Allergies [id number] Drug Allergy Unknown N/A 01/31/2018 Medications There is no data. 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 12/26/2012 BRITTANI MARCUM MD, Ot 562.10 DIVERTICULOSIS COLON (W/O MENT OF [...] 719.41 JOINT PAIN- SHLDER 12/09/2015 BRITTANI MARCUM MD, Ot V72.84 EXAM PRE-OPERATIVE NOS 12/09/2015 DONNA [...] 719.41 JOINT PAIN- SHLDER 12/09/2015 BRITTANI MARCUM MD, Ot V72.84 EXAM PRE-OPERATIVE NOS 12/09/2015 DONNA [...] V58.83 ENCOUNTER FOR THERAPEUTIC DRUG MONITORIN 12/09/2015 BLACK MD, DONNA L Ot V43.65 KNEE JOINT REPLACEMENT STATUS 12/09/2015 [...] 719.41 JOINT PAIN- SHLDER 08/26/2016 BRITTANI MARCUM MD Ot V72.84 EXAM PRE-OPERATIVE NOS 08/26/2016 DONNA [...] FOR THERAPEUTIC DRUG MONITORIN 08/26/2016 DONNA NICHOLAS MD, Ot V43.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 JOINT REPLACEMENT STATUS 08/26/2016 DONNA NICHOLAS MD Ot V58.62 ENCOUNT FOR LONG-TERM(CURRENT) USE OF AN 08/26/2016 DONNA NICHOLAS MD Ot V58.83 ENCOUNTER FOR THERAPEUTIC DRUG MONITORIN 08/26/2016 CASSIE GORDON MD Ot R06.09 OTHER FORMS OF DYSPNEA 08/26/2016 CASSIE GORDON MD Ot 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, 08/26/2016 CASSIE GORDON MD, Ot 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, 08/29/2016 CASSIE GORDON MD Ot F17.210 NICOTINE DEPENDENCE, CIGARETTES, UNCOMPL 08/29/2016 CASSIE GORDON MD Ot R06.00 DYSPNEA, UNSPECIFIED 09/07/2016 CASSIE GODRON MD, Ot 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, 09/08/2016 Ot 719.41 JOINT PAIN- SHLDER 09/08/2016 TRIXIE GUDINO, BRITTANI Ot V72.84 EXAM PRE-OPERATIVE NOS 09/08/2016 DONNA NICHOLAS MD Ot V43.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 JOINT REPLACEMENT STATUS 09/08/2016 DONNA NICHOLAS MD Ot V58.62 ENCOUNT FOR LONG-TERM(CURRENT) USE OF AN 09/08/2016 DONNA NICHOLAS MD Ot V58.83 ENCOUNTER FOR THERAPEUTIC DRUG MONITORIN 09/08/2016 RUDY BERG MD Ot V43.65 KNEE JOINT REPLACEMENT STATUS 09/08/2016 RUDY BERG MD Ot V58.62 ENCOUNT FOR LONG-TERM(CURRENT) USE OF AN 09/08/2016 RUDY BERG MD Ot V58.83 ENCOUNTER FOR [...] OTHER FORMS OF DYSPNEA 09/08/2016 CASSIE GORDON MD, Ot 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, 09/08/2016 CASSIE GORDON MD Ot F17.210 NICOTINE DEPENDENCE, CIGARETTES, UNCOMPL 09/08/2016 CASSIE GORDON MD Ot R06.00 DYSPNEA, UNSPECIFIED 09/13/2016 CASSIE GORDON MD Ot 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, 09/13/2016 CASSIE GORDON MD, Ot 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, 09/16/2016 CASSIE GORDON MD, Ot 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, 09/29/2016 CASSIE GORDON MD, Ot 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, 10/10/2016 HEIDI GUDINO, CASSIE Ta Ot F17.210 NICOTINE DEPENDENCE, CIGARETTES, UNCOMPL 10/10/2016 HEIDI UGDINO, CASSIE Ta Ot R06.00 DYSPNEA, UNSPECIFIED 10/25/2016 NILSON NUNES GARBAGE STOKER Ot G47.34 IDIO SLEEP RELATED NONOBSTRUCTIVE ALVEOL 10/25/2016 NILSON NUNES GARBAGE STOKER Ot K76.0 FATTY (CHANGE OF) LIVER, NOT ELSEWHERE C 10/25/2016 NILSON NUNES GARBAGE STOKER Ot K80.20 CALCULUS OF GALLBLADDER W/O CHOLECYSTITI 10/25/2016 NILSON NUNES GARBAGE STOKER Ot R06.00 DYSPNEA, UNSPECIFIED 10/26/2016 NILSON NUNES GARBAGE STOKER Ot G47.10 HYPERSOMNIA, UNSPECIFIED 11/03/2016 NILSON NUNES GARBAGE STOKER Ot G47.10 HYPERSOMNIA, UNSPECIFIED 11/08/2016 NILSON NUNES GARBAGE STOKER Ot G47.10 HYPERSOMNIA, UNSPECIFIED 11/10/2016 NILSON NUNES GARBAGE STOKER Ot G47.10 HYPERSOMNIA, UNSPECIFIED 11/11/2016 NILSON NUNES GARBAGE STOKER Ot G47.34 IDIO SLEEP RELATED NONOBSTRUCTIVE ALVEOL 11/11/2016 NILSON NUNES GARBAGE STOKER Ot G47.50 PARASOMNIA, UNSPECIFIED 11/11/2016 NILSON NUNES GARBAGE STOKER Ot G47.34 IDIO SLEEP RELATED NONOBSTRUCTIVE ALVEOL 11/11/2016 NILSON NUNES GARBAGE STOKER Ot G47.50 PARASOMNIA, UNSPECIFIED 11/12/2016 CASSIE GORDON MD Ot F17.210 NICOTINE DEPENDENCE, CIGARETTES, UNCOMPL 11/12/2016 CASSIE GORDON MD Ot R06.00 DYSPNEA, UNSPECIFIED 11/15/2016 NILSON NUNES GARBAGE STOKER Ot G47.34 IDIO SLEEP RELATED NONOBSTRUCTIVE ALVEOL 11/15/2016 NILSON NUNES GARBAGE STOKER Ot K76.0 FATTY (CHANGE OF) LIVER, NOT ELSEWHERE C 11/15/2016 NILSON NUNES GARBAGE STOKER Ot K80.20 CALCULUS OF GALLBLADDER W/O CHOLECYSTITI 11/15/2016 NILSON NUNES GARBAGE STOKER Ot R06.00 DYSPNEA, UNSPECIFIED 11/16/2016 NILSON NNUES APRN Ot G47.34 IDIO SLEEP RELATED NONOBSTRUCTIVE ALVEOL 11/16/2016 NILSON NUNES APRN Ot G47.50 PARASOMNIA, UNSPECIFIED 01/03/2017 Ot 719.41 JOINT PAIN- SHLDER 01/03/2017 TRIXIE GUDINO, BRITTANI Ot V72.84 EXAM PRE-OPERATIVE NOS 01/03/2017 DONNA NICHOLAS MD Ot V43.65 KNEE [...] 01/03/2017 HEIDI GUDINO, CASSIE Ta Ot 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, 01/03/2017 CASSIE GORDON MD Ot F17.210 NICOTINE DEPENDENCE, CIGARETTES, UNCOMPL 01/03/2017 CASSIE GORDON MD Ot R06.00 DYSPNEA, UNSPECIFIED 01/03/2017 NILSON NUNES APRN Ot G47.34 IDIO SLEEP RELATED NONOBSTRUCTIVE ALVEOL 01/03/2017 NILSON NUNES APRN Ot K76.0 FATTY (CHANGE OF) LIVER, NOT ELSEWHERE C 01/03/2017 NILSON NUNES GARBAGE STOKER Ot K80.20 CALCULUS OF GALLBLADDER W/O CHOLECYSTITI 01/03/2017 NILSON NUNES GARBAGE STOKER Ot R06.00 DYSPNEA, UNSPECIFIED 06/20/2017 SAM TAYLOR APRN Ot I25.10 ATHSCL HEART DISEASE OF [place] CORONARY 06/20/2017 SAM TAYLOR APRN Ot S61.512A LACERATION WITHOUT FOREIGN BODY OF LEFT 06/20/2017 SAM TAYLOR APRN Ot W26.0XXA CONTACT WITH KNIFE, INITIAL ENCOUNTER 06/20/2017 SAM TAYLOR APRN Ot Z23 ENCOUNTER FOR IMMUNIZATION 06/20/2017 SAM TAYLOR APRN Ot Z79.82 JAIL (CURRENT) USE OF ASPIRIN 06/20/2017 SAM TAYLOR APRN Ot Z95.5 PRESENCE OF CORONARY ANGIOPLASTY IMPLANT 06/22/2017 SAM TAYLOR APRN Ot I25.10 ATHSCL HEART DISEASE OF [place] CORONARY 06/22/2017 SAM TAYLOR APRN Ot S61.512A LACERATION WITHOUT FOREIGN BODY OF LEFT 06/22/2017 SAM TAYLOR APRN Ot W26.0XXA CONTACT WITH KNIFE, INITIAL ENCOUNTER 06/22/2017 SAM TAYLOR APRN Ot Z23 ENCOUNTER FOR IMMUNIZATION 06/22/2017 SAM TAYLOR APRN Ot Z79.82 SHAKER REPAIRER (CURRENT) USE OF ASPIRIN 06/22/2017 SAM TAYLOR APRN Ot Z95.5 PRESENCE OF CORONARY ANGIOPLASTY IMPLANT 06/25/2017 GARCÍA MCKINNEYP Ot I25.10 ATHSCL HEART DISEASE OF [place] CORONARY 06/25/2017 GARCÍA MCKINNEYP Ot S61.512D LACERATION WITHOUT FOREIGN BODY OF LEFT 06/25/2017 GARCÍA MCKINNEYP Ot X58.XXXD EXPOSURE TO OTHER SPECIFIED FACTORS, SUB 06/25/2017 GARCÍA MCKINNEYP Ot Z79.82 JAIL (CURRENT) USE OF ASPIRIN 06/25/2017 GARCÍA MCKINNEY WASHCLOTH FOLDER Ot Z95.5 PRESENCE OF CORONARY ANGIOPLASTY IMPLANT 06/25/2017 GARCÍA MCKINNEYP Ot Z98.890 OTHER SPECIFIED POSTPROCEDURAL STATES 06/27/2017 GARCÍA MCKINNEYP Ot I25.10 ATHSCL HEART DISEASE OF [place] CORONARY 06/27/2017 GARCÍA MCKINNEY Ot S61.512D LACERATION WITHOUT FOREIGN BODY OF LEFT 06/27/2017 GARCÍA MCKINNEY Ot X58.XXXD EXPOSURE TO OTHER SPECIFIED FACTORS, SUB 06/27/2017 GARCÍA MCKINNEY Ot Z79.82 SHAKER REPAIRER (CURRENT) USE OF ASPIRIN 06/27/2017 GARCÍA MCKINNEY Ot Z95.5 PRESENCE OF CORONARY ANGIOPLASTY IMPLANT 06/27/2017 GARCÍA MCKINNEY Ot Z98.890 OTHER SPECIFIED POSTPROCEDURAL STATES 06/30/2017 FRANCIS REDDY MD Ot Z48.02 ENCOUNTER FOR REMOVAL OF SUTURES 07/03/2017 FRANCIS REDDY MD Ot Z48.02 ENCOUNTER FOR REMOVAL OF SUTURES 01/31/2018 BRITTANI MARCUM MD Ot V72.84 EXAM PRE-OPERATIVE NOS 01/31/2018 DONNA NICHOLAS MD, Ot V43.65 KNEE JOINT REPLACEMENT STATUS 01/31/2018 DONNA NICHOLAS MD, Ot V58.62 ENCOUNT FOR LONG-TERM(CURRENT) USE OF AN 01/31/2018 DONNA NICHOLAS MD Ot V58.83 ENCOUNTER FOR THERAPEUTIC DRUG MONITORIN 01/31/2018 RUDY BERG MD Ot V43.65 KNEE JOINT REPLACEMENT STATUS 01/31/2018 RUDY BERG MD Ot V58.62 ENCOUNT FOR LONG-TERM(CURRENT) USE OF AN 01/31/2018 RUDY BERG MD Ot V58.83 ENCOUNTER FOR THERAPEUTIC DRUG MONITORIN 01/31/2018 DONNA NICHOLAS MD Ot V43.65 KNEE JOINT REPLACEMENT STATUS 01/31/2018 DONNA NICHOLAS MD Ot V58.62 ENCOUNT FOR LONG-TERM(CURRENT) USE OF AN 01/31/2018 DONNA NICHOLAS MD Ot V58.83 ENCOUNTER FOR THERAPEUTIC DRUG MONITORIN 01/31/2018 DONNA NICHOLAS MD Ot V43.65 KNEE JOINT REPLACEMENT STATUS 01/31/2018 DONNA NICHOLAS MD, Ot V58.62 ENCOUNT FOR LONG-TERM(CURRENT) USE OF AN 01/31/2018 DONNA NICHOLAS MD, Ot V58.83 ENCOUNTER FOR THERAPEUTIC DRUG MONITORIN 01/31/2018 CASSIE GORDON MD Ot R06.09 OTHER FORMS OF DYSPNEA 01/31/2018 CASSEI GORDON MD Ot M85.872 OT DISRD OF BONE DENSITY AND STRUCTURE, 01/31/2018 HEIDI GUDINO, CASSIE Ta Ot F17.210 NICOTINE DEPENDENCE, CIGARETTES, UNCOMPL 01/31/2018 HEIDI GUDINO, CASSIE Ta Ot R06.00 DYSPNEA, UNSPECIFIED 01/31/2018 NILSON NUNES APRN Ot G47.34 IDIO SLEEP RELATED NONOBSTRUCTIVE ALVEOL 01/31/2018 NILSON NUNES GARBAGE STOKER Ot K76.0 FATTY (CHANGE OF) LIVER, NOT ELSEWHERE C 01/31/2018 NILSON NUNES GARBAGE STOKER Ot K80.20 CALCULUS OF GALLBLADDER W/O CHOLECYSTITI 01/31/2018 NILSON NUNES APRN Ot R06.00 DYSPNEA, UNSPECIFIED 02/01/2018 BESS HARMAN MD Ot Z01.818 ENCOUNTER FOR OTHER PREPROCEDURAL EXAMIN 02/02/2018 BESS HARMAN MD Ot H25.12 AGE-RELATED NUCLEAR CATARACT, LEFT EYE 02/02/2018 BESS HARMAN MD Ot I10 ESSENTIAL (PRIMARY) HYPERTENSION 02/02/2018 BESS HARMAN MD Ot Z79.82 JAIL (CURRENT) USE OF ASPIRIN 02/02/2018 BESS HARMAN MD Ot Z79.899 OTHER SHAKER REPAIRER (CURRENT) DRUG THERAPY 02/02/2018 BESS HARMAN MD Ot Z87.891 PERSONAL HISTORY OF NICOTINE DEPENDENCE 02/02/2018 BESS HARMAN MD Ot Z95.5 PRESENCE OF CORONARY ANGIOPLASTY IMPLANT 02/06/2018 BESS HARMAN MD Ot H25.12 AGE-RELATED NUCLEAR CATARACT, LEFT EYE 02/06/2018 BESS HARMAN MD Ot I10 ESSENTIAL (PRIMARY) HYPERTENSION 02/06/2018 BESS HARMAN MD Ot Z79.82 JAIL (CURRENT) USE OF ASPIRIN 02/06/2018 BESS HARMAN MD Ot Z79.899 OTHER JAIL (CURRENT) DRUG THERAPY 02/06/2018 BESS HARMAN MD Ot Z87.891 PERSONAL HISTORY OF NICOTINE DEPENDENCE 02/06/2018 BESS HARMAN MD Ot Z95.5 PRESENCE OF CORONARY ANGIOPLASTY IMPLANT 02/07/2018 BESS HARMAN MD Ot H25.12 AGE-RELATED NUCLEAR CATARACT, LEFT EYE 02/07/2018 BESS HARMAN MD Ot I10 ESSENTIAL (PRIMARY) HYPERTENSION 02/07/2018 BESS HARMAN MD Ot Z79.82 JAIL (CURRENT) USE OF ASPIRIN 02/07/2018 BESS HARMAN MD Ot Z79.899 OTHER JAIL (CURRENT) DRUG THERAPY 02/07/2018 BESS HARMAN MD Ot Z87.891 PERSONAL HISTORY OF NICOTINE DEPENDENCE 02/07/2018 BESS HARMAN MD Ot Z95.5 PRESENCE OF CORONARY ANGIOPLASTY IMPLANT 02/08/2018 BESS HARMAN MD Ot H25.12 AGE-RELATED NUCLEAR CATARACT, LEFT EYE 02/08/2018 BESS HARMAN MD Ot I10 ESSENTIAL (PRIMARY) HYPERTENSION 02/08/2018 BESS HARMAN MD Ot Z79.82 SHAKER REPAIRER (CURRENT) USE OF ASPIRIN 02/08/2018 BESS HARMAN MD Ot Z79.899 OTHER JAIL (CURRENT) DRUG THERAPY 02/08/2018 BESS HARMAN MD Ot Z87.891 PERSONAL HISTORY OF NICOTINE DEPENDENCE 02/08/2018 BESS HARMAN MD Ot 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 Results There is no data. Encounters ACCT No. Visit Date/Time Discharge Status Pt. Type Provider Facility Loc./Unit Complaint [id number] 02/02/2018 09:02:00 02/02/2018 10:15:00 DIS Outpatient BESS HARMAN MD [facility] SDC CATARACT LEFT [id number] 01/31/2018 06:33:00 01/31/2018 14:50:00 DIS Outpatient BESS HARMAN MD [facility] PREOP CATARACT LEFT [id number] 06/30/2017 13:08:00 06/30/2017 13:20:00 DIS Emergency FRANCIS REDDY MD [facility] ER SUTURE REMOVAL [id number] 06/25/2017 17:47:00 06/25/2017 19:26:00 DIS Emergency GARCÍA MCKINNEY [facility] ER WOUND CARE [id number] 06/20/2017 15:36:00 06/20/2017 16:35:00 DIS Emergency SAM TAYLOR GARBAGE STOKER [facility] ER LEFT WRIST LAC [id number] 11/10/2016 19:50:00 11/11/2016 06:15:00 DIS Outpatient NILSON NUNES APRN [facility] SLEEP G47.10,G47.34 [id number] 10/24/2016 08:28:00 10/24/2016 23:59:59 CLS Outpatient NILSON NUNES APRN [facility] RAD J98.4 RESTRICTIVE LUNG DISEASE [id number] 09/08/2016 09:47:00 09/08/2016 23:59:59 CLS Outpatient CASSIE GORDON MD [facility] RAD OSTEOPENIA [id number] 08/26/2016 13:27:00 08/26/2016 23:59:59 CLS Outpatient CASSIE GORDON MD [facility] RT TOBACCO USE [id number] 12/09/2015 10:21:00 12/09/2015 23:59:59 CLS Outpatient CASSIE GORDON MD [facility] RAD DYSPNEA [id number] 05/25/2015 07:19:00 05/25/2015 08:31:00 DIS Emergency WEN SOFIA DO [facility] ER CONSTIPATION/ABD PAIN [id number] 05/19/2014 08:52:00 05/19/2014 23:59:59 CLS Outpatient DONNA NICHOLAS MD [facility] IV ANTIBIOTIC, KNEE REPLACEMENT [id number] 05/15/2014 08:15:00 05/15/2014 23:59:59 CLS Outpatient DONNA NICHOLAS MD [facility] IV ANTIBIOTICS,S/P KNEE REPLACEMENT [id number] 05/12/2014 08:10:00 05/12/2014 23:59:59 CLS Outpatient RUDY BERG MD [facility] S/P (L) TKA, IV ANTIBIOTICS [id number] 05/06/2014 20:27:00 05/06/2014 23:59:59 CLS Outpatient DONNA NICHOLAS MD [facility] IV ANTIBIOTIC THERAPY, S/ P KNEE REPLACEMENT [id number] 12/26/2012 08:28:00 12/26/2012 12:40:00 DIS Outpatient BRITTANI MARCUM MD [facility] SCREENING [id number] 12/20/2012 07:11:00 12/20/2012 23:59:59 CLS Outpatient BRITTANI MARCUM MD [facility] PREOP SCREENING [id number] 11/11/2012 14:54:00 11/11/2012 23:59:59 CLS Emergency [id number] 02/13/2018 09:30:00 PEN Preadmit BESS HARMAN MD [facility] CATARACT RIGHT EYE [id number] 03/28/2012 09:19:00 Document Registration [id number] 02/06/2017 10:28:11 02/06/2017 23:59:59 CLS Outpatient [id number] 05/24/2014 11:41:42 ACT Document Registration
[2018-02-13] MEDS ORDERED: POVIDONE (BETADINE) OPHTH SOLN 5% 30 ML OP ONE (08:00)
[2018-02-13] MEDS ORDERED: BSS 15 ML IR PRN (08:00)
[2018-02-13] MEDS ORDERED: TIMOLOL MALEATE 0.5% 5 ML (TIMOPTIC) BTL OU PRN (08:00)
[2018-02-13] MEDS ORDERED: EPINEPHrine INJECTION 1 MG/ML AMP INJ ONE (08:00)
[2018-02-13] MEDS ORDERED: MOXIFLOXACIN OPHTH SOLN 5 MG/ML 0.3 ML SYRINGE OP ONE (08:00)
[2018-02-13] MEDS ORDERED: acetaZOLAMIDE ER 500 MG CAP (DIAMOX SEQUELS) PO ONE (08:00)
[2018-02-13] MEDS ORDERED: LIDOCAINE PF 1% 2 ML AMP IR PRN (08:00)
[2018-02-13 08:01] VITALS: BP 137/72
[2018-02-13] MEDS: TETRACAINE 0.5% OPHTH SOLN 4 ML BTL (SINGLE DOSE ONLY) OU PRN ×4 (08:10→08:34)
[2018-02-13] MEDS: PHENYLEPHRINE 10% OPHTH (NEO-SYN) 5 ML BTL OU SCH ×3 (08:19→08:34)
[2018-02-13] MEDS: CYCLOPENTOLATE 1% (CYCLOGYL) 2 ML DROPS OP SCH ×3 (08:19→08:34)
[2018-02-13] MEDS ORDERED: MIDAZOLAM 2 MG/2 ML (VERSED) VIAL ONE (08:28)
--- NOTE | 2018-02-13 08:46 | Ophthalmologist Pre-Op Note ---
Pre-Operative Progress Note H&P Reviewed The H&P was reviewed, patient examined and no changes noted. Date H&P Reviewed: Feb 13, 2018 Time H&P Reviewed: 08:45 Pre-Op Dx Cataract, Right Eye BESS HARMAN MD Feb 13, 2018 08:46
--- NOTE | 2018-02-13 09:07 | Ophthalmology Operative Report ---
Cataract removal/placement IOL PREOPERATIVE DIAGNOSIS: Cataract Right Eye POSTOPERATIVE DIAGNOSIS: Cataract Right Eye PROCEDURE: Cataract removal and placement of posterior chamber implant, right eye SURGEON: Napoleon Harman ANESTHESIA: Topical with sedation COMPLICATIONS: None ESTIMATED BLOOD LOSS: Minimal DESCRIPTION OF PROCEDURE: After proper informed consent was obtained, the patient, a 82 male, was taken to the Operating Room and the right eye was anesthetized with tetracaine. The right eye was then prepped and draped in the usual manner. A wire lid speculum was placed. A paracentesis was made at the left hand position. Preservative free lidocaine was injected into the anterior chamber followed by viscoelastic. A clear corneal incision was made in the temporal position. A capsulorrhexis was preformed and the central nuclear and cortical material were removed. The posterior capsule was polished and Estrada [id number] 28.0 IOL was placed into the capsular bag. The residual viscoelastic was aspirated and balanced saline solution was injected into the anterior chamber. Moxifloxacin was injected into the anterior chamber. The wound was checked and found to be water tight. The patient tolerated the procedure well without complications. NAPOLEON HARMAN MD Feb 13, 2018 09:07
[2018-02-13 09:14] VITALS: BP 155/76
== END 2018-02-13 09:15 | disposition home or self-care (01) ==
LOC: SDC 07:50
PROVIDERS: ATTEND Specialist
DX: H25.11 Age-related nuclear cataract, right eye (principal); I10 Essential (primary) hypertension; Z79.82 Long term (current) use of aspirin; Z79.899 Other long term (current) drug therapy

== ENCOUNTER → 2018-09-17 | Outpatient (CLI) | payer MEDICARE, OTHER ==
[~2018-09-17] MED LIST changes: -AMLO10TA6 PO; +AMLO10TA7 PO; +RT-ALBUTEROL SULF 2.5 MG/3 ML PRE-MIX VIAL INH ONE; +RT-ALBUTEROL SULF 2.5 MG/3 ML PRE-MIX VIAL ONE
== END ==
LOC: RT 09:02
PROVIDERS: ATTEND Nurse Practitioner Family
DX: R06.00 Dyspnea, unspecified (principal)
CPT/HCPCS: 94060; 94726; 94729

== ENCOUNTER → 2018-12-31 | Outpatient (CLI) | payer MEDICARE, OTHER ==
[~2018-12-31] MED LIST changes: +HOLD METFORMIN - RECEIVED CONTRAST 20 ML VIAL IV SCH; +IOHEXOL 350 MG/ML 100 ML (OMNIPAQUE 350) VIAL IV ONE; +NS 100 ML (IVPB) BAG IV ONE; -RT-ALBUTEROL SULF 2.5 MG/3 ML PRE-MIX VIAL INH ONE; -RT-ALBUTEROL SULF 2.5 MG/3 ML PRE-MIX VIAL ONE
[2018-12-31 09:11] LABS: BUN/CREATININE RATIO 13; CREATININE SERUM 1.08 MG/DL (0.60-1.30); GFR ESTIMATED > 60
--- NOTE | 2018-12-31 10:16 | Diagnostic Imaging Report ---
PROCEDURE: CT chest with contrast only. TECHNIQUE: Multiple contiguous axial images were obtained through the chest after administration of intravenous contrast. Auto Exposure Controls were utilized during the CT exam to meet ALARA standards for radiation dose reduction. INDICATION: Restrictive lung disease and dyspnea. Correlation is made with prior CT chest from 10/24/2016. FINDINGS: No axillary lymphadenopathy is detected. No mediastinal or hilar lymphadenopathy is identified. There are coronary arterial calcifications present. No pericardial or pleural fluid is detected. Pulmonary parenchymal evaluation again demonstrates subpleural nodule in right lower lobe, stable and most suggestive of a granuloma. No new pulmonary nodules or masses are seen. No infiltrates are detected. Upper abdomen does demonstrate multiple small stones within the gallbladder. IMPRESSION: 1. Essentially unremarkable CT of the chest. There is no evidence of thoracic lymphadenopathy or pulmonary mass. No acute abnormality is seen. 2. Cholelithiasis. Dictated by: Dictated on workstation # [id number]
== END ==
LOC: RAD 08:38
PROVIDERS: ATTEND Nurse Practitioner Family
DX: K80.20 Calculus of gallbladder without cholecystitis without obstruction (principal); J98.4 Other disorders of lung; J45.909 Unspecified asthma, uncomplicated
CPT/HCPCS: 36415; 71260; 82565; 84520

== ENCOUNTER 2022-04-14 13:39 | Outpatient (RCR) | payer MEDICARE, OTHER ==
[~2022-04-14 13:39] MED LIST changes: +AMLO-251 PO; -AMLO10TA7 PO; -HOLD METFORMIN - RECEIVED CONTRAST 20 ML VIAL IV SCH; -IOHEXOL 350 MG/ML 100 ML (OMNIPAQUE 350) VIAL IV ONE; +IRBE300T17 PO; -IRBE300T18 PO; -ISOS30TA3 PO; +ISOS30TA82 PO; -METO-387 PO; -NS 100 ML (IVPB) BAG IV ONE
== END 2022-04-16 | disposition home or self-care (01) ==
PROVIDERS: ATTEND Family Medicine
DX: R26.89 Other abnormalities of gait and mobility (principal); I10 Essential (primary) hypertension

== ENCOUNTER 2022-05-09 08:05 | Outpatient (RCR) | payer MEDICARE, OTHER | END 2022-05-17 | disposition home or self-care (01) | PROVIDERS: ATTEND Family Medicine | DX: R26.89 Other abnormalities of gait and mobility (principal); I10 Essential (primary) hypertension ==

== ENCOUNTER 2022-06-02 08:10 | Outpatient (RCR) | payer MEDICARE, OTHER ==
[2022-06-11] MEDS ORDERED: DOXY100T2 PO (13:52)
== END 2022-06-14 | disposition home or self-care (01) ==
PROVIDERS: ATTEND Family Medicine
DX: R26.89 Other abnormalities of gait and mobility (principal)

== ENCOUNTER 2022-06-11 10:01 | Emergency (ER) | payer MEDICARE, OTHER ==
[~2022-06-11] VITALS: Ht 170 cm; Wt 88.4 kg
[2022-06-11 11:03] LABS: BASOPHILS % (AUTO) 0 % (0-10); EOSINOPHILS % (AUTO) 0 % (0-10); HEMATOCRIT 41 % (40-54); HEMOGLOBIN 13.8 g/dL (13.3-17.7); LYMPHOCYTES # (AUTO) 0.9 10^3/uL (1.0-4.0); LYMPHOCYTES % (AUTO) 6 % (12-44); MEAN CORPUSCULAR HEMOGLOBIN 32 pg (25-34); MEAN CORPUSCULAR HGB CONC 34 g/dL (32-36); MEAN CORPUSCULAR VOLUME 96 fL (80-99); MEAN PLATELET VOLUME 11.2 fL (9.0-12.2); MONOCYTES # (AUTO) 1.2 10^3/uL (0.0-1.0); MONOCYTES % (AUTO) 8 % (0-12); NEUTROPHILS # (AUTO) 13.3 10^3/uL (1.8-7.8); NEUTROPHILS % (AUTO) 85 % (42-75); PLATELET COUNT 167 10^3/uL (130-400); WHITE BLOOD COUNT 15.5 10^3/uL (4.3-11.0)
[2022-06-11 11:07] LABS: ALBUMIN 3.9 GM/DL (3.2-4.5)
[2022-06-11 11:08] LABS: POTASSIUM 4.4 MMOL/L (3.6-5.0)
[2022-06-11 11:08] LABS: CLARITY,URINE CLEAR; COLOR,URINE ORANGE; GLUCOSE, URINE (UA) 1+ (NEGATIVE); KETONES,URINE NEGATIVE (NEGATIVE); LEUKOCYTE ESTERASE ,URINE NEGATIVE (NEGATIVE); NITRITE,URINE NEGATIVE (NEGATIVE); PROTEIN,URINE 3+ (NEGATIVE)
[2022-06-11 11:09] LABS: CALCIUM 10.3 MG/DL (8.5-10.1)
[2022-06-11 11:10] LABS: TOTAL PROTEIN 7.4 GM/DL (6.4-8.2)
[2022-06-11 11:14] LABS: CREATININE SERUM 1.24 MG/DL (0.60-1.30)
[2022-06-11 11:18] LABS: AMORPHOUS SEDIMENT,UR FEW AMOR URATES /LPF; BACTERIA,URINE TRACE /HPF; BILIRUBIN,URINE 1+ (NEGATIVE); SQUAMOUS EPITHELIAL CELL,UR 0-2 /HPF; WBC,URINE 0-2 /HPF
--- NOTE | 2022-06-11 11:21 | Diagnostic Imaging Report ---
EXAMINATION: Chest 1 view HISTORY: Shortness of breath. Fever. COMPARISON: 12/31/2018. FINDINGS: The lung volumes are normal. No focal consolidation is seen. No large pleural effusion or pneumothorax is seen. The cardiomediastinal silhouette is normal in size and contour. There is calcified aortic atherosclerotic plaque. No acute osseous abnormality is seen. Right shoulder arthroplasty changes are seen. IMPRESSION: 1. No acute pleuroparenchymal process. Dictated by: Dictated on workstation # [id number]
--- NOTE | 2022-06-11 11:22 | Diagnostic Imaging Report ---
CLINICAL HISTORY: Fall 3 weeks ago. Pelvic and left hip pain. COMPARISON: None. TECHNIQUE: 4 views of the pelvis and left hip. FINDINGS: There is no acute fracture or dislocation of the pelvis and left hip. Alignment is anatomic. Degenerative changes are seen in the left hip with joint space narrowing and marginal osteophytes. No suspicious focal osseous lesions. IMPRESSION: 1. No acute fracture or dislocation in the pelvis and left hip. 2. 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 Dictated by: Dictated on workstation # [id number]
[2022-06-11 11:48] LABS: BAND NEUTROPHILS 10 %; LYMPHOCYTES % (MANUAL) 6 %; MONOCYTES % (MANUAL) 5 %; NEUTROPHILS % (MANUAL) 79 %; RBC MORPH NORMAL
--- NOTE | 2022-06-11 12:38 | ED General ---
General Chief Complaint: Respiratory Problems Stated Complaint: SOB, FEVER Nursing Triage Note: PT C/O SOB THAT STARTED FOUR DAYS AGO. PT DENIES COUGH. REPORTS BODY HURTS ALL OVER. PT AMB. TO ROOM 09 SLOWLY DUE TO SOB BUT DECLINED WC. PT SITTING UP IN BED. Source of Information: Patient Exam Limitations: No Limitations History of Present Illness Date Seen by Provider: Jun 11, 2022 Time Seen by Provider: 10:40 Initial Comments Here with report of shortness of breath and fever that started 4 days ago. States it started after raking leaves on Monday 4 days ago. He was then achy and had fever. Noted that he had intermittently over the next few days as well as intermittent shortness of breath. States his appetite has been decreased. He is fully vaccinated for flu and COVID. He is not hypoxic. He follows with Dr. Gordon. Denies nausea, vomiting or diarrhea but does have dysuria and states that he is urinating more at nighttime. Has history of hypertension but no heart disease. Does take baby aspirin daily. He is quite active in his life and still mows his lawn and does all his own yard work. He lives at home with his . Patient does report fall couple weeks ago to the left hip and still has some left hip pain and was concerned about that too. Timing/Duration: 4-5 Days, Changing Over Time Severity: Moderate Associated Systoms: No Cough; Fever/Chills, Loss of Appetite; No Nausea/Vomiting; Shortness of Air, Weakness Allergies and Home Medications Allergies Coded Allergies: No Known Drug Allergies (Unverified , 02/09/18) Patient Home Medication List Home Medication List Reviewed: Yes Allopurinol (Allopurinol) 300 Mg Tablet, 300 MG PO DAILY, (Reported) Entered as Reported by: JC THOMAS on 01/31/18 144 Amlodipine Besylate (Amlodipine Besylate) 10 Mg Tablet, 10 MG PO DAILY, (Reported) Entered as Reported by: JC THOMAS on 01/31/18 144 Aspirin (Aspirin) 81 Mg Tab.chew, 81 MG PO DAILY, (Reported) Entered as Reported by: JC THOMAS on 01/31/18 1444 Atorvastatin Calcium (Atorvastatin Calcium) 40 Mg Tablet, 40 MG PO DAILY, (Reported) Entered as Reported by: JC THOMAS on 01/31/18 1444 Calcium Carbonate/Vitamin D3 (Caltrate 600 + D Soft Chew Tab) 1 Each Tab.chew, 2 EACH PO DAILY, (Reported) Entered as Reported by: JC THOMAS on 01/31/18 144 Cyclobenzaprine HCl (Cyclobenzaprine HCl) 5 Mg Tablet, 5 MG PO DAILY, (Reported) Entered as Reported by: JC THOMAS on 01/31/18 144 Docusate Sodium (Docusate Sodium) 100 Mg Capsule, 100 MG PO BID, (Reported) Entered as Reported by: JC THOMAS on 01/31/18 144 Famotidine (Acid [employer] (FAMOTIDINE)) 20 Mg Tablet, 20 MG PO DAILY, (Reported) Entered as Reported by: JC THOMAS on 01/31/18 144 Irbesartan (Irbesartan) 300 Mg Tablet, PO DAILY, (Reported) Entered as Reported by: JC THOMAS on 01/31/18 144 Isosorbide Mononitrate (Isosorbide Mononitrate ER) 30 Mg Tab.er.24h, 30 MG PO DAILY, (Reported) Entered as Reported by: JC THOMAS on 01/31/18 144 Meloxicam (Meloxicam) 15 Mg Tablet, 15 MG PO DAILY, (Reported) Entered as Reported by: JC THOMAS on 01/31/18 144 Metoprolol Succinate (Metoprolol Succinate) 25 Mg Tab.er.24h, 25 MG PO DAILY, (Reported) Entered as Reported by: JC THOMAS on 01/31/18 144 Terazosin HCl (Terazosin HCl) 2 Mg Capsule, 2 MG PO HS, (Reported) Entered as Reported by: JC THOMAS on 01/31/18 144 Ubidecarenone/Vit E Acetate (Co Q-10 100 mg Softgel) 1 Each Capsule, 1 EACH PO D AILY, (Reported) Entered as Reported by: JC THOMAS on 01/31/18 144 Review of Systems Review of Systems Constitutional: see HPI, chills, fever, weakness EENTM: nose congestion; No throat pain Respiratory: No cough; short of breath Cardiovascular: No chest pain, No edema Gastrointestinal: No nausea, No vomiting Genitourinary: see HPI Musculoskeletal: muscle pain Skin: No change in color, No lesions Psychiatric/Neurological: See HPI Past Wharnme-Fotlmi-Bopfin Hx Patient Social History Tobacco Use?: No Substance use?: No Alcohol Use?: Yes Alcohol type: Beer Alcohol Frequency: Daily Pt feels they are or have been: No Immunizations Up To Date First/Initial COVID19 Vaccinat: 2021 Second COVID19 Vaccination Anil: 2021 Third COVID19 Vaccination Date: 2021 COVID19 Vaccine Certified Physician Assistant: MODERNA Past Medical History Surgery/Hospitalization HX: PMH;HTN. SUGERGY; BILATERAL KNEE REPLACEMENTS, RT SHOULDER REPLACEMENT, AND CARDIAC STENT. Surgeries: Yes (RIGHT KNEE SURGERY) Cardiac, Coronary Stent, Orthopedic Respiratory: No Cardiac: Yes (STENTS 9 YRS.AGO) Coronary Artery Disease Neurological: No Gastrointestinal: No Musculoskeletal: Yes (RIGHT KNEE SURGERY) Arthritis Endocrine: No Cancer: No Psychosocial: No Integumentary: No Blood Disorders: No Family Medical History Reviewed Nursing Family Hx Physical Exam Vital Signs Vital Signs - First Documented 06/11/22 10:12 Temp 37.2 Pulse 101 Resp 22 B/P (MAP) 154/77 (102) Pulse Ox 95 O2 Delivery Room Air Capillary Refill : Less Than 3 Seconds Height, Weight, BMI Height: 5'10.00" Weight: 198lbs. 0.0oz. [id number]; 30.00 BMI Method:Stated General Appearance: No Apparent Distress, WD/WN HEENT: PERRL/EOMI, Other (Mucous membranes dry) Neck: Non Tender, Supple Respiratory: Lungs Clear, Normal Breath Sounds Cardiovascular: No Murmur, Tachycardia Gastrointestinal: Non Tender, Soft Back: Normal Inspection, No CVA Tenderness, No Vertebral Tenderness Extremity: Normal Range of Motion, Non Tender Neurologic/Psychiatric: Alert, Oriented x3, No Motor/Sensory Deficits Skin: Normal Color, Warm/Dry Procedures/Interventions Suture Size: 5-0 Progress/Results/Core Measures Suspected Sepsis SIRS Temperature: Pulse: 101 Respiratory Rate: 22 Laboratory Tests 06/11/22 10:18: White Blood Count 15.5H Blood Pressure 154 /77 Mean: 102 Laboratory Tests 06/11/22 10:18: Creatinine 1.24, Platelet Count 167, Total Bilirubin 2.0H Results/Orders Lab Results Laboratory Tests Test 06/11/22 10:15 06/11/22 10:18 06/11/22 11:03 Range/Units Influenza Type A (RT-PCR) Not Detected Not Detecte Influenza Type B (RT-PCR) Not Detected Not Detecte SARS-CoV-2 RNA (RT-PCR) Not Detected Not Detecte White Blood Count 15.5 H 4.3-11.0 10^3/uL Red Blood Count 4.26 L 4.30-5.52 10^6/uL Hemoglobin 13.8 13.3-17.7 g/dL Hematocrit 41 40-54 % Mean Corpuscular Volume 96 80-99 fL Mean Corpuscular Hemoglobin 32 25-34 pg Mean Corpuscular Hemoglobin Concent 34 32-36 g/dL Red Cell Distribution Width 13.2 10.0-14.5 % Platelet Count 167 130-400 10^3/uL Mean Platelet Volume 11.2 9.0-12.2 fL Immature Granulocyte % (Auto) 1 % Neutrophils (%) (Auto) 85 H 42-75 % Lymphocytes (%) (Auto) 6 L 12-44 % Monocytes (%) (Auto) 8 0-12 % Eosinophils (%) (Auto) 0 0-10 % Basophils (%) (Auto) 0 0-10 % Neutrophils # (Auto) 13.3 H 1.8-7.8 10^3/uL Lymphocytes # (Auto) 0.9 L 1.0-4.0 10^3/uL Monocytes # (Auto) 1.2 H 0.0-1.0 10^3/uL Eosinophils # (Auto) 0.0 0.0-0.3 10^3/uL Basophils # (Auto) 0.0 0.0-0.1 10^3/uL Immature Granulocyte # (Auto) 0.1 0.0-0.1 10^3/uL Neutrophils % (Manual) 79 % Lymphocytes % (Manual) 6 % Monocytes % (Manual) 5 % Band Neutrophils 10 % Blood Morphology Comment NORMAL Sodium Level 141 135-145 MMOL/L Potassium Level 4.4 3.6-5.0 MMOL/L Chloride Level 106 98-107 MMOL/L Carbon Dioxide Level 22 21-32 MMOL/L Anion Gap 13 5-14 MMOL/L Blood Urea Nitrogen 20 H 7-18 MG/DL Creatinine 1.24 0.60-1.30 MG/DL Estimat Glomerular Filtration Rate 56 BUN/Creatinine Ratio 16 Glucose Level 264 H 70-105 MG/DL Calcium Level 10.3 H 8.5-10.1 MG/DL Corrected Calcium 10.4 H 8.5-10.1 MG/DL Total Bilirubin 2.0 H 0.1-1.0 MG/DL Aspartate Amino Transf (AST/SGOT) 67 H 5-34 U/L Alanine Aminotransferase (ALT/SGPT) 83 H 0-55 U/L Alkaline Phosphatase 213 H 40-136 U/L Troponin I < 0.028 <0.028 NG/ML C-Reactive Protein High Sensitivity 21.60 H 0.00-0.50 MG/DL Total Protein 7.4 6.4-8.2 GM/DL Albumin 3.9 3.2-4.5 GM/DL Urine Color ORANGE Urine Clarity CLEAR Urine pH 6.0 5-9 Urine Specific [place] 1.025 H 1.016-1.022 Urine Protein 3+ H NEGATIVE Urine Glucose (UA) 1+ H NEGATIVE Urine Ketones NEGATIVE NEGATIVE Urine Nitrite NEGATIVE NEGATIVE Urine Bilirubin 1+ H NEGATIVE Urine Urobilinogen 4.0 < = 1.0 MG/DL Urine Leukocyte Esterase NEGATIVE NEGATIVE Urine RBC (Auto) 3+ H NEGATIVE Urine RBC 5-10 H /HPF Urine WBC 0-2 /HPF Urine Squamous Epithelial Cells 0-2 /HPF Urine Crystals PRESENT H /LPF Urine Amorphous Sediment FEW RONNI URATES H /LPF Urine Bacteria TRACE /HPF Urine Casts NONE /LPF Urine Mucus SMALL H /LPF Urine Culture Indicated NO My Orders Orders - MIRANDA JEFFREY MD Ekg Tracing (06/11/22 10:12) Cbc With Automated Diff (06/11/22 10:47) Comprehensive Metabolic Panel (06/11/22 10:47) Hs C Reactive Protein (06/11/22 10:47) Influenza A And B By Pcr (06/11/22 10:47) Chest 1 View, Ap/Pa Only (06/11/22 10:47) Covid 19 Inhouse Test (06/11/22 10:47) Isolation Central Supply Req (06/11/22 10:49) Ua Culture If Indicated (06/11/22 10:59) Troponin I Cache (06/11/22 10:59) Pelvis With Left Hip 2-3 Views (06/11/22 10:59) Manual Differential (06/11/22 10:18) Ed Iv/Invasive Line Start (06/11/22 12:38) Ns Iv 500 Ml (Sodium Chloride 0.9%) (06/11/22 12:45) Medications Given in ED Current Medications Medications Dose Ordered Sig/Izabel Route Start Time Stop Time Status Last Admin Dose Admin Sodium Chloride 500 ml @ 0 mls/hr Q0M ONCE IV 06/11/22 12:45 06/11/22 12:46 DC 06/11/22 12:50 1,000 MLS/HR Vital Signs/I&O 06/11/22 10:12 Temp 37.2 Pulse 101 Resp 22 B/P (MAP) 154/77 (102) Pulse Ox 95 O2 Delivery Room Air Capillary Refill : Less Than 3 Seconds Blood Pressure Mean: 102 Progress Note : Progress Note Seen and evaluated. IV, labs, EKG, chest x-ray and left hip and pelvis x-ray ordered. Labs include CBC, CMP and troponin. CRP and UA also ordered. We will check for influenza and COVID. Monitor patient. Differential includes pneumonia, UTI, viral illness, dehydration, electrolyte abnormality. 1241: Labs reviewed and do show mild elevation white count of 15.5 with hemoglobin of 13.8 and platelets of 167. Influenza and COVID are negative. Chemistries show normal electrolytes with elevated glucose. Does have slight elevation in total bili at 2.0. He is having no abdominal pain and I did reevaluate and this is still negative. He has known cholelithiasis. This may be secondary to the recent illness. We will give normal saline 500 mL bolus. UA does show urine concentration but no UTI. Chest x-ray interpreted by me shows no acute findings. Patient did have pelvic and hip x-ray which did not show any acute fracture. See radiology report for details. We will give fluids and see how he does afterwards. If he is doing better than we will discharge home. Patient was in full agreement with this. 1352: Patient walked quite well after fluids and is not short of breath. Patient's is here now as well. I did discuss all current findings and concerns with the . We will go ahead and initiate outpatient antibiotics due to the elevated white count and CRP. He may have low brewing pneumonia not seen on chest x-ray. There would be a consideration for sinus infection as well. Doxycycline should work for this. I did discuss at length with the patient and family about returning if there is any concerns or worsening. Both verbalized they would. Discharged home with return precautions. Patient and family verbalized understanding of instructions and agreement with plan. I did send a copy of the chart to Dr. Gordon. ECG Initial ECG Impression Date: Jun 11, 2022 Initial ECG Impression Time: 10:23 Initial ECG Rate: 89 Initial ECG Rhythm: Normal Sinus Diagnostic Imaging Diagonstic Imaging: Xray Plain Films/CT/US/NM/MRI: chest [facility] [place] [place] NAME: YAJAIRA HOFFMANN [facility] REC#: [id number] PT STATUS: REG ER : 1935 PHYSICIAN: MIRANDA JEFFREY MD ADMIT DATE: 06/11/22/ER Signed Date of Exam:06/11/22 CHEST 1 VIEW, AP/PA ONLY EXAMINATION: Chest 1 view HISTORY: Shortness of breath. Fever. COMPARISON: 12/31/2018. FINDINGS: The lung volumes are normal. No focal consolidation is seen. No large pleural effusion or pneumothorax is seen. The cardiomediastinal silhouette is normal in size and contour. There is calcified aortic atherosclerotic plaque. No acute osseous abnormality is seen. Right shoulder arthroplasty changes are seen. IMPRESSION: 1. No acute pleuroparenchymal process. Dictated by: Dictated on workstation # [id number] Dict: 06/11/22 1118 Trans: 06/11/22 1122 [place] [id number] Interpreted by: DYLON DRISCOLL DO Electronically signed by: DYLON DRISCOLL DO 06/11/22 1122 Reviewed: Reviewed by Me Diagonstic Imaging: Xray Plain Films/CT/US/NM/MRI: pelvis, hip Comments [facility] [place] [place] NAME: TAHIRAYAJAIRA Alban [facility] REC#: [id number] PT STATUS: REG ER : 1935 PHYSICIAN: MIRANDA JEFFREY MD ADMIT DATE: 06/11/22/ER Signed Date of Exam:06/11/22 PELVIS WITH LEFT HIP 2-3 VIEWS CLINICAL HISTORY: Fall 3 weeks ago. Pelvic and left hip pain. COMPARISON: None. TECHNIQUE: 4 views of the pelvis and left hip. FINDINGS: There is no acute fracture or dislocation of the pelvis and left hip. Alignment is anatomic. Degenerative changes are seen in the left hip with joint space narrowing and marginal osteophytes. No suspicious focal osseous lesions. IMPRESSION: 1. No acute fracture or dislocation in the pelvis and left hip. 2. 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 Dictated by: Dictated on workstation # [id number] Dict: 06/11/22 1119 Trans: 06/11/22 1122 [place] [id number] Interpreted by: DYLON DRISCOLL DO Electronically signed by: DYLON DRISCOLL DO 06/11/22 1122 Departure Impression Primary Impression: Bronchitis Additional Impression: Fever Qualified Codes: R50.9 - Fever, unspecified Disposition: HOME, SELF-CARE Condition: Improved Departure-Patient Inst. Decision time for Depature: 13:54 Referrals: CASSIE GORDON MD (PCP) Primary Care Physician Patient Instructions: Bronchitis, Adult ED, Fever, Adult ED Add. Discharge Instructions: All discharge instructions reviewed with patient and/or family. Voiced understanding. Take medications as directed. Follow-up with your doctor this week for recheck and further evaluation. You may need recheck of your liver enzymes and you can discuss this with her doctor as well. Return for chest pain, breathing proble ms, weakness, persistent fever or other concerns as needed. Try to drink plenty of fluids and eat a normal diet. Get plenty of rest. You may take Tylenol/acetaminophen 1000 mg every 6-8 hours as needed for fever or pain. Scripts Doxycycline Hyclate (Doxycycline Hyclate) 100 Mg Tablet 100 MG PO BID, #20 TAB 0 Refills Prov: MIRANDA JEFFREY MD 06/11/22 Copy Copies To 1: CASSIE GORDON MD, TIMOTHY D MD Jun 11, 2022 12:38
[2022-06-11] MEDS ORDERED: NS IV 500 ML 500 ML IV ONE (12:45)
[2022-06-11] MEDS ORDERED: DOXY100T2 PO (13:52)
[2022-06-11 14:11] VITALS: BP 127/63
== END 2022-06-11 14:12 | disposition home or self-care (01) ==
LOC: EDUNIT# 10:01 → ER 10:02
DX: J40 Bronchitis, not specified as acute or chronic (principal); E80.7 Disorder of bilirubin metabolism, unspecified; R73.9 Hyperglycemia, unspecified; Z20.822 Contact with and (suspected) exposure to COVID-19; Z79.82 Long term (current) use of aspirin
CPT/HCPCS: 36415; 71045; 80053; 81000; 84484; 85007; 85025; 85027; 86141; 87636; 93005

== ENCOUNTER 2022-11-30 09:21 | Emergency (ER) | payer MEDICARE, OTHER ==
[~2022-11-30] VITALS: Ht 175 cm; Wt 88.4 kg
[~2022-11-30 09:21] MED LIST changes: +DOXY100T2 PO
--- NOTE | 2022-11-30 09:41 | ED Upper Extremity ---
General Chief Complaint: Upper Extremity Stated Complaint: RT SHOULDER PAIN Nursing Triage Note: C/O RIGHT SHOULDER PAINFROM THROWING A LIMB YESTERDAY AND NOW TODAY AHS PAIN ANDLIMITED MOVEMENT; RIGHT SHOULDER HAS BEEN REPLACED. Source: patient Exam Limitations: no limitations History of Present Illness Date Seen by Provider: Nov 30, 2022 Time Seen by Provider: 09:26 Initial Comments 87-year-old male narka-upuy-cngeddmo that had a previous right shoulder replacement coming in due to right shoulder pain and difficulty moving it. Yesterday he was doing regular yard work, felt pain in it, and since then has not been able to put it above his head or behind his back. Has not had anything for pain as of yet. Did not fall, hit his head, or have any other injuries. He is otherwise denying any other acute complaints including no numbness. Allergies and Home Medications Allergies Coded Allergies: No Known Drug Allergies (Unverified , 11/30/22) Patient Home Medication List Home Medication List Reviewed: Yes Allopurinol (Allopurinol) 300 Mg Tablet, 300 MG PO DAILY, (Reported) Entered as Reported by: JC THOMAS on 01/31/18 144 Amlodipine Besylate (Amlodipine Besylate) 10 Mg Tablet, 10 MG PO DAILY, (Reported) Entered as Reported by: JC THOMAS on 01/31/18 144 Aspirin (Aspirin) 81 Mg Tab.chew, 81 MG PO DAILY, (Reported) Entered as Reported by: JC THOMAS on 01/31/18 144 Atorvastatin Calcium (Atorvastatin Calcium) 40 Mg Tablet, 40 MG PO DAILY, (Reported) Entered as Reported by: JC THOMAS on 01/31/18 144 Calcium Carbonate/Vitamin D3 (Caltrate 600 + D Soft Chew Tab) 1 Each Tab.chew, 2 EACH PO DAILY, (Reported) Entered as Reported by: JC THOMAS on 01/31/18 144 Cyclobenzaprine HCl (Cyclobenzaprine HCl) 5 Mg Tablet, 5 MG PO DAILY, (Reported) Entered as Reported by: JC THOMAS on 01/31/18 144 Docusate Sodium (Docusate Sodium) 100 Mg Capsule, 100 MG PO BID, (Reported) Entered as Reported by: JC THOMAS on 01/31/18 1444 Doxycycline Hyclate (Doxycycline Hyclate) 100 Mg Tablet, 100 MG PO BID Prescribed by: MIRANDA JEFFREY on 06/11/22 1352 Famotidine (Acid [employer] (FAMOTIDINE)) 20 Mg Tablet, 20 MG PO DAILY, (Reported) Entered as Reported by: JC THOMAS on 01/31/18 1444 Irbesartan (Irbesartan) 300 Mg Tablet, PO DAILY, (Reported) Entered as Reported by: JC THOMAS on 01/31/18 1444 Isosorbide Mononitrate (Isosorbide Mononitrate ER) 30 Mg Tab.er.24h, 30 MG PO DAILY, (Reported) Entered as Reported by: JC THOMAS on 01/31/18 144 Meloxicam (Meloxicam) 15 Mg Tablet, 15 MG PO DAILY, (Reported) Entered as Reported by: JC THOMAS on 01/31/18 1444 Metoprolol Succinate (Metoprolol Succinate) 25 Mg Tab.er.24h, 25 MG PO DAILY, (Reported) Entered as Reported by: JC THOMAS on 01/31/18 1444 Terazosin HCl (Terazosin HCl) 2 Mg Capsule, 2 MG PO HS, (Reported) Entered as Reported by: JC THOMAS on 01/31/18 1444 Ubidecarenone/Vit E Acetate (Co Q-10 100 mg Softgel) 1 Each Capsule, 1 EACH PO DAILY, (Reported) Entered as Reported by: JC THOMAS on 01/31/18 1444 Review of Systems Constitutional: No fever EENTM: no symptoms reported Respiratory: no symptoms reported Cardiovascular: no symptoms reported Gastrointestinal: no symptoms reported Genitourinary: no symptoms reported Musculoskeletal: see HPI Past Kssychi-Pjqman-Dngjrw Hx Patient Social History Tobacco Use?: No Use of E-Cig and/or Vaping dev: No Substance use?: No Alcohol Use?: Yes Alcohol type: Beer, Wine Immunizations Up To Date Influenza Vaccine Up-to-Date: Yes; Up-to-Date First/Initial COVID19 Vaccinat: 3 OR 4 Second COVID19 Vaccination Anil: 2022 Third COVID19 Vaccination Date: 2021 Past Medical History Surgery/Hospitalization HX: PMH;HTN. SUGERGY; BILATERAL KNEE REPLACEMENTS, RT SHOULDER REPLACEMENT, AND CARDIAC STENT. Surgeries: Yes (RIGHT KNEE SURGERY) Cardiac, Coronary Stent, Orthopedic Respiratory: No Cardiac: Yes (STENTS 9 YRS.AGO) Coronary Artery Disease Neurological: No Gastrointestinal: No Musculoskeletal: Yes (RIGHT KNEE SURGERY) Arthritis Endocrine: No Cancer: No Psychosocial: No Integumentary: No Blood Disorders: No Physical Exam Vital Signs Vital Signs - First Documented 11/30/22 09:27 Temp 37.5 Pulse 72 Resp 18 B/P (MAP) 117/78 (91) Pulse Ox 96 O2 Delivery Room Air Capillary Refill : Less Than 3 Seconds Height, Weight, BMI Height: 5'10.00" Weight: 198lbs. 0.0oz. 89.265444rv; 28.00 BMI Method:Stated General Appearance: WD/WN, no apparent distress HEENT: PERRL/EOMI, normal ENT inspection, pharynx normal Neck: non-tender, full range of motion, supple, normal inspection Cardiovascular: regular rate, rhythm Respiratory: chest non-tender, lungs clear, normal breath sounds, no respiratory distress, no accessory muscle use Gastrointestinal: normal bowel sounds, non tender, soft Back: normal inspection, no vertebral tenderness Shoulder: pain (Right shoulder with pain with passive and active range of motion, weak with all rotator cuff muscles on the right compared to the left, swelling anteriorly on the shoulder, normal distal pulses and sensation, normal testing specifically of the radial, median, ulnar nerves) Elbow/Forearm: normal inspection, non-tender, no evidence of injury, normal ROM Wrist: Yes normal inspection, Yes non-tender, Yes no evidence of injury, Yes normal ROM Neurologic/Psychiatric: no motor/sensory deficits, alert, normal mood/affect, oriented x 3 Skin: normal color, warm/dry Procedures/Interventions Suture Size: 5-0 Progress/Results/Core Measures Results/Orders My Orders Orders - STEVE GOOD MD Shoulder, Right, 3 Views (11/30/22 09:39) Acetaminophen Tablet (Acetaminophen Ta (11/30/22 09:45) Medications Given in ED Current Medications Medications Dose Ordered Sig/Izabel Route Start Time Stop Time Status Last Admin Dose Admin Acetaminophen 1,000 mg ONCE ONCE PO 11/30/22 09:45 11/30/22 09:46 DC 11/30/22 09:44 1,000 MG Vital Signs/I&O 11/30/22 09:27 Temp 37.5 Pulse 72 Resp 18 B/P (MAP) 117/78 (91) Pulse Ox 96 O2 Delivery Room Air Blood Pressure Mean: 91 Progress Progress Note : Progress Note 87-year-old male coming in due to right shoulder discomfort and decreased range of motion after working outside yesterday. ABCs were intact and vitals were stable on presentation. Specifically, he is neurovascularly intact in his right upper extremity. He does have some swelling to the right anterior shoulder, possible he has a shoulder dislocation. X-ray of the right shoulder ordered and interpreted by me showing no dislocation, but his shoulder replacement does appear rotated somewhat. This is also with the radiologist stated. I am able to range him passively. They also read that there could be some lucency on the proximal portion of the replacement, could be infection on the differential. This does not fit the clinical scenario. We will send the pictures to his orthopedic surgeon at [facility], give him a sling, and have him follow-up as an outpatient since it is not dislocated or broken and he is neurovascularly intact. Diagnostic Imaging Diagonstic Imaging: Xray (right shoulder) Comments [facility] [place], [place] NAME: YAJAIRA HOFFMANN [facility] REC#: [id number] PT STATUS: REG ER : 1935 PHYSICIAN: STEVE GOOD MD ADMIT DATE: 11/30/22/ER Draft Date of Exam:11/30/22 SHOULDER, RIGHT, 3 VIEWS EXAMINATION: Right shoulder radiographs, 3 views. COMPARISON: None. HISTORY: 87-year-old male, right shoulder pain after throwing. Limited range of motion. 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 There is lucency adjacent of the humeral component of the prosthesis measuring up to approximately 4 mm. There is no identified aggressive bone destruction or periosteal reaction. Humeral head component of the prosthesis appears abnormally positioned relative to the glenoid component although not frankly dislocated. There are acromioclavicular degenerative changes with 3 mm undersurface osteophytes. IMPRESSION: 1. Prominent lucency adjacent to the humeral component of the right total reverse shoulder prosthesis concerning for loosening or potentially infection. 2. Humeral component of the reverse shoulder prosthesis is abnormally aligned relative to the glenoid component and is at least abnormally rotated without denae dislocation. 3. Acromioclavicular degenerative changes. Dictated on workstation # [id number] Dict: 11/30/22 1003 Trans: 11/30/22 1010 [facility] [id number] Interpreted by: FRANCESCO ERNST MD Electronically signed by: Departure Impression Primary Impression: Shoulder pain, right Qualified Codes: M25.511 - Pain in right shoulder Disposition: 01 HOME, SELF-CARE Condition: Stable Departure-Patient Inst. Decision time for Depature: 10:40 Referrals: CASSIE GORDON MD (PCP/Family) Primary Care Physician Patient Instructions: Shoulder Pain ED Add. Discharge Instructions: Your shoulder does not look dislocated, however the shoulder replacement does not look normal, and it looks angulated. Please follow-up with Dr. Gao as so on as possible in regards to this. You can use the sling for comfort and take Tylenol as needed for pain as well. If you develop any numbness or you cannot feel your arm or develop fever we want you to be seen by doctor sooner. Dr. Gao number- [phone] STEVE GOOD MD Nov 30, 2022 09:41
[2022-11-30] MEDS ORDERED: ACETAMINOPHEN 500 MG TABLET PO ONE (09:45)
--- NOTE | 2022-11-30 10:11 | Diagnostic Imaging Report ---
EXAMINATION: Right shoulder radiographs, 3 views. COMPARISON: None. HISTORY: 87-year-old male, right shoulder pain after throwing. Limited range of motion. 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 There is lucency adjacent of the humeral component of the prosthesis measuring up to approximately 4 mm. There is no identified aggressive bone destruction or periosteal reaction. Humeral head component of the prosthesis appears abnormally positioned relative to the glenoid component although not frankly dislocated. There are acromioclavicular degenerative changes with 3 mm undersurface osteophytes. IMPRESSION: 1. Prominent lucency adjacent to the humeral component of the right total reverse shoulder prosthesis concerning for loosening or potentially infection. 2. Humeral component of the reverse shoulder prosthesis is abnormally aligned relative to the glenoid component and is at least abnormally rotated without denae dislocation. 3. Acromioclavicular degenerative changes. Dictated by: Dictated on workstation # [id number]
[2022-11-30 10:40] VITALS: BP 155/84
== END 2022-11-30 10:40 | disposition home or self-care (01) ==
LOC: EDUNIT# 09:21 → ER 09:23
DX: M25.511 Pain in right shoulder (principal); Z96.611 Presence of right artificial shoulder joint
CPT/HCPCS: 73030; 99283; A4565

== ENCOUNTER 2023-02-15 08:12 | Emergency (ER) | payer MEDICARE, OTHER ==
[~2023-02-15] VITALS: Ht 170 cm; Wt 86.0 kg
[~2023-02-15 08:12] MED LIST changes: +FAMO-356 PO; -FAMO20TA3 PO
--- NOTE | 2023-02-15 08:21 | ED Fall/Injury ---
General Stated Complaint: FALL | RT ELBOW INJ History of Present Illness Date Seen by Provider: Feb 15, 2023 Time Seen by Provider: 08:21 Initial Comments 87-year-old male presents with right elbow swelling. He reports about 10 days ago he fell and has had increased swelling and tenderness. There is some mild erythema to it. He reports the swelling has gone down a little bit but he is continue to have some pain and discomfort with it. Allergies and Home Medications Allergies Coded Allergies: No Known Drug Allergies (Unverified , 11/30/22) Patient Home Medication List Home Medication List Reviewed: Yes Allopurinol (Allopurinol) 300 Mg Tablet, 300 MG PO DAILY, (Reported) Entered as Reported by: JC THOMAS on 01/31/18 1444 Amlodipine Besylate (Amlodipine Besylate) 10 Mg Tablet, 10 MG PO DAILY, (Reported) Entered as Reported by: JC THOMAS on 01/31/18 1444 Aspirin (Aspirin) 81 Mg Tab.chew, 81 MG PO DAILY, (Reported) Entered as Reported by: JC THOMAS on 01/31/18 1444 Atorvastatin Calcium (Atorvastatin Calcium) 40 Mg Tablet, 40 MG PO DAILY, (Reported) Entered as Reported by: JC THOMAS on 01/31/18 1444 Calcium Carbonate/Vitamin D3 (Caltrate 600 + D Soft Chew Tab) 1 Each Tab.chew, 2 EACH PO DAILY, (Reported) Entered as Reported by: JC THOMAS on 01/31/18 1444 Cyclobenzaprine HCl (Cyclobenzaprine HCl) 5 Mg Tablet, 5 MG PO DAILY, (Reported) Entered as Reported by: JC THOMAS on 01/31/18 1444 Docusate Sodium (Docusate Sodium) 100 Mg Capsule, 100 MG PO BID, (Reported) Entered as Reported by: JC THOMAS on 01/31/18 1444 Doxycycline Hyclate (Doxycycline Hyclate) 100 Mg Tablet, 100 MG PO BID Prescribed by: MIRANDA JEFFREY on 06/11/22 1352 Famotidine (Acid Slasher Tender (FAMOTIDINE)) 20 Mg Tablet, 20 MG PO DAILY, (Reported) Entered as Reported by: JC THOMAS on 01/31/18 1444 Irbesartan (Irbesartan) 300 Mg Tablet, PO DAILY, (Reported) Entered as Reported by: JC THOMAS on 01/31/18 1444 Isosorbide Mononitrate (Isosorbide Mononitrate ER) 30 Mg Tab.er.24h, 30 MG PO DAILY, (Reported) Entered as Reported by: JC THOMAS on 01/31/18 1444 Meloxicam (Meloxicam) 15 Mg Tablet, 15 MG PO DAILY, (Reported) Entered as Reported by: JC THOMAS on 01/31/18 1444 Metoprolol Succinate (Metoprolol Succinate) 25 Mg Tab.er.24h, 25 MG PO DAILY, (Reported) Entered as Reported by: JC THOMAS on 01/31/18 1444 Sulfamethoxazole/Trimethoprim (Bactrim Ds Tablet) 1 Each Tablet, 1 EACH PO BID Prescribed by: JAMES RAMÍREZ on 02/15/23 0849 Terazosin HCl (Terazosin HCl) 2 Mg Capsule, 2 MG PO HS, (Reported) Entered as Reported by: JC THOMAS on 01/31/18 1444 Ubidecarenone/Vit E Acetate (Co Q-10 100 mg Softgel) 1 Each Capsule, 1 EACH PO DAILY, (Reported) Entered as Reported by: JC THOMAS on 01/31/18 1444 Review of Systems Review of Systems Constitutional: see HPI Respiratory: no symptoms reported Cardiovascular: no symptoms reported Gastrointestinal: no symptoms reported Genitourinary: no symptoms reported Musculoskeletal: see HPI Skin: see HPI Past Tvtiuzj-Nrtyoy-Lhdzri Hx Immunizations Up To Date First/Initial COVID19 Vaccinat: 3 OR 4 Second COVID19 Vaccination Anil: 2021 Third COVID19 Vaccination Date: 2021 Past Medical History Surgery/Hospitalization HX: PMH;HTN. SUGERGY; BILATERAL KNEE REPLACEMENTS, RT SHOULDER REPLACEMENT, AND CARDIAC STENT. Surgeries: Yes (RIGHT KNEE SURGERY) Cardiac, Coronary Stent, Orthopedic Respiratory: No Cardiac: Yes (STENTS 9 YRS.AGO) Coronary Artery Disease Neurological: No Gastrointestinal: No Musculoskeletal: Yes (RIGHT KNEE SURGERY) Arthritis Endocrine: No Cancer: No Psychosocial: No Integumentary: No Blood Disorders: No Physical Exam Vital Signs Vital Signs - First Documented 02/15/23 08:20 Temp 37.2 Pulse 73 Resp 16 B/P (MAP) 154/83 (106) Pulse Ox 95 Capillary Refill : Height, Weight, BMI Height: 5'10.00" Weight: 198lbs. 0.0oz. [id number]; 28.00 BMI Method:Stated General Appearance: WD/WN, no apparent distress Cardiovascular: normal peripheral pulses, regular rate, rhythm Respiratory: lungs clear, normal breath sounds, no respiratory distress Gastrointestinal: non tender, soft Extremities: swelling, other (Posterior elbow hematoma) Neurologic/Psychiatric: alert, normal mood/affect, oriented x 3 Skin: other (Large olecranon hematoma/posterior elbow hematoma questionable early erythema for infection) Procedures/Interventions Suture Size: 5-0 Progress/Results/Core Measures Results/Orders My Orders Orders - JAMES RAMÍREZ DO Elbow, Right, 3 Views (02/15/23 08:24) Wound Culture (02/15/23 08:24) Vital Signs/I&O 02/15/23 08:20 Temp 37.2 Pulse 73 Resp 16 B/P (MAP) 154/83 (106) Pulse Ox 95 Progress Progress Note : Progress Note Patient's swelling was needle aspirated and only brings back blood no pus. I suspect he is likely just has an olecranon bursitis/hematoma and questionable superficial cellulitis. I will start him on Bactrim. He has a client application support specialist in [place] which she will call for a follow-up. He was placed in a sling for comfort. Patient was stable and discharged Departure Impression Primary Impression: Traumatic hematoma of right elbow Qualified Codes: S50.01XA - Contusion of right elbow, initial encounter Additional Impression: Cellulitis of right elbow Disposition: HOME, SELF-CARE Condition: Stable Departure-Patient Inst. Referrals: CASSIE GORDON MD (PCP/Family) Primary Care Physician Patient Instructions: Bursitis (DC), Cellulitis (Skin Infection), Adult (DC), HEMATOMA Add. Discharge Instructions: Please follow-up with your client application support specialist in the next couple days for recheck of your symptoms. You may use a sling as needed for comfort. Follow-up with your primary care provider as needed Scripts Sulfamethoxazole/Trimethoprim (Bactrim Ds Tablet) 1 Each Tablet 1 EACH PO BID for 7 Days, #14 TAB Prov: JAMES RAMÍREZ DO 02/15/23 JAMES RAMÍREZ DO Feb 15, 2023 08:21
[2023-02-15] MEDS ORDERED: SULF1TAB38 PO (08:49)
--- NOTE | 2023-02-15 08:51 | Diagnostic Imaging Report ---
INDICATION: Fall 2 weeks ago, hitting elbow now with extreme swelling, redness and pain. TECHNIQUE: 3 views of the right elbow CORRELATION STUDY: None FINDINGS: Findings do suggest either prior traumatic and/or degenerative-type changes with no osteophyte formation around the elbow. An acute fracture or dislocation is not demonstrated. There is rather pronounced soft tissue edema around the elbow. This includes what appears to be likely joint effusion. No radiographic evidence for foreign body or abnormal gas collection. Scattered vascular calcification. IMPRESSION: 1. Likely prior traumatic or degenerative changes of the right elbow. No acute fracture or dislocation. 2. Rather extensive edema around the right elbow. Could reflect edema, infectious or inflammatory process. Dictated by: Dictated on workstation # [id number]
[2023-02-15 09:08] VITALS: BP 154/83
== END 2023-02-15 09:08 | disposition home or self-care (01) ==
LOC: EDUNIT# 08:12 → ER 08:14
DX: S50.01XA Contusion of right elbow, initial encounter (principal); L03.113 Cellulitis of right upper limb; W19.XXXA Unspecified fall, initial encounter
CPT/HCPCS: 73080; 87070; 87205; A4565; 87077

== ENCOUNTER → 2023-03-13 | Outpatient (CLI) | payer MEDICARE, OTHER ==
[~2023-03-13] MED LIST changes: +SULF1TAB38 PO
--- NOTE | 2023-03-13 09:46 | Diagnostic Imaging Report ---
INDICATION: Right elbow pain AP, oblique, and lateral views of the right elbow were obtained and compared with 02/15/2023. There are underlying degenerative changes with osteophyte formation. There is no acute fracture. There are calcifications adjacent to the olecranon which appear chronic and are unchanged from 02/15/2023. There is soft tissue swelling. There is no overt joint effusion. IMPRESSION: Soft tissue swelling. Underlying chronic changes with no acute abnormality. Dictated by: Dictated on workstation # [id number]
== END ==
LOC: RAD 09:09
PROVIDERS: ATTEND Family Medicine
DX: M25.521 Pain in right elbow (principal); M79.89 Other specified soft tissue disorders
CPT/HCPCS: 73080